=== PATIENT | female | born 1930 | race Caucasian/White ===

== ENCOUNTER 2018-10-28 11:59 | Inpatient (IN) ==
--- NOTE | 2018-10-28 16:43 | Internal Med History&Physical ---
Date of Encounter: 10/28/18 Time of Encounter: 16:38 Internal Medicine - H&P: HPI Chief complaint: cough and shortness of breath. Admitted From: Home History of present illness: Ms. Amezquita is a 87 year old female past medical history of diabetes and hypertension with pacemaker unknow cause was transferred from [facility] with complain of shortness of breath and cough as the hospital was full. Patient has been having coughing shortness of breath for past 4-5 days. Patient was seen by PCP and was started on azithromycin. She did not feel any improvement and had to go to ER for shortness of breath. She denies any fevers or chills. Denies any previous episodes of pneumonia. Denies any recent antibiotic usage. Denies any urinary or bowel complaints. She denies any history of heart attacks or kidney problems. She lives alone by herself and take care of herself. Patient had CBC and BMP flu testing EKG urinalyses and chest x-ray. Lab test showed white count of 14, hemoglobin of 9.5, bicarbonate of 20, glucose of 257, BUNs 48, creatinine 2.1, Flu testing unremarkable. Chest x-ray showed possible right lower lobe pneumonia. EKG had paced rhythm, urine analysis unremarkable for blood, leukocyte esterase, nitrates, WBC RBC and bacteria. She received Levaquin and nebulizer treatments and 500 mL of IV fluids. Her blood pressure was stable. Per nurse when she was initially transferred she was confused and altered.. On interview patient alert oriented and able to give good history. Complains of cough and shortness of breath for 4-5 days. Confirms above-mentioned history. Denies urinary complaints. Feeling much better in terms of breathing. Discussed CODE STATUS which she has not thought about before. Agrees to the keep full code for now however if needed would only to short-term life support. Son would be next of kin. Patient currently at home on medication including verapamil, glyburide, irbesartan, mirtazapine and azithromycin. Past Med Surg Social Fam HX - Past Medical History Attestation: Yes The following information was validated with the patient. Medical history: diabetes, hypertension - Past Surgical History Surgical History: pacemaker - Social History Smoking Status: Never smoker Smokeless Tobacco Status: No Alcohol use: none Drug use: none Current living situation: Home - Independent Activity Level: Independent ambulation - Family History Father Living Status: Hx Family Cardiac Disorders: No Hx Family Respiratory Disorders: No Son Living Status: Still Living Hx Family Cardiac Disorders: No Hx Family Respiratory Disorders: No Brother Hx Family Cancer: Yes (unknown) Mother Hx Family Endocrine Disorder: Yes (diabetes) Internal Medicine - H&P: Meds Allergy/AdvReac Type Severity Reaction Status Date / Time No Known Allergies Allergy Verified 10/28/18 17:18 All Systems PM: A 10-system review of systems was performed and is negative for pertinent findings except as documented above in the HPI. - Constitutional Exam: Constitutional: Vitals as noted. Conversant. mild respiratory Distress. Eyes : Sclera white, conjunctiva clear, no lid lag, PEARLA. ENT : Grossly normal hearing. Oropharyngeal exam unremarkable. Moist mucus membranes. No JVD, no cervical lymphadenopathy. no thyromegaly or mass. Respiratory : mild accessory muscle use, no rales,. rhonchi heard on RLL. Cardiovascular : RRR, +S1, +S2. no murmur, gallop, rubs. No chest wall tenderness GI/Abdominal : Soft, Non-tender, Non-distended, normal bowel sounds, soft, no peritoneal signs. no orgenomegaly or mass appreciated. no hernia. Musculoskeletal: no deformity noted. no edema or cyanosis. warm extremities, pulses palpable and symmetrical in UE/LE. no calf tenderness. Neurological: AO X3, CN II-XII grossly intact, grossly normal motor and sensory exam. Skin: No skin rash, lesions or ulcers noted. Pych: Good insight and judgement. Intact memory. AOx3. Internal Med - H&P Results - Labs Labs: labs from [facility] including EKG, cbc, bmp, ua, cxr and flu test results reviewed. - Assessment and plan (1) Pneumonia Current Visit: Yes Status: Acute Assessment and plan: - Continue patient on Levaquin - We will follow up blood cultures and sputum cultures - flu testing negative. Will obtain respiratory infectious panel - Continue with IV fluids - keep on duonebs Qualifiers: Pneumonia type: due to unspecified organism Laterality: right Lung location: lower lobe of lung Qualified Code(s): J18.1 - Lobar pneumonia, unspecified organism (2) HTN (hypertension) Current Visit: Yes Status: Acute Assessment and plan: - Continue with home medications. - We will hold ARB Qualifiers: Hypertension type: essential hypertension Qualified Code(s): I10 - Essential (primary) hypertension (3) Diabetes type 2, uncontrolled Current Visit: Yes Status: Acute Assessment and plan: - Continue Accu-Cheks and sliding scale with ADA diet after passing swallow evaluation Qualifiers: Glycemic state: with hyperglycemia Qualified Code(s): E11.65 - Type 2 diabetes mellitus with hyperglycemia (4) Anemia Current Visit: Yes Status: Acute Assessment and plan: - Denies any dark color stool. No obvious acute bleeding - Possibly related to chronic kidney disease - Has not had any colonoscopy in past - We will obtain iron panel, ferritin, vitamin B12 and folate Qualifiers: Chronic kidney disease stage: unspecified stage Qualified Code(s): N18.9 - Chronic kidney disease, unspecified; D63.1 - Anemia in chronic kidney disease (5) Abnormal urinalysis Current Visit: Yes Status: Acute Assessment and plan: - Denies any urinary complaints - Repeat UA (6) MELL (acute kidney injury) Current Visit: Yes Status: Acute Assessment and plan: - Patient does not know whether she has kidney problems - Unknown baseline - Likely related to diabetes and blood pressure and has CKD - Obtain renal ultrasound - bun/creatinine more than 23. Likely some component of prerenal on CKD (7) DVT prophylaxis Current Visit: Yes Status: Acute Assessment and plan: - heparin - Time Spent With Patient Total time spent is greater than 50% in coordination of care (as documented) at patient's floor/unit and/or counseling patient:
[2018-10-28] MEDS ORDERED: Naloxone 0.4 MG/ML INJ IVP PRN (17:18)
[2018-10-28] MEDS ORDERED: Ipratropium/Albuterol Neb 3 ML IH PRN (17:28)
[2018-10-28] MEDS ORDERED: Ipratropium/Albuterol Neb 3 ML ONE (17:46)
[2018-10-28] MEDS: Ipratropium/Albuterol Neb 3 ML IH SCH (21:43)
[2018-10-28] MEDS: *HR* Heparin 5,000 UNIT/ML VIAL SQ SCH (21:46)
[2018-10-28] MEDS ORDERED: Acetaminophen 325 MG TABLET PO ONE (22:44)
[2018-10-29 00:08] LABS: Adenovirus Not Detected (Not Detect); Bordetella Pertussis Not Detected (Not Detect); Chlamydophila pneumoniae Not Detected (Not Detect); Coronavirus 229E Not Detected (Not Detect); Coronavirus HKU1 Not Detected (Not Detect); Coronavirus NL63 Not Detected (Not Detect); Coronavirus OC43 Not Detected (Not Detect); Human Metapneumovirus Not Detected (Not Detect); Human Rhinovirus/Enterovirus Not Detected (Not Detect); Influenza A Subtype 2009 H1 Not Detected (Not Detect); Influenza A Untypeable Not Detected (Not Detect); Influenza B Not Detected (Not Detect); Mycoplasma pneumoniae Not Detected (Not Detect); Parainfluenza Virus 1 Not Detected (Not Detect); Parainfluenza Virus 2 Not Detected (Not Detect); Parainfluenza Virus 3 Not Detected (Not Detect); Parainfluenza Virus 4 Not Detected (Not Detect); Respiratory Syncytial Virus DETECTED (Not Detect)
[2018-10-29] MEDS: Ringers Solution, Lactated 1,000 ML IVC SCH ×2 (00:15→05:50)
[2018-10-29] MEDS: Ipratropium/Albuterol Neb 3 ML IH SCH ×4 (04:46→23:00)
[2018-10-29] MEDS: *HR* Heparin 5,000 UNIT/ML VIAL SQ SCH ×3 (05:50→21:00)
[2018-10-29 07:25] LABS: Basophils # 0.1 K/mcL (0.0-0.2); Basophils % 0.4 %; Eosinophils % 0.2 %; Hematocrit 30.2 % (35.3-44.9); Immature Granulocytes % 0.6 % (0-4); Lymphocytes # 0.9 K/mcL (0.6-4.6); Lymphocytes % 5.9 %; Mean Corpuscular HGB Conc 29.8 g/dL (31.6-35.5); Mean Corpuscular Hemoglobin 28.1 pg (28.0-33.3); Mean Corpuscular Volume 94.4 fL (83.0-100.0); Mean Platelet Volume 11.3 fL (9.4-12.4); Monocytes # 0.8 K/mcL (0.0-1.3); Monocytes % 5.3 %; Neutrophils # 13.6 K/mcL (1.6-8.9); Platelet Count 212 K/mcL (140-400); Red Cell Distribution Width 15.3 % (11.5-14.5); Segmented Neutrophils % 87.6 %
[2018-10-29 08:06] LABS: Folate 22.2 ng/mL (3.0-16.0)
[2018-10-29] MEDS: Insulin LISPRO 300 UNITS/3 ML VIAL SQ SCH ×3 (08:09→17:36)
[2018-10-29 08:11] LABS: BUN/Creatinine Ratio 26 (6-26); Blood Urea Nitrogen 45 mg/dL (8-23); Calcium 9.1 mg/dL (8.6-10.3); Carbon Dioxide 18 mEq/L (23-29); Chloride 114 mEq/L (98-107); Ferritin 37 ng/mL (10-120); Glucose 164 mg/dL (70-105); Iron < 10 mcg/dL (50-170); Osmolality,Calculated 307 (280-300); Potassium 4.8 mEq/L (3.5-5.1); Sodium 141 mEq/L (136-145); Thyroid Stimulating Hormone 3.954 mcIU/mL (0.340-5.600); Transferrin 238 mg/dL (203-362); eGFR For Non-African Americans 28 (> 60)
[2018-10-29] MEDS ORDERED: Levofloxacin 750 MG/150 ML 750 MG/150 ML BAG IVPB SCH (09:00)
[2018-10-29 09:26] LABS: Estimated Average Glucose 186 mg/dl; Hemoglobin A1C 8.1 %
--- NOTE | 2018-10-29 09:52 | Internal Med Progress Note ---
Hospitalist Progress Note - Encounter Date of Encounter: 10/29/18 Time of Encounter: 09:51 - Subjective Interval History: Patient seen and examined this morning in the chest. No acute overnight events. Breathing slightly better. No fever chills nausea vomiting or diarrhea. - Exam Vitals: Temp Pulse Resp BP Pulse Ox 97.7 F 103 16 159/75 95 10/29/18 07:02 10/29/18 07:02 10/29/18 07:02 10/29/18 07:02 10/29/18 07:02 Exam: Constitutional: Vitals as noted. Conversant. mild respiratory Distress. Respiratory : mild accessory muscle use, no rales,. rhonchi heard on RLL. Crackes heard on both base. Cardiovascular : RRR, +S1, +S2. no murmur, gallop, rubs. No chest wall tenderness GI/Abdominal : Soft, Non-tender, Non-distended, normal bowel sounds, soft, no peritoneal signs. no orgenomegaly or mass appreciated. no hernia. Musculoskeletal: no deformity noted. 1+ edema or no cyanosis. warm extremities, pulses palpable and symmetrical in UE/LE. no calf tenderness. Neurological: AO X3, CN II-XII grossly intact, grossly normal motor and sensory exam. Pych: Good insight and judgement. Intact memory. AOx3. - Assessment and Plan (1) Pneumonia Current Visit: Yes Status: Acute (2) HTN (hypertension) Current Visit: Yes Status: Acute (3) Diabetes type 2, uncontrolled Current Visit: Yes Status: Acute (4) Anemia Current Visit: Yes Status: Acute (5) Abnormal urinalysis Current Visit: Yes Status: Acute (6) MELL (acute kidney injury) Current Visit: Yes Status: Acute (7) DVT prophylaxis Current Visit: Yes Status: Acute - Summary of Assessment and Plan Summary of Assessment and Plan: Pneumonia - Failed outpatient therapy - follow up blood cultures and sputum cultures, strep and legionella antigen. - White count improving from 14 to 15. - flu testing negative. RIP positive for RSV. c/w levaquin given secondary bacterial infection still possible - Will start steroids given RSV positive - Stop IVF given mild hyperchloremic acidosis and pedal edema and crackles. Obtain ECHO. - c/w duonebs HTN - hold ARB - start home verapamil Diabetes type 2, uncontrolled - Continue Accu-Cheks and sliding scale with ADA diet - Start levemir 5 HS. - HbA1c of 8.1 Anemia - Denies any dark color stool. No obvious acute bleeding - Possibly related to chronic kidney disease - Has not had any colonoscopy in past - iron panel, ferritin suggest iron deficiency. vitamin B12 and folate normal. Start iron supplementation Abnormal urinalysis - Denies any urinary complaints - Repeat UA MELL - Patient does not know whether she has kidney problems - Unknown baseline - Likely related to diabetes and HTN and has CKD, ARB use - f/u renal ultrasound - improved with IVF. But will hold now as above. DVT prophylaxis - heparin PT/OT - Time Spent with Patient Total time spent is greater than 50% in coordination of care (as documented) at patient's floor/unit and/or counseling patient: Internal Medicine: Result - Labs CBC & Chem 7: 10/29/18 07:07 10/29/18 07:07 Labs: Short CBC 10/29/18 Range/Units 07:07 WBC 15.5 H (4.3-11.1) K/mcL Hgb 9.0 L (11.5-15.4) g/dL Hct 30.2 L (35.3-44.9) % Plt Count 212 (140-400) K/mcL Neutrophils # 13.6 H (1.6-8.9) K/mcL BMP 10/29/18 07:07 Sodium 141 Potassium 4.8 Chloride 114 H Carbon Dioxide 18 L BUN 45 H Creatinine 1.73 H Glucose 164 H Calcium 9.1 Consult Discharge Plan - Plan Referrals: Jammie Schumacher MD [Primary Care Provider] - (1) Pneumonia Qualifiers: Pneumonia type: due to unspecified organism Laterality: right Lung location: lower lobe of lung Qualified Code(s): J18.1 - Lobar pneumonia, unspecified organism (2) HTN (hypertension) Qualifiers: Hypertension type: essential hypertension Qualified Code(s): I10 - Essential (primary) hypertension (3) Diabetes type 2, uncontrolled Qualifiers: Glycemic state: with hyperglycemia Qualified Code(s): E11.65 - Type 2 diabetes mellitus with hyperglycemia (4) Anemia Qualifiers: Chronic kidney disease stage: unspecified stage Qualified Code(s): N18.9 - Chronic kidney disease, unspecified; D63.1 - Anemia in chronic kidney disease
[2018-10-29] MEDS ORDERED: D5% in 0.45% NACL w KCl 10 MEQ/1,000 ML MLS IVC SCH (10:00)
[2018-10-29 12:56] LABS: Bilirubin,Urine Negative (Negative); Blood,Urine Large (Negative); Clarity,Urine Cloudy (Clear); Color,Urine Yellow (Yellow); Glucose,Urine (UA) Normal (Normal); Ketones,Urine Negative (Negative); Leukocyte Esterase,Urine Large (Negative); Nitrite,Urine Positive (Negative); PH,Urine 5.5 pH Units (5.0-8.0); Protein,Urine >=300 mg/dL (Neg-Trace); Specific Gravity,Urine 1.025 (1.010-1.025); Urobilinogen,Urine Normal (Normal)
[2018-10-29 13:03] LABS: RBC,Urine TNTC per hpf (0-3); Squamous Epithelial Cell,Urine Many per lpf (None-Few); WBC,Urine TNTC per hpf (0-3)
[2018-10-29 13:04] LABS: Bacteria,Urine Many per hpf (None-Few)
[2018-10-29 13:05] LABS: Hyaline Casts,Urine Few per lpf (None-Few)
[2018-10-29 13:06] LABS: Sodium, Urine 78.9 mEq/L
[2018-10-29] MEDS ORDERED: MethylPREDNISolone 40 MG/ML VIAL IVP ONE (13:35)
[2018-10-29] MEDS ORDERED: Furosemide 20 MG/2 ML VIAL IVP STA (16:55)
[2018-10-29 17:18] LABS: ABG Base Excess -8 mEq/L (-2 to 3); ABG HCO3 18 mEq/L (21-27); ABG Oxygen Saturation 95 % (95-98); ABG PCO2 35 mmHg (35-45); ABG PO2 82 mmHg (85-104); ABG TCO2 19 mEq/L (20-26)
[2018-10-29] MEDS: Insulin DETEMIR 100 UNIT/ML X5UNITS SQ SCH (21:00)
[2018-10-29] MEDS ORDERED: Furosemide 20 MG/2 ML VIAL IVP ONE (21:00)
[2018-10-30 04:34] LABS: Basophils % 0.2 %; Eosinophils % 0.1 %; Hematocrit 30.2 % (35.3-44.9); Hemoglobin 8.9 g/dL (11.5-15.4); Immature Granulocytes % 0.4 % (0-4); Lymphocytes # 0.4 K/mcL (0.6-4.6); Lymphocytes % 3.4 %; Mean Corpuscular HGB Conc 29.5 g/dL (31.6-35.5); Mean Corpuscular Hemoglobin 28.7 pg (28.0-33.3); Mean Corpuscular Volume 97.4 fL (83.0-100.0); Mean Platelet Volume 12.2 fL (9.4-12.4); Monocytes # 0.3 K/mcL (0.0-1.3); Platelet Count 183 K/mcL (140-400); Red Cell Distribution Width 15.4 % (11.5-14.5); Segmented Neutrophils % 93.9 %
[2018-10-30 04:52] LABS: Calcium 8.6 mg/dL (8.6-10.3); Potassium 4.6 mEq/L (3.5-5.1)
[2018-10-30 05:06] LABS: Neutrophils # 11.6 K/mcL (1.6-8.9)
[2018-10-30 05:07] LABS: Platelet Estimate Normal (Normal)
[2018-10-30] MEDS: *HR* Heparin 5,000 UNIT/ML VIAL SQ SCH ×3 (05:44→21:16)
[2018-10-30] MEDS: Ipratropium/Albuterol Neb 3 ML IH SCH ×5 (05:54→23:36)
[2018-10-30] MEDS ORDERED: Mirtazapine 15 MG TABLET PO SCH (09:00)
[2018-10-30] MEDS ORDERED: MethylPREDNISolone 40 MG/ML VIAL IVP SCH (09:00)
[2018-10-30] MEDS: Verapamil ER (24 HR) 240 MG TABLET.ER PO SCH (09:05)
[2018-10-30] MEDS: Levofloxacin 750 MG/150 ML 750 MG/150 ML BAG IVPB SCH (09:05)
[2018-10-30] MEDS: Insulin LISPRO 300 UNITS/3 ML VIAL SQ SCH ×4 (09:06→21:17)
[2018-10-30] MEDS ORDERED: Dextrose Gel 15 GM/37.5 ML TUBE PO PRN ×2 (09:15)
[2018-10-30] MEDS ORDERED: D5% in Water 1,000 ML IVC PRN (09:15)
[2018-10-30] MEDS ORDERED: *HR* Dextrose 50 % in Water (Syg) 50 ML SYRINGE IVP PRN (09:15)
--- NOTE | 2018-10-30 14:00 | Internal Med Progress Note ---
Hospitalist Progress Note - Encounter Date of Encounter: 10/30/18 Time of Encounter: 13:58 - Subjective Interval History: Pt seen and examined in the room She is sitting in chair, breathing normally. No cough, fever, sob overnight. - Exam Vitals: Temp Pulse Resp BP Pulse Ox 97.7 F 83 16 124/63 97 10/30/18 11:20 10/30/18 11:20 10/30/18 11:20 10/30/18 11:20 10/30/18 11:20 Exam: Constitutional: Vitals as noted. Conversant. mild respiratory Distress. Respiratory : mild accessory muscle use, no rales,. rhonchi heard on RLL. Crackes heard on both base. Cardiovascular : RRR, +S1, +S2. no murmur, gallop, rubs. No chest wall tenderness GI/Abdominal : Soft, Non-tender, Non-distended, normal bowel sounds, soft, no peritoneal signs. no orgenomegaly or mass appreciated. no hernia. Musculoskeletal: no deformity noted. 1+ edema or no cyanosis. warm extremities, pulses palpable and symmetrical in UE/LE. no calf tenderness. Neurological: AO X3, CN II-XII grossly intact, grossly normal motor and sensory exam. Pych: Good insight and judgement. Intact memory. AOx3. - Assessment and Plan (1) Acute respiratory failure Current Visit: Yes Status: Acute Assessment and Plan: 87-year-old female with no history of lung disease presented with acute onset of cough and shortness of breath. She was originally treated at outside hospital for pneumonia and acute renal failure. She then was transferred to this hospital for further management. Chest x-ray at the outside hospital showed possible right-sided pneumonia. Respiratory panel showed positive RSV. Patient was treated with IV antibiotics, bronchodilators, and the IV steroids. Yesterday morning, patient was found tachypniec and sob. ABG at that time showed respiratory acidosis with PCO2 at 80, patient was placed on BiPAP and she also received 1 dose of IV Lasix. - She seems breathing better this morning, O2 sats 99% on 6 L nasal cannula. No wheezing or rhonchi on physical exam, however diffuse crackles on the right side and noted. - DuoNeb changed to every 4 hours scheduled, stop IV steroids as no indication - encouraged ambulation. (2) Pneumonia Current Visit: Yes Status: Acute Assessment and Plan: - Continue patient on Levaquin - We will follow up blood cultures and sputum cultures (3) UTI (urinary tract infection) Current Visit: Yes Status: Acute Assessment and Plan: Continue IV Levaquin, pending urine cx. (4) MELL (acute kidney injury) Current Visit: Yes Status: Acute Assessment and Plan: - Patient does not know whether she has kidney problems - Unknown baseline - Likely related to diabetes and blood pressure and has CKD - Obtain renal ultrasound (5) HTN (hypertension) Current Visit: No Status: Chronic Assessment and Plan: - Continue with home medications. - We will hold ARB (6) Diabetes type 2, uncontrolled Current Visit: No Status: Chronic Assessment and Plan: - Continue Accu-Cheks and sliding scale with ADA diet after passing swallow evaluation (7) Anemia Current Visit: No Status: Chronic Assessment and Plan: - Denies any dark color stool. No obvious acute bleeding - Possibly related to chronic kidney disease - Has not had any colonoscopy in past - low iron panel, but normal ferritin, vitamin B12 and folate. (8) DVT prophylaxis Current Visit: Yes Status: Acute Assessment and Plan: - heparin - Time Spent with Patient Total time spent is greater than 50% in coordination of care (as documented) at patient's floor/unit and/or counseling patient: Greater than 35 minutes Plan of Care Discussed with: patient Internal Medicine: Result - Labs CBC & Chem 7: 10/30/18 03:20 10/30/18 03:20 Labs: Short CBC 10/30/18 Range/Units 03:20 WBC 12.3 H (4.3-11.1) K/mcL Hgb 8.9 L (11.5-15.4) g/dL Hct 30.2 L (35.3-44.9) % Plt Count 183 (140-400) K/mcL Neutrophils # 11.6 H (1.6-8.9) K/mcL BMP 10/30/18 03:20 Sodium 140 Potassium 4.6 Chloride 113 H Carbon Dioxide 16 L BUN 49 H Creatinine 1.84 H Glucose 101 Calcium 8.6 - ABG Interpretation ABG results: ABG ABG pH 7.30 pH Units (7.32-7.45) L 10/29/18 17:15 ABG pCO2 35 mmHg (35-45) 10/29/18 17:15 ABG pO2 82 mmHg (85-104) L 10/29/18 17:15 ABG O2 Saturation 95 % (95-98) 10/29/18 17:15 - Impressions Impressions Echocardiogram 10/29/18 13:31 Impressions: Incomplete study due to clinical status. LVEF unable to assess. Unable to assess. Complete study when clinical status allows. Findings: Study Quality * Incomplete study due to clinical status. ECG Findings * Atrial fibrillation.RVR. Left Ventricle * LVEF unable to assess%. * Normal LV chamber size, wall thickness. Right Ventricle * Unable to assess. Consult Discharge Plan - Plan Referrals: Jammie Schumacher MD [Primary Care Provider] - (1) Acute respiratory failure Qualifiers: Respiratory failure complication: hypercapnia Qualified Code(s): J96.02 - Acute respiratory failure with hypercapnia (2) Pneumonia Qualifiers: Pneumonia type: due to unspecified organism Laterality: right Lung location: lower lobe of lung Qualified Code(s): J18.1 - Lobar pneumonia, unspecified organism (3) UTI (urinary tract infection) Qualifiers: Urinary tract infection type: acute cystitis Hematuria presence: with hematuria Qualified Code(s): N30.01 - Acute cystitis with hematuria (5) HTN (hypertension) Qualifiers: Hypertension type: essential hypertension Qualified Code(s): I10 - Essential (primary) hypertension (6) Diabetes type 2, uncontrolled Qualifiers: Glycemic state: with hyperglycemia Qualified Code(s): E11.65 - Type 2 diabete s mellitus with hyperglycemia (7) Anemia Qualifiers: Chronic kidney disease stage: unspecified stage Qualified Code(s): N18.9 - Chronic kidney disease, unspecified; D63.1 - Anemia in chronic kidney disease
[2018-10-30] MEDS: Insulin DETEMIR 100 UNIT/ML X5UNITS SQ SCH (21:16)
[2018-10-30] MEDS ORDERED: diazePAM 10 MG/2 ML SYRINGE IVP STA (22:47)
[2018-10-31] MEDS: Ipratropium/Albuterol Neb 3 ML IH SCH ×5 (04:15→20:07)
[2018-10-31] MEDS: *HR* Heparin 5,000 UNIT/ML VIAL SQ SCH ×4 (06:31→21:01)
[2018-10-31 07:27] LABS: Basophils % 0.1 %; Hematocrit 31.7 % (35.3-44.9); Hemoglobin 9.5 g/dL (11.5-15.4); Immature Granulocytes % 0.7 % (0-4); Lymphocytes # 0.8 K/mcL (0.6-4.6); Lymphocytes % 4.3 %; Mean Corpuscular Hemoglobin 28.6 pg (28.0-33.3); Mean Corpuscular Volume 95.5 fL (83.0-100.0); Mean Platelet Volume 11.2 fL (9.4-12.4); Monocytes # 1.2 K/mcL (0.0-1.3); Monocytes % 6.2 %; Platelet Count 226 K/mcL (140-400); Red Blood Count 3.32 M/mcL (3.82-4.97); Red Cell Distribution Width 15.2 % (11.5-14.5); Segmented Neutrophils % 88.7 %
[2018-10-31 07:47] LABS: Calcium 9.3 mg/dL (8.6-10.3); Potassium 4.1 mEq/L (3.5-5.1)
[2018-10-31] MEDS: Insulin LISPRO 300 UNITS/3 ML VIAL SQ SCH ×4 (08:00→21:02)
[2018-10-31] MEDS ORDERED: Iron Sucrose Complex 400 MG in 0.9 % Sodium Chloride 250 ML IVPB ONE (08:00)
[2018-10-31] MEDS ORDERED: Albuterol 2.5 MG/3 ML NEBULIZER IH PRN (08:35)
[2018-10-31] MEDS: Verapamil ER (24 HR) 240 MG TABLET.ER PO SCH (09:44)
--- NOTE | 2018-10-31 09:52 | Internal Med Progress Note ---
Hospitalist Progress Note - Encounter Date of Encounter: 10/31/18 Time of Encounter: 09:00 - Subjective Interval History: 87-year-old female with no history of lung disease presented with acute onset of cough and shortness of breath. She was originally treated at outside hospital for pneumonia and acute renal failure. She then was transferred to this ospital for further management. Chest x-ray at the outside hospital showed possible right-sided pneumonia. Respiratory panel showed positive RSV. Patient was treated with IV antibiotics, bronchodilators, and the IV steroids. Yesterday morning, patient was found tachypniec and sob. ABG at that time showed respiratory acidosis with PCO2 at 80, patient was placed on BiPAP and she also received 1 dose of IV Lasix. - Exam Vitals: Temp Pulse Resp BP Pulse Ox 98.5 F 71 18 165/70 96 10/31/18 07:25 10/31/18 07:25 10/31/18 07:31 10/31/18 07:25 10/31/18 07:31 Exam: Constitutional: Vitals as noted. Conversant. mild respiratory Distress. Respiratory : mild accessory muscle use, no rales,. rhonchi heard on RLL. Crackes heard on both base. Cardiovascular : RRR, +S1, +S2. no murmur, gallop, rubs. No chest wall tenderness GI/Abdominal : Soft, Non-tender, Non-distended, normal bowel sounds, soft, no peritoneal signs. no orgenomegaly or mass appreciated. no hernia. Musculoskeletal: no deformity noted. 1+ edema or no cyanosis. warm extremities, pulses palpable and symmetrical in UE/LE. no calf tenderness. Neurological: AO X3, CN II-XII grossly intact, grossly normal motor and sensory exam. Pych: Good insight and judgement. Intact memory. AOx3. - Assessment and Plan (1) Acute respiratory failure Current Visit: Yes Status: Acute Assessment and Plan: Acute hypoxic hypercapnic respiratory failure likely secondary to COPD exacerbation, viral and bacterial pneumonia Pt has diffuse wheezing this am. Will start on IV steroids, continue levaquin, nebs and BIPAP as needed (2) Pneumonia Current Visit: Yes Status: Acute Assessment and Plan: Continue patient on Levaquin and supportive care for viral pneumonia We will follow up blood cultures and sputum cultures (3) HTN (hypertension) Current Visit: Yes Status: Acute Assessment and Plan: Continue with home medications. We will hold ARB (4) Diabetes type 2, uncontrolled Current Visit: Yes Status: Acute Assessment and Plan: Continue Accu-Cheks and sliding scale with ADA diet after passing swallow evaluation (5) Anemia Current Visit: Yes Status: Acute Assessment and Plan: Denies any dark color stool. No obvious acute bleeding. Possibly related to c hronic kidney disease Continue ferrous sulfate. Gave one dose of venofer this am due to severe iron deficiency (6) MELL (acute kidney injury) Current Visit: Yes Status: Acute Assessment and Plan: MELL on CKD stage 3. Possibly secondary to poor perfusion from CHF Will diurese gently and monitor creatinine (7) UTI (urinary tract infection) Current Visit: Yes Status: Acute Assessment and Plan: Continue IV Levaquin, pending urine cx. (8) DVT prophylaxis Current Visit: Yes Status: Acute Assessment and Plan: heparin (9) Pressure ulcer Current Visit: Yes Status: Acute Assessment and Plan: Pt has stage 2 pressure ulcer. Continue dressing per wound care DVT Prophylaxis: heparin sc - Time Spent with Patient Total time spent is greater than 50% in coordination of care (as documented) at patient's floor/unit and/or counseling patient: Internal Medicine: Result - Labs CBC & Chem 7: 10/31/18 07:16 10/31/18 07:16 Labs: Short CBC 10/31/18 Range/Units 07:16 WBC 19.2 H D (4.3-11.1) K/mcL Hgb 9.5 L (11.5-15.4) g/dL Hct 31.7 L (35.3-44.9) % Plt Count 226 (140-400) K/mcL Neutrophils # 17.0 H (1.6-8.9) K/mcL BMP 10/31/18 07:16 Sodium 142 Potassium 4.1 Chloride 111 H Carbon Dioxide 18 L BUN 70 H Creatinine 2.24 H Glucose 86 Calcium 9.3 - ABG Interpretation ABG results: ABG ABG pH 7.30 pH Units (7.32-7.45) L 10/29/18 17:15 ABG pCO2 35 mmHg (35-45) 10/29/18 17:15 ABG pO2 82 mmHg (85-104) L 10/29/18 17:15 ABG O2 Saturation 95 % (95-98) 10/29/18 17:15 - Impressions Impressions Chest X-Ray 10/30/18 13:25 IMPRESSION: Mild pulmonary vascular congestion and small bilateral pleural effusions does raise the possibility of mild or low grade congestive heart failure. Asymmetric airspace opacity right lower lobe would favor pneumonia or asymmetric pulmonary edema. D/ / Jose Mckenzie MD / Jose Mckenzie MD Interpreting Provider: Jose Mckenzie MD Consult Discharge Plan - Plan Referrals: Jammie Schumacher MD [Primary Care Provider] - (1) Acute respiratory failure Qualifiers: Respiratory failure complication: hypercapnia Qualified Code(s): J96.02 - Acute respiratory failure with hypercapnia (2) Pneumonia Qualifiers: Pneumonia type: due to unspecified organism Laterality: right Lung location: lower lobe of lung Qualified Code(s): J18.1 - Lobar pneumonia, unspecified organism (3) HTN (hypertension) Qualifiers: Hypertension type: essential hypertension Qualified Code(s): I10 - Essential (primary) hypertension (4) Diabetes type 2, uncontrolled Qualifiers: Glycemic state: with hyperglycemia Qualified Code(s): E11.65 - Type 2 diab etes mellitus with hyperglycemia (5) Anemia Qualifiers: Chronic kidney disease stage: unspecified stage Qualified Code(s): N18.9 - Chronic kidney disease, unspecified; D63.1 - Anemia in chronic kidney disease (7) UTI (urinary tract infection) Qualifiers: Urinary tract infection type: acute cystitis Hematuria presence: with hematuria Qualified Code(s): N30.01 - Acute cystitis with hematuria (9) Pressure ulcer Qualifiers: Pressure injury location: sacral region Pressure injury stage: stage 2 Qualified Code(s): L89.152 - Pressure ulcer of sacral region, stage 2
[2018-10-31] MEDS: Budesonide/Formoterol 160/4.5 1 PUFF INH IH SCH ×2 (11:20→20:06)
[2018-10-31] MEDS: methylPREDNISolone 125 MG/2 ML VIAL IVP SCH ×3 (12:00→23:54)
[2018-10-31] MEDS: Furosemide 20 MG/2 ML VIAL IVP SCH ×2 (12:01→21:01)
[2018-10-31] MEDS: Mirtazapine 15 MG TABLET PO SCH (21:00)
[2018-10-31] MEDS: Insulin DETEMIR 100 UNIT/ML X5UNITS SQ SCH (21:05)
[2018-11-01] MEDS: Ipratropium/Albuterol Neb 3 ML IH SCH ×7 (00:02→23:39)
[2018-11-01 04:58] LABS: Basophils % 0.1 %; Hematocrit 27.3 % (35.3-44.9); Hemoglobin 8.3 g/dL (11.5-15.4); Immature Granulocytes % 0.9 % (0-4); Lymphocytes # 0.7 K/mcL (0.6-4.6); Lymphocytes % 4.5 %; Mean Corpuscular HGB Conc 30.4 g/dL (31.6-35.5); Mean Corpuscular Hemoglobin 28.4 pg (28.0-33.3); Mean Corpuscular Volume 93.5 fL (83.0-100.0); Mean Platelet Volume 11.4 fL (9.4-12.4); Monocytes # 0.3 K/mcL (0.0-1.3); Monocytes % 2.3 %; Neutrophils # 13.4 K/mcL (1.6-8.9); Platelet Count 198 K/mcL (140-400); Red Blood Count 2.92 M/mcL (3.82-4.97); Segmented Neutrophils % 92.2 %
[2018-11-01 05:16] LABS: Calcium 8.7 mg/dL (8.6-10.3); Magnesium 2.3 mg/dL (1.6-2.6); Phosphorous 4.5 mg/dL (2.7-4.5); Potassium 3.9 mEq/L (3.5-5.1)
[2018-11-01] MEDS: *HR* Heparin 5,000 UNIT/ML VIAL SQ SCH ×3 (06:47→22:21)
[2018-11-01] MEDS: Budesonide/Formoterol 160/4.5 1 PUFF INH IH SCH ×2 (07:42→20:10)
[2018-11-01] MEDS: Insulin LISPRO 300 UNITS/3 ML VIAL SQ SCH ×4 (07:55→22:30)
[2018-11-01] MEDS: Verapamil ER (24 HR) 240 MG TABLET.ER PO SCH (07:56)
[2018-11-01] MEDS: methylPREDNISolone 125 MG/2 ML VIAL IVP SCH (07:56)
[2018-11-01] MEDS: Furosemide 20 MG/2 ML VIAL IVP SCH (07:56)
[2018-11-01] MEDS: Levofloxacin 750 MG/150 ML 750 MG/150 ML BAG IVPB SCH (07:56)
--- NOTE | 2018-11-01 08:14 | Internal Med Progress Note ---
Hospitalist Progress Note - Encounter Date of Encounter: 11/01/18 Time of Encounter: 08:10 - Subjective Interval History: 87-year-old female with no history of lung disease presented with acute onset of cough and shortness of breath. She was originally treated at outside hospital for pneumonia and acute renal failure. She then was transferred to this ospital for further management. Chest x-ray at the outside hospital showed possible right-sided pneumonia. Respiratory panel showed positive RSV. Patient was treated with IV antibiotics, bronchodilators, and the IV steroids. Yesterday morning, patient was found tachypniec and sob. ABG at that time showed respiratory acidosis with PCO2 at 80, patient was placed on BiPAP and she also received 1 dose of IV Lasix. - Exam Vitals: Temp Pulse Resp BP Pulse Ox 98.1 F 77 20 130/63 95 11/01/18 07:17 11/01/18 07:17 11/01/18 07:17 11/01/18 07:17 11/01/18 07:17 Exam: Constitutional: Vitals as noted. Conversant. mild respiratory Distress. Respiratory : mild accessory muscle use, no rales,. rhonchi heard on RLL. Crackes heard on both base. Cardiovascular : RRR, +S1, +S2. no murmur, gallop, rubs. No chest wall tenderness GI/Abdominal : Soft, Non-tender, Non-distended, normal bowel sounds, soft, no peritoneal signs. no orgenomegaly or mass appreciated. no hernia. Musculoskeletal: no deformity noted. 1+ edema or no cyanosis. warm extremities, pulses palpable and symmetrical in UE/LE. no calf tenderness. Neurological: AO X3, CN II-XII grossly intact, grossly normal motor and sensory exam. Pych: Good insight and judgement. Intact memory. AOx3. - Assessment and Plan (1) Acute respiratory failure Current Visit: Yes Status: Acute Assessment and Plan: Acute hypoxic hypercapnic respiratory failure likely secondary to COPD exacerbation, viral and bacterial pneumonia Pt has diffuse wheezing this am. Will start on IV steroids, continue levaquin, nebs and BIPAP as needed Improving. Oxygen needs decreased this am (2) Pneumonia Current Visit: Yes Status: Acute Assessment and Plan: Continue patient on Levaquin and supportive care for viral pneumonia We will follow up blood cultures and sputum cultures (3) Hydronephrosis Current Visit: Yes Status: Acute Assessment and Plan: HYdronephrosis with MELL on CKD. Will obtain CT abdomen to assess hydronephrosis (4) HTN (hypertension) Current Visit: Yes Status: Acute Assessment and Plan: Continue with home medications. We will hold ARB (5) Diabetes type 2, uncontrolled Current Visit: Yes Status: Acute Assessment and Plan: Continue Accu-Cheks and sliding scale with ADA diet after passing swallow evaluation (6) Anemia Current Visit: Yes Status: Acute Assessment and Plan: Denies any dark color stool. No obvious acute bleeding. Possibly related to chronic kidney disease Continue ferrous sulfate. Gave one dose of venofer this am due to severe iron deficiency (7) MELL (acute kidney injury) Current Visit: Yes Status: Acute Assessment and Plan: MELL on CKD stage 3. Possibly secondary to poor perfusion from CHF Will diurese gently and monitor creatinine. Patient contiues to have worsening creatinine Will discontinue diuresis and consult renal for further management (8) UTI (urinary tract infection) Current Visit: Yes Status: Acute Assessment and Plan: Continue IV Levaquin, pending urine cx. (9) Pressure ulcer Current Visit: Yes Status: Acute Assessment and Plan: Pt has stage 2 pressure ulcer. Continue dressing per wound care (10) DVT prophylaxis Current Visit: Yes Status: Acute Assessment and Plan: heparin DVT Prophylaxis: heparin sc - Time Spent with Patient Total time spent is greater than 50% in coordination of care (as documented) at patient's floor/unit and/or counseling patient: Internal Medicine: Result - Labs CBC & Chem 7: 11/01/18 04:23 11/01/18 04:23 Labs: Short CBC 11/01/18 Range/Units 04:23 WBC 14.6 H (4.3-11.1) K/mcL Hgb 8.3 L (11.5-15.4) g/dL Hct 27.3 L (35.3-44.9) % Plt Count 198 (140-400) K/mcL Neutrophils # 13.4 H (1.6-8.9) K/mcL BMP 11/01/18 04:23 Sodium 142 Potassium 3.9 Chloride 111 H Carbon Dioxide 19 L BUN 84 H Creatinine 2.46 H Glucose 187 H Calcium 8.7 - ABG Interpretation ABG results: ABG ABG pH 7.30 pH Units (7.32-7.45) L 10/29/18 17:15 ABG pCO2 35 mmHg (35-45) 10/29/18 17:15 ABG pO2 82 mmHg (85-104) L 10/29/18 17:15 ABG O2 Saturation 95 % (95-98) 10/29/18 17:15 - Impressions Impressions Echocardiogram 10/31/18 13:31 Impressions: LVEF 40-45%. Moderately dilated left ventricle. Moderate global left ventricular systolic dysfunction. Normal right ventricular structure and function. Moderately dilated left atrium. Moderate mitral annular calcification Moderate-severe eccentric mitral regurgitation. Posterior leaflet appears tethered. Moderate pulmonary hypertension. A device lead was visualized in the right atrium and right ventricle. Left Ventricular Wall Motion: Rest Echo Findings The apex, apical inferior, mid inferior, basal inferior, apical anterior, mid anterior, basal anterior, apical septal, mid inferior septal, basal inferior septal, apical lateral, mid anterior lateral, basal anterior lateral, mid anterior septal, mid inferior lateral, basal anterior septal and basal inferior lateral putnam were hypokinetic. Findings: Study Quality * Technically sub-optimal due to clinical status. ECG Findings * Atrial fibrillation. Left Ventricle * LVEF 40-45%. * Moderately dilated left ventricle. * Moderate global left ventricular systolic dysfunction. * Indeterminate diastolic function. * Atypical septal motion consistent with bundle branch block. Right Ventricle * Normal right ventricular structure and function. Left Atrium * Moderately dilated left atrium. Right Atrium * Normal right atrial size. Interatrial Septum * Interatrial septum not well evaluated. Aortic Valve * Trileaflet aortic valve. * No aortic regurgitation. * No aortic stenosis. * Normal aortic valve structure. Mitral Valve * Moderate mitral annular calcification * Moderate-severe eccentric mitral regurgitation. Posterior leaflet appears tethered. * Mild mitral stenosis. * Mean transmitral gradient is 6 mmHg. Tricuspid Valve * Mild tricuspid regurgitation. * Tricuspid valve not well visualized. * Moderate pulmonary hypertension. * Estimated RVSP is 49 mmHg. * Estimated RA pressure is 6 mmHg. Pulmonic Valve * Trace pulmonic regurgitation. * Pulmonic valve not well visualized. Aorta * Normally sized aortic root. Pericardium * The pericardium appears normal. IVC * Normal IVC dimensions and inspiratory collapse. Device lead * A device lead was visualized in the right atrium and right ventricle. Retroperitoneum Ultrasound 10/31/18 16:00 IMPRESSION: Small kidneys with mild right hydronephrosis. Bilateral renal cysts. Corticomedullary ratios are low normal. Renal size and cortical thickness is likely within normal limits for age. D/ / Jennifer Leong MD / Jennifer Leong MD Interpreting Provider: Jennifer Leong MD Consult Discharge Plan - Plan Referrals: Jammie Schumacher MD [Primary Care Provider] - (Patient is going to [facility]) (1) Acute respiratory failure Qualifiers: Respiratory failure complication: hypercapnia Qualified Code(s): J96.02 - Acute respiratory failure with hypercapnia (2) Pneumonia Qualifiers: Pneumonia type: due to unspecified organism Laterality: right Lung location: lower lobe of lung Qualified Code(s): J18.1 - Lobar pneumonia, unspecified organism (4) HTN (hypertension) Qualifiers: Hypertension type: essential hypertension Qualified Code(s): I10 - Essential (primary) hypertension (5) Diabetes type 2, uncontrolled Qualifiers: Glycemic state: with hyperglycemia Qualified Code(s): E11.65 - Type 2 diabetes mellitus with hyperglycemia (6) Anemia Qualifiers: Chronic kidney disease stage: unspecified stage Qualified Code(s): N18.9 - Chronic kidney disease, unspecified; D63.1 - Anemia in chronic kidney disease (8) UTI (urinary tract infection) Qualifiers: Urinary tract infection type: acute cystitis Hematuria presence: with hematuria Qualified Code(s): N30.01 - Acute cystitis with hematuria (9) Pressure ulcer Qualifiers: Pressure injury location: sacral region Pressure injury stage: stage 2 Qualified Code(s): L89.152 - Pressure ulcer of sacral region, stage 2
[2018-11-01] MEDS ORDERED: Acetylcysteine 10% 2 ML INHSOL IH ONE (09:42)
--- NOTE | 2018-11-01 11:44 | Nephrology Consult Note ---
<Lisa Bryan - Last Filed: 11/01/18 14:24> Date of Encounter: 11/01/18 Time of Encounter: 11:37 Assessment and Plan (1) Acute kidney injury superimposed on CKD Current Visit: Yes Status: Acute Unsure of baseline, would suggest obtaining records from PCP. Avoid nephrotoxins and renal dose. Strict I/O Retroperitoneal US did show right hydronephrosis, would suggest a CT to rule out or confirm. (2) Pressure ulcer Current Visit: Yes Status: Acute Per wound care. Qualifiers: Pressure injury location: sacral region Pressure injury stage: stage 2 Qualified Code(s): L89.152 - Pressure ulcer of sacral region, stage 2 (3) UTI (urinary tract infection) Current Visit: Yes Status: Acute New urine and culture ordered, last one appeared contaminated. Urine culture from 10/30/18 did show GraM + Cocci. Qualifiers: Urinary tract infection type: acute cystitis Hematuria presence: with hematuria Qualified Code(s): N30.01 - Acute cystitis with hematuria (4) Pneumonia Current Visit: Yes Status: Acute Blood cultures pending. Per primary. Qualifiers: Pneumonia type: due to unspecified organism Laterality: right Lung location: lower lobe of lung Qualified Code(s): J18.1 - Lobar pneumonia, unspecified organism History of Present Illness - Reason for Consult Consult date: 11/01/18 Chronic Kidney Disease Requesting physician: Miller Rubio - Chief Complaint pneumonia - History of Present Illness Ms. Amezquita is an 87 year old female who presented from [place] ER with shortness of breath and cough. Patient did not give much additional info in interview so much of the information was collected from the chart. Pt admitted to cough and shortness of breath of the past 4-5 days, was seen by PCP and started on azithromycin. She did not feel any better, so she went to ER for evaluation. Although patient appears alert and oriented for interview, she asked me twice if she was ever going to get her morning pills. I did look at the MAR and it does look like she did receive am medications. Unsure if this is her baseline or not. Patient states she does not see a [facility]ker outpatient. Per [facility] she is not established with our office. She states she does see her PCP "every once in a while". Limited labs available in [facility]. Initial GFR was 28, again unsure if this is her baseline. Denies fever, chills, nausea, vomiting, or diarrhea. Denies chest pain. She does live at home alone. She denies etoh, tobacco, or illicit drug use. Past Med Surg Social Fam HX - Past Medical History Medical history: diabetes, hypertension Additional medical history: pacemaker Psychiatric history: no psych history - Past Surgical History Surgical History: pacemaker - Social History Smoking Status: Never smoker Smokeless Tobacco Status: No Alcohol use: none Drug use: none - Family History Mother Hx Family Endocrine Disorder: Yes (diabetes) Father Living Status: Hx Family Cardiac Disorders: No Hx Family Respiratory Disorders: No Son Living Status: Still Living Hx Family Cardiac Disorders: No Hx Family Respiratory Disorders: No Brother Hx Family Cancer: Yes (unknown) Medications and Allergies Azithromycin [Zithromax] 250 mg PO DAILY 10/28/18 [History] Irbesartan [Avapro] 300 mg PO DAILY 10/28/18 [History] Mirtazapine 7.5 mg PO HS 10/28/18 [History] Verapamil HCl [Verapamil ER] 240 mg PO DAILY 10/28/18 [History] glyBURIDE [GlyBURIDE] 2.5 mg PO BIDWM 10/28/18 [History] Acetaminophen [Tylenol] 325 mg PO BID 10/29/18 [History] Fluticasone Propionate Nasal [Flonase] 1 spray NS DAILY 10/29/18 [History] Allergy/AdvReac Type Severity Reaction Status Date / Time No Known Allergies Allergy Verified 10/28/18 17:18 Review of Systems All Systems review (narrative): The remainder of the systems are negative. Constitutional: no chills, no fatigue, no fever(s) Cardiovascular: dyspnea, no chest pain, no edema Respiratory: cough, no hemoptysis, no wheezing Gastrointestinal: no change in bowel habits, no diarrhea, no nausea, no vomiting Exam - Vital Signs Vital signs: Initial Vital Signs Temp Pulse Resp BP Pulse Ox 97.8 F 97 16 163/66 97 10/28/18 16:39 10/28/18 16:39 10/28/18 16:39 10/28/18 16:39 10/28/18 16:39 Vital Signs - Last 8 Hours Temp Pulse Resp BP Pulse Ox 11/01/18 10:58 97.8 F 72 20 124/67 100 11/01/18 07:47 18 95 11/01/18 07:17 98.1 F 77 20 130/63 95 Intake and Output 10/31/18 11/01/18 11/01/18 23:59 07:59 15:59 Intake Total 270 / 270 0 / 0 Output Total 450 / 450 300 / 300 Balance 270 / 270 -450 / -450 -300 / -300 Intake: IV Fluids 270 / 270 0 / 0 Venofer 400 MG In 0.9 % Sodium 270 / 270 Chloride 250 ML @ 120 mls/hr IVPB ONCE ONE Rx#:[id number] Levaquin Premix 750mg/150 mL 0 / 0 750 mg In 150 ml @ 100 mls/hr IVPB Q48H [facility] Rx#:[id number] Output: Urine 450 / 450 300 / 300 Other: Blood Glucose* 231 166 256 - General Appearance General appearance: well-developed, well-nourished EENT: ATNC, hearing intact, vision intact Neck: supple Respiratory: clear Cardiology: no edema, normal S1, normal S2 Gastrointestinal: normoactive bowel sounds, no tenderness Integumentary: no rash, warm and dry Neurologic: alert and oriented x3 Psychiatric: mood/affect appropriate, cooperative Results - Lab Results 11/01/18 04:23 11/01/18 04:23 Most recent lab results ABG pH 7.30 pH Units (7.32-7.45) L 10/29/18 17:15 ABG pCO2 35 mmHg (35-45) 10/29/18 17:15 ABG pO2 82 mmHg (85-104) L 10/29/18 17:15 ABG HCO3 18 mEq/L (21-27) L 10/29/18 17:15 ABG O2 Saturation 95 % (95-98) 10/29/18 17:15 Calcium 8.7 mg/dL (8.6-10.3) 11/01/18 04:23 Phosphorus 4.5 mg/dL (2.7-4.5) 11/01/18 04:23 Magnesium 2.3 mg/dL (1.6-2.6) 11/01/18 04:23 Urine Creatinine 60 mg/dL 10/29/18 12:24 Urine Sodium 78.9 mEq/L 10/29/18 12:24 Consult Discharge Plan - Plan Referrals: Jammie Schumacher MD [Primary Care Provider] - ([facility] <Cali Jules - Last Filed: 11/04/18 11:21> Date of Encounter: 11/01/18 Assessment and Plan (1) Acute kidney injury superimposed on CKD Current Visit: Yes Status: Acute (2) Pneumonia Current Visit: Yes Status: Acute Qualifiers: Pneumonia type: due to unspecified organism Laterality: right Lung location: lower lobe of lung Qualified Code(s): J18.1 - Lobar pneumonia, unspecified organism (3) UTI (urinary tract infection) Current Visit: Yes Status: Acute Qualifiers: Urinary tract infection type: acute cystitis Hematuria presence: with hematuria Qualified Code(s): N30.01 - Acute cystitis with hematuria (4) Pressure ulcer Current Visit: Yes Status: Acute Qualifiers: Pressure injury location: sacral region Pressure injury stage: stage 2 Qualified Code(s): L89.152 - Pressure ulcer of sacral region, stage 2 (5) Hydronephrosis, right Current Visit: Yes Status: Acute Exam - Vital Signs Vital signs: Initial Vital Signs Temp Pulse Resp BP Pulse Ox 97.8 F 97 16 163/66 97 10/28/18 16:39 10/28/18 16:39 10/28/18 16:39 10/28/18 16:39 10/28/18 16:39 Vital Signs - Last 8 Hours Temp Pulse Resp BP Pulse Ox 11/04/18 07:41 16 98 11/04/18 07:28 97.8 F 70 16 131/62 98 11/04/18 04:16 97.7 F 75 16 111/56 95 Intake and Output 11/03/18 11/04/18 11/04/18 23:59 07:59 15:59 Intake Total 550 / 550 Output Total 300 / 300 150 / 150 Balance 250 / 250 -150 / -150 Intake: IV Fluids 550 / 550 0.9 % Sodium Chloride 250 ML @ 250 / 250 500 mls/hr IVC .Q30M ONE Rx#: [id number] Levaquin Premix 500mg/100mL 500 100 / 100 mg In 100 ml @ 100 mls/hr IVPB Q48H [facility] Rx#:[id number] Output: Urine 150 / 150 Wound Drainage 300 / 300 Right Lower Back 300 / 300 Other: # Voids 1 Blood Glucose* 236 212 Results - Lab Results 11/04/18 08:20 11/04/18 08:20 Most recent lab results ABG pH 7.30 pH Units (7.32-7.45) L 10/29/18 17:15 ABG pCO2 35 mmHg (35-45) 10/29/18 17:15 ABG pO2 82 mmHg (85-104) L 10/29/18 17:15 ABG HCO3 18 mEq/L (21-27) L 10/29/18 17:15 ABG O2 Saturation 95 % (95-98) 10/29/18 17:15 Calcium 8.4 mg/dL (8.6-10.3) L 11/04/18 08:20 Phosphorus 4.1 mg/dL (2.7-4.5) 11/04/18 08:20 Magnesium 2.1 mg/dL (1.6-2.6) 11/04/18 08:20 Urine Creatinine 60 mg/dL 10/29/18 12:24 Urine Sodium 78.9 mEq/L 10/29/18 12:24 - Attending Attestation I examined this patient and my medical decision-making was reviewed with the Resident Physician/[employer] COMMISSIONER. I agree with the documented findings, disposition and treatment plan as described except to the extent set forth below. Pt seen and examined and in brief; 87 y o female with PMH of DM and HTN transferred from [place] ER with SOB and cough. She was diagnosed with PNA with abx started but developed resp. distress deemed CHF with diuresis started. Renal fxn noted with SCr at 1.73 on presentation but worsening during stay. US of kidney showed atrophic kidneys L>R with R mild hydronephrosis noted with UA contaminated. P is a poor historian and not able to tell us about any CKD history. Exam showed elderly with good areation and LE edema bilat. Etiology of MELL unclear with diuretics, sepsis and hydronephrosis. Will repeat UA and recommend CT ab/pelvis. Will hold diuretics for now and encouraged po fluids. Avoid nephrotoxins if possible.
[2018-11-01 12:22] LABS: Uric Acid 14.9 mg/dL (2.3-7.6)
[2018-11-01 16:28] LABS: Bilirubin,Urine Negative (Negative); Blood,Urine Large (Negative); Clarity,Urine Cloudy (Clear); Color,Urine Yellow (Yellow); Glucose,Urine (UA) Normal (Normal); Ketones,Urine Negative (Negative); Leukocyte Esterase,Urine Large (Negative); Nitrite,Urine Negative (Negative); PH,Urine 5.5 pH Units (5.0-8.0); Protein,Urine 30 mg/dL (Neg-Trace); Urobilinogen,Urine Normal (Normal)
[2018-11-01 16:31] LABS: Bacteria,Urine Few per hpf (None-Few); Hyaline Casts,Urine None Seen per lpf (None-Few); RBC,Urine 50-100 per hpf (0-3); Squamous Epithelial Cell,Urine Many per lpf (None-Few); WBC,Urine TNTC per hpf (0-3)
[2018-11-01] MEDS: MethylPREDNISolone 40 MG/ML VIAL IVP SCH ×2 (17:46→22:28)
[2018-11-01] MEDS: Mirtazapine 15 MG TABLET PO SCH (22:20)
[2018-11-01] MEDS: Insulin DETEMIR 100 UNIT/ML X5UNITS SQ SCH (22:30)
[2018-11-01] MEDS ORDERED: diazePAM 10 MG/2 ML SYRINGE IVP ONE (23:56)
[2018-11-02] MEDS: Ipratropium/Albuterol Neb 3 ML IH SCH ×6 (04:34→23:58)
[2018-11-02] MEDS: *HR* Heparin 5,000 UNIT/ML VIAL SQ SCH (05:21)
[2018-11-02] MEDS: Budesonide/Formoterol 160/4.5 1 PUFF INH IH SCH ×2 (07:28→21:01)
[2018-11-02 08:27] LABS: Basophils % 0.2 %; Hematocrit 30.6 % (35.3-44.9); Hemoglobin 9.5 g/dL (11.5-15.4); Immature Granulocytes % 1.9 % (0-4); Lymphocytes # 0.9 K/mcL (0.6-4.6); Lymphocytes % 4.4 %; Mean Corpuscular Hemoglobin 28.9 pg (28.0-33.3); Mean Platelet Volume 11.9 fL (9.4-12.4); Monocytes # 0.6 K/mcL (0.0-1.3); Neutrophils # 18.1 K/mcL (1.6-8.9); Platelet Count 208 K/mcL (140-400); Red Blood Count 3.29 M/mcL (3.82-4.97); Red Cell Distribution Width 15.3 % (11.5-14.5); Segmented Neutrophils % 90.5 %
--- NOTE | 2018-11-02 08:27 | Internal Med Progress Note ---
Hospitalist Progress Note - Encounter Date of Encounter: 11/02/18 Time of Encounter: 08:00 - Subjective Interval History: 87-year-old female with no history of lung disease presented with acute onset of cough and shortness of breath. She was originally treated at outside hospital for pneumonia and acute renal failure. She then was transferred to this ospital for further management. Chest x-ray at the outside hospital showed possible right-sided pneumonia. Respiratory panel showed positive RSV. Patient was treated with IV antibiotics, bronchodilators, and the IV steroids. Yesterday morning, patient was found tachypniec and sob. ABG at that time showed respiratory acidosis with PCO2 at 80, patient was placed on BiPAP and she also received 1 dose of IV Lasix. - Exam Vitals: Temp Pulse Resp BP Pulse Ox 98.0 F 80 18 137/69 96 11/02/18 07:28 11/02/18 07:28 11/02/18 07:31 11/02/18 07:28 11/02/18 07:31 Exam: Constitutional: Vitals as noted. Conversant. mild respiratory Distress. Respiratory : mild accessory muscle use, no rales,. rhonchi heard on RLL. Crackes heard on both base. Cardiovascular : RRR, +S1, +S2. no murmur, gallop, rubs. No chest wall tenderness GI/Abdominal : Soft, Non-tender, Non-distended, normal bowel sounds, soft, no peritoneal signs. no orgenomegaly or mass appreciated. no hernia. Musculoskeletal: no deformity noted. 1+ edema or no cyanosis. warm extremities, pulses palpable and symmetrical in UE/LE. no calf tenderness. Neurological: AO X3, CN II-XII grossly intact, grossly normal motor and sensory exam. Pych: Good insight and judgement. Intact memory. AOx3. - Assessment and Plan (1) Acute respiratory failure Current Visit: Yes Status: Acute Assessment and Plan: Acute hypoxic hypercapnic respiratory failure likely secondary to COPD exacerbation, viral and bacterial pneumonia Pt has diffuse wheezing this am. Will start on IV steroids, continue levaquin, nebs and BIPAP as needed Improving. Oxygen needs decreased this am (2) Pneumonia Current Visit: Yes Status: Acute Assessment and Plan: Continue patient on Levaquin and supportive care for viral pneumonia We will follow up blood cultures and sputum cultures (3) Hydronephrosis Current Visit: Yes Status: Acute Assessment and Plan: Hydronephrosis with MELL on CKD. CT showed significant right sided hydronephrosis with possible malfunctioning ureteral stent may be etiology of MELL. Urology consulted and plan on nephrostomy tube placement by IR (4) HTN (hypertension) Current Visit: Yes Status: Acute Assessment and Plan: Continue with home medications. We will hold ARB (5) Diabetes type 2, uncontrolled Current Visit: Yes Status: Acute Assessment and Plan: Continue Accu-Cheks and sliding scale with ADA diet after passing swallow evaluation (6) Anemia Current Visit: Yes Status: Acute Assessment and Plan: Denies any dark color stool. No obvious acute bleeding. Possibly related to chronic kidney disease Continue ferrous sulfate. Gave one dose of venofer this am due to severe iron deficiency (7) MELL (acute kidney injury) Current Visit: Yes Status: Acute Assessment and Plan: MELL on CKD stage 3. Possibly secondary to poor perfusion from CHF Will diurese gently and monitor creatinine. Patient contiues to have worsening creatinine Will discontinue diuresis and consult renal for further management (8) UTI (urinary tract infection) Current Visit: Yes Status: Acute Assessment and Plan: Continue IV Levaquin, pending urine cx. (9) Pressure ulcer Current Visit: Yes Status: Acute Assessment and Plan: Pt has stage 2 pressure ulcer. Continue dressing per wound care (10) DVT prophylaxis Current Visit: Yes Status: Acute Assessment and Plan: heparin - Time Spent with Patient Total time spent is greater than 50% in coordination of care (as documented) at patient's floor/unit and/or counseling patient: Internal Medicine: Result - Labs CBC & Chem 7: 11/02/18 07:22 11/02/18 07:22 Labs: BMP 11/01/18 04:23 Sodium 142 Potassium 3.9 Chloride 111 H Carbon Dioxide 19 L BUN 84 H Creatinine 2.46 H Glucose 187 H Calcium 8.7 Urine 11/01/18 Range/Units 15:32 Urine Color Yellow (Yellow) Urine Clarity Cloudy A (Clear) Urine pH 5.5 (5.0-8.0) pH Units Ur Specific Breeding 1.020 (1.010-1.025) Urine Protein 30 H (Neg-Trace) mg/dL Urine Glucose (UA) Normal (Normal) mg/dL - ABG Interpretation ABG results: ABG ABG pH 7.30 pH Units (7.32-7.45) L 10/29/18 17:15 ABG pCO2 35 mmHg (35-45) 10/29/18 17:15 ABG pO2 82 mmHg (85-104) L 10/29/18 17:15 ABG O2 Saturation 95 % (95-98) 10/29/18 17:15 - Impressions Impressions Abdomen/Pelvis CT 11/01/18 16:30 IMPRESSION: 1. Moderate right-sided hydronephrosis with ureteral stent in place. The findings suggest possible stent malfunction. Multiple layering calculi are apparent within the calices. 2. Extensive infiltrates at the lung bases, left greater than right, consistent with a multifocal pneumonia. Small right pleural effusion. 3. Stable large left adrenal lesion consistent with an adenoma. 4. Diverticulosis with no acute features. D/ / 11/01/2018 18:47:[address] MD / darryl Interpreting Provider: Noé Way MD Consult Discharge Plan - Plan Referrals: Jammie Schumacher MD [Primary Care Provider] - (Patient is going to [facility]) (1) Acute respiratory failure Qualifiers: Respiratory failure complication: hypercapnia Qualified Code(s): J96.02 - Acute respiratory failure with hypercapnia (2) Pneumonia Qualifiers: Pneumonia type: due to unspecified organism Laterality: right Lung location: lower lobe of lung Qualified Code(s): J18.1 - Lobar pneumonia, unspecified organism (3) Hydronephrosis Qualifiers: Qualified Code(s): N13.30 - Unspecified hydronephrosis (4) HTN (hypertension) Qualifiers: Hypertension type: essential hypertension Qualified Code(s): I10 - Essential (primary) hypertension (5) Diabetes type 2, uncontrolled Qualifiers: Glycemic state: with hyperglycemia Qualified Code(s): E11.65 - Type 2 diabet es mellitus with hyperglycemia (6) Anemia Qualifiers: Chronic kidney disease stage: unspecified stage Qualified Code(s): N18.9 - Chronic kidney disease, unspecified; D63.1 - Anemia in chronic kidney disease (8) UTI (urinary tract infection) Qualifiers: Urinary tract infection type: acute cystitis Hematuria presence: with hematuria Qualified Code(s): N30.01 - Acute cystitis with hematuria (9) Pressure ulcer Qualifiers: Pressure injury location: sacral region Pressure injury stage: stage 2 Qualified Code(s): L89.152 - Pressure ulcer of sacral region, stage 2
[2018-11-02 08:35] LABS: Calcium 9.3 mg/dL (8.6-10.3); Magnesium 2.3 mg/dL (1.6-2.6); Phosphorous 4.1 mg/dL (2.7-4.5); Potassium 3.8 mEq/L (3.5-5.1)
--- NOTE | 2018-11-02 09:09 | Urology - Consult Note ---
<Charlotte Rea N - Last Filed: 11/02/18 10:17> Date of Encounter: 11/02/18 Time of Encounter: 08:40 - Assessment and Plan (1) Hydronephrosis, right Current Visit: Yes Status: Acute Assessment and plan: Patient is an 87-year-old female who presents with moderate right-sided hydronephrosis. CT suggests malfunctioning right ureteral stent. Reviewed CT images with Dr. Marroquin. Ureteral stent appears calcified. We will plan to consult interventional radiology for right nephrostomy tube placement. Patient will be made nothing by mouth. Coagulation studies ordered. We will hold heparin until IR evaluation. (2) MELL (acute kidney injury) Current Visit: Yes Status: Acute Assessment and plan: Patient is an 87-year-old female who presents with acute kidney injury. Renal function continues to decline. Reviewed CT findings with patient. Plan IR evaluation for nephrostomy tube placement. (3) UTI (urinary tract infection) Current Visit: Yes Status: Acute Assessment and plan: Patient is an 87-year-old female who presents with MRSA urinary tract infection. Vital signs are stable and afebrile. White blood cell count remains elevated at 20.0. Patient is receiving IV Levaquin. Qualifiers: Urinary tract infection type: acute cystitis Hematuria presence: with hematuria Qualified Code(s): N30.01 - Acute cystitis with hematuria Urology CN:HPI Consult date: 11/02/18 Reason for consult Urology: Hydronephrosis History of present illness: Patient is an 87-year-old female who presents with moderate right-sided hydronephrosis, indwelling right ureteral stent, decreasing renal function, and MRSA urinary tract infection. Patient underwent a renal ultrasound after primary team noticed downward trend in renal function. Renal ultrasound rev ealed moderate hydronephrosis, and nephrology was consulted. CT scan of abdomen and pelvis was then performed and showed moderate right-sided hydronephrosis with an indwelling, malfunctioning right ureteral stent. Patient has bilateral nonobstructing renal stones. It is of note the patient is a very poor historian, and she is unaccompanied by any family members. Patient is unable to recall her past medical history. Patient is unable to recall why she has an indwelling ureteral stent, although she does provide a history of renal stones. Patient is unsure of which hospital she obtained the stent, but she states she believes it was with an outside urologist in [place]. Patient is unsure of how long she has had the right ureteral stent, but she believes it has been years. Patient states her sister may be able to provide a more accurate history. Currently, patient denies fever, chills, flank pain, gross hematuria, dysuria, incontinence. Patient's emergency contact is listed as her , but he is . Patient is unable to provide contact information for any other family members. I did attempt to phone her home residence, but there was no answer. Past Med Surg Social Fam HX - Past Medical History Medical history: diabetes, hypertension Additional medical history: pacemaker Psychiatric history: no psych history - Past Surgical History Surgical History: pacemaker - Social History Smoking Status: Never smoker Smokeless Tobacco Status: No Alcohol use: none Drug use: none - Family History Brother Hx Family Cancer: Yes (unknown) Father Living Status: Hx Family Cardiac Disorders: No Hx Family Respiratory Disorders: No Mother Hx Family Endocrine Disorder: Yes (diabetes) Son Living Status: Still Living Hx Family Cardiac Disorders: No Hx Family Respiratory Disorders: No Medications and Allergies Azithromycin [Zithromax] 250 mg PO DAILY 10/28/18 [History] Irbesartan [Avapro] 300 mg PO DAILY 10/28/18 [History] RX: Mirtazapine 7.5 mg PO HS 10/28/18 [History] RX: glyBURIDE [GlyBURIDE] 2.5 mg PO BIDWM 10/28/18 [History] Verapamil HCl [Verapamil ER] 240 mg PO DAILY 10/28/18 [History] Acetaminophen [Tylenol] 325 mg PO BID 10/29/18 [History] RX: Fluticasone Propionate Nasal [Flonase] 1 spray NS DAILY 10/29/18 [History] Allergy/AdvReac Type Severity Reaction Status Date / Time No Known Allergies Allergy Verified 10/28/18 17:18 Review of Systems - Constitutional no chills, no fatigue, no fever(s) - EENT Nose, mouth and throat: no dizziness, no headache(s) - Cardiovascular no chest pain, no dyspnea - Respiratory no cough, no dyspnea - Gastrointestinal no abdominal pain, no nausea, no vomiting - Genitourinary Genitourinary: no difficulty urinating, no dysuria, no flank pain, no hematuria, no urinary frequency, no urinary hesitancy, no urinary incontinence, no urinary urgency Menstruation: post menopausal - Musculoskeletal no back pain, no muscle weakness - Integumentary no erythema, no rash - Neurological confusion, no syncope - Psychiatric confusion, no anxiety Exam Initial Vital Signs Temp Pulse Resp BP Pulse Ox 97.8 F 97 16 163/66 97 10/28/18 16:39 10/28/18 16:39 10/28/18 16:39 10/28/18 16:39 10/28/18 16:39 - General physical appearance Present: no distress, no pain - Eyes Present: PERRL, normal ocular movement - ENT Present: normal nares, no hearing loss, no congestion - Neck Present: no masses, trachea midline - Respiratory Present: normal respiratory effort - Abdomen Abdomen: Present: soft, non tender - Integumentary Present: no rash, no abnormal pigmentation - Neurologic Present: normal coordination - Musculoskeletal Present: other (normal posture ) Urology Results - Labs 11/02/18 07:22 11/02/18 07:22 Abnormal lab results WBC 20.0 K/mcL (4.3-11.1) H 11/02/18 07:22 RBC 3.29 M/mcL (3.82-4.97) L 11/02/18 07:22 Hgb 9.5 g/dL (11.5-15.4) L 11/02/18 07:22 Hct 30.6 % (35.3-44.9) L 11/02/18 07:22 MCHC 31.0 g/dL (31.6-35.5) L 11/02/18 07:22 RDW 15.3 % (11.5-14.5) H 11/02/18 07:22 Neutrophils # 18.1 K/mcL (1.6-8.9) H 11/02/18 07:22 ABG pH 7.30 pH Units (7.32-7.45) L 10/29/18 17:15 ABG pO2 82 mmHg (85-104) L 10/29/18 17:15 ABG HCO3 18 mEq/L (21-27) L 10/29/18 17:15 ABG Total CO2 19 mEq/L (20-26) L 10/29/18 17:15 ABG Base Excess -8 mEq/L (-2 to 3) L 10/29/18 17:15 Chloride 109 mEq/L (98-107) H 11/02/18 07:22 Carbon Dioxide 18 mEq/L (23-29) L 11/02/18 07:22 BUN 101 mg/dL (8-23) H 11/02/18 07:22 Creatinine 2.95 mg/dL (0.60-1.20) H 11/02/18 07:22 Est GFR ( Amer) 18 (> 60) L 11/02/18 07:22 Est GFR (Non-Af Amer) 15 (> 60) L 11/02/18 07:22 BUN/Creatinine Ratio 34 (6-26) H 11/02/18 07:22 Glucose 183 mg/dL (70-105) H 11/02/18 07:22 POC Glucose 189 mg/dL (70-99) H 11/01/18 21:22 Hemoglobin A1c 8.1 % (-5.6) H 10/29/18 07:07 Calculated Osmolality 326 (280-300) H 11/02/18 07:22 Uric Acid 14.9 mg/dL (2.3-7.6) H 11/01/18 04:23 Iron < 10 mcg/dL (50-170) L 10/29/18 07:07 B-Natriuretic Peptide 576 pg/mL (Less than 100) H 10/31/18 07:16 Folate 22.2 ng/mL (3.0-16.0) H 10/29/18 07:07 Urine Clarity Cloudy (Clear) A 11/01/18 15:32 Urine Protein 30 mg/dL (Neg-Trace) H 11/01/18 15:32 Urine Blood Large (Negative) H 11/01/18 15:32 Ur Leukocyte Esterase Large (Negative) H 11/01/18 15:32 Urine Microscopic RBC 50-100 per hpf (0-3) H 11/01/18 15:32 Urine Microscopic WBC TNTC per hpf (0-3) H 11/01/18 15:32 Ur Squamous Epith Cells Many per lpf (None-Few) H 11/01/18 15:32 Ur Culture Indicated? NO. (NO) A 10/29/18 12:24 RSV (PCR) DETECTED (Not Detect) A 10/28/18 23:08 Diabetes panel 11/01/18 11/02/18 Range/Units 04:23 07:22 Sodium 142 140 (136-145) mEq/L Potassium 3.9 3.8 (3.5-5.1) mEq/L Chloride 111 H 109 H (98-107) mEq/L Carbon Dioxide 19 L 18 L (23-29) mEq/L BUN 84 H 101 H (8-23) mg/dL Creatinine 2.46 H 2.95 H (0.60-1.20) mg/dL Glucose 187 H 183 H (70-105) mg/dL Calcium 8.7 9.3 (8.6-10.3) mg/dL Calcium panel 11/01/18 11/02/18 Range/Units 04:23 07:22 Calcium 8.7 9.3 (8.6-10.3) mg/dL Phosphorus 4.5 4.1 (2.7-4.5) mg/dL Pituitary panel 11/01/18 11/02/18 Range/Units 04:23 07:22 Sodium 142 140 (136-145) mEq/L Potassium 3.9 3.8 (3.5-5.1) mEq/L Chloride 111 H 109 H (98-107) mEq/L Carbon Dioxide 19 L 18 L (23-29) mEq/L BUN 84 H 101 H (8-23) mg/dL Creatinine 2.46 H 2.95 H (0.60-1.20) mg/dL Glucose 187 H 183 H (70-105) mg/dL Calcium 8.7 9.3 (8.6-10.3) mg/dL Adrenal panel 11/01/18 11/02/18 Range/Units 04:23 07:22 Sodium 142 140 (136-145) mEq/L Potassium 3.9 3.8 (3.5-5.1) mEq/L Chloride 111 H 109 H (98-107) mEq/L Carbon Dioxide 19 L 18 L (23-29) mEq/L BUN 84 H 101 H (8-23) mg/dL Creatinine 2.46 H 2.95 H (0.60-1.20) mg/dL Glucose 187 H 183 H (70-105) mg/dL Calcium 8.7 9.3 (8.6-10.3) mg/dL All other labs normal. - Imaging CT scan - abdomen: report reviewed, image reviewed CT scan - pelvis: report reviewed, image reviewed US - kidney/bladder: report reviewed Consult Discharge Plan - Plan Referrals: Jammie Schumacher MD [Primary Care Provider] - (Patient is going to [facility]) <Tito Marroquin - Last Filed: 11/02/18 18:06> Date of Encounter: 11/02/18 Urology CN:HPI History of present illness: Patient was seen and examined independently. Agree with the plan as written by Charlotte Rea. I was able to discuss the patient's condition with her son and daughter. Patient has had the ureteral stent for 1-1/2 years. She was following with an outside urologist Dr. Simeon. Unsure why the patient did not have her ureteral stent exchange. 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 We will continue to follow along closely. Exam Initial Vital Signs Temp Pulse Resp BP Pulse Ox 97.8 F 97 16 163/66 97 10/28/18 16:39 10/28/18 16:39 10/28/18 16:39 10/28/18 16:39 10/28/18 16:39 Urology Results - Labs 11/02/18 07:22 11/02/18 07:22 Abnormal lab results WBC 20.0 K/mcL (4.3-11.1) H 11/02/18 07:22 RBC 3.29 M/mcL (3.82-4.97) L 11/02/18 07:22 Hgb 9.5 g/dL (11.5-15.4) L 11/02/18 07:22 Hct 30.6 % (35.3-44.9) L 11/02/18 07:22 MCHC 31.0 g/dL (31.6-35.5) L 11/02/18 07:22 RDW 15.3 % (11.5-14.5) H 11/02/18 07:22 Neutrophils # 18.1 K/mcL (1.6-8.9) H 11/02/18 07:22 PT 13.6 Seconds (9.4-12.1) H 11/02/18 12:29 APTT 39.8 Seconds (26.0-36.0) H 11/02/18 12:29 ABG pH 7.30 pH Units (7.32-7.45) L 10/29/18 17:15 ABG pO2 82 mmHg (85-104) L 10/29/18 17:15 ABG HCO3 18 mEq/L (21-27) L 10/29/18 17:15 ABG Total CO2 19 mEq/L (20-26) L 10/29/18 17:15 ABG Base Excess -8 mEq/L (-2 to 3) L 10/29/18 17:15 Chloride 109 mEq/L (98-107) H 11/02/18 07:22 Carbon Dioxide 18 mEq/L (23-29) L 11/02/18 07:22 BUN 101 mg/dL (8-23) H 11/02/18 07:22 Creatinine 2.95 mg/dL (0.60-1.20) H 11/02/18 07:22 Est GFR ( Amer) 18 (> 60) L 11/02/18 07:22 Est GFR (Non-Af Amer) 15 (> 60) L 11/02/18 07:22 BUN/Creatinine Ratio 34 (6-26) H 11/02/18 07:22 Glucose 183 mg/dL (70-105) H 11/02/18 07:22 POC Glucose 189 mg/dL (70-99) H 11/01/18 21:22 Hemoglobin A1c 8.1 % (-5.6) H 10/29/18 07:07 Calculated Osmolality 326 (280-300) H 11/02/18 07:22 Uric Acid 14.9 mg/dL (2.3-7.6) H 11/01/18 04:23 Iron < 10 mcg/dL (50-170) L 10/29/18 07:07 B-Natriuretic Peptide 576 pg/mL (Less than 100) H 10/31/18 07:16 Folate 22.2 ng/mL (3.0-16.0) H 10/29/18 07:07 Urine Clarity Cloudy (Clear) A 11/01/18 15:32 Urine Protein 30 mg/dL (Neg-Trace) H 11/01/18 15:32 Urine Blood Large (Negative) H 11/01/18 15:32 Ur Leukocyte Esterase Large (Negative) H 11/01/18 15:32 Urine Microscopic RBC 50-100 per hpf (0-3) H 11/01/18 15:32 Urine Microscopic WBC TNTC per hpf (0-3) H 11/01/18 15:32 Ur Squamous Epith Cells Many per lpf (None-Few) H 11/01/18 15:32 Ur Culture Indicated? NO. (NO) A 10/29/18 12:24 RSV (PCR) DETECTED (Not Detect) A 10/28/18 23:08 Diabetes panel 11/02/18 Range/Units 07:22 Sodium 140 (136-145) mEq/L Potassium 3.8 (3.5-5.1) mEq/L Chloride 109 H (98-107) mEq/L Carbon Dioxide 18 L (23-29) mEq/L BUN 101 H (8-23) mg/dL Creatinine 2.95 H (0.60-1.20) mg/dL Glucose 183 H (70-105) mg/dL Calcium 9.3 (8.6-10.3) mg/dL Calcium panel 11/02/18 Range/Units 07:22 Calcium 9.3 (8.6-10.3) mg/dL Phosphorus 4.1 (2.7-4.5) mg/dL Pituitary panel 11/02/18 Range/Units 07:22 Sodium 140 (136-145) mEq/L Potassium 3.8 (3.5-5.1) mEq/L Chloride 109 H (98-107) mEq/L Carbon Dioxide 18 L (23-29) mEq/L BUN 101 H (8-23) mg/dL Creatinine 2.95 H (0.60-1.20) mg/dL Glucose 183 H (70-105) mg/dL Calcium 9.3 (8.6-10.3) mg/dL Adrenal panel 11/02/18 Range/Units 07:22 Sodium 140 (136-145) mEq/L Potassium 3.8 (3.5-5.1) mEq/L Chloride 109 H (98-107) mEq/L Carbon Dioxide 18 L (23-29) mEq/L BUN 101 H (8-23) mg/dL Creatinine 2.95 H (0.60-1.20) mg/dL Glucose 183 H (70-105) mg/dL Calcium 9.3 (8.6-10.3) mg/dL All other labs normal.
[2018-11-02] MEDS: Insulin LISPRO 300 UNITS/3 ML VIAL SQ SCH ×4 (09:23→20:34)
[2018-11-02] MEDS: MethylPREDNISolone 40 MG/ML VIAL IVP SCH (09:23)
[2018-11-02] MEDS: Verapamil ER (24 HR) 240 MG TABLET.ER PO SCH (09:23)
[2018-11-02] MEDS: Doxycycline 100 MG CAPSULE PO SCH ×2 (12:19→20:28)
[2018-11-02 12:44] LABS: INR 1.2; Prothrombin Time 13.6 Seconds (9.4-12.1)
[2018-11-02 12:47] LABS: Activated Partial Thrombo Time 39.8 Seconds (26.0-36.0)
[2018-11-02] MEDS ORDERED: 0.9 % Sodium Chloride 500 ML ONE ×2 (12:59→13:24)
[2018-11-02] MEDS ORDERED: *HR* FentaNYL (PF) 100 MCG/2 ML VIAL IVP ONE (13:17)
[2018-11-02] MEDS ORDERED: CeFAZolin Premix DUPLEX 2,000 MG/50 ML BAG IVPB ONE (13:17)
[2018-11-02] MEDS ORDERED: Isovue-300 50 ML VIAL IVP ONE (13:55)
--- NOTE | 2018-11-02 14:20 | IR Procedure Note ---
Date of procedure: 11/02/18 Consent Obtained: Written consent Timeout: Correct patient and procedure verified, Correct site verified, Time out performed, Skin prep completed Local anesthetic: Lidocaine 1% Indications: right hydronephrosis, occluded ureteral stent Procedure Performed: right nephrostomy Was there an volunteer assistant present: No Site/Technique: right kidney mid pole posterior Results/Findings: hydronephrosis, no transit of contrast into ureter or stent Estimated blood loss (cc): 0 Complications: None; Tolerated procedure well Post Procedure Treatment Plan: drain to bag Specimen: NA
[2018-11-02] MEDS: predniSONE 20 MG TABLET PO SCH (16:16)
--- NOTE | 2018-11-02 18:03 | Nephrology Progress Note ---
Date of Encounter: 11/02/18 Time of Encounter: 15:00 - Assessment and Plan (1) Acute kidney injury superimposed on CKD Current Visit: Yes Status: Acute Elevated Scr in the setting of likely sepsis, obstructive uropathy and diuretics Scr worse today but s/p nephrostomtomy today should hopefully improve Continue to hold diuretics Continue to avoid nephrotoxins if possible Baseline unclear No acute indication for EDGE CUTTER just yet Uric acid elevated suggestive of pre-renal state, if renal fxn worsens again tomorrow, might need gentle fluids CPK mildly elevated, will monitor Urine eosinophils negative (2) Pneumonia Current Visit: Yes Status: Acute Per primary team. CT consistent multifocal PNA and RSV positive Qualifiers: Pneumonia type: due to unspecified organism Laterality: right Lung location: lower lobe of lung Qualified Code(s): J18.1 - Lobar pneumonia, unspecified organism (3) UTI (urinary tract infection) Current Visit: Yes Status: Acute MRSA positive culture noted, abx per primary team Qualifiers: Urinary tract infection type: acute cystitis Hematuria presence: with hematuria Qualified Code(s): N30.01 - Acute cystitis with hematuria (4) Hydronephrosis, right Current Visit: Yes Status: Acute s/p nephrostomy tube, urology following (5) Pressure ulcer Current Visit: Yes Status: Acute Qualifiers: Pressure injury location: sacral region Pressure injury stage: stage 2 Qualified Code(s): L89.152 - Pressure ulcer of sacral region, stage 2 Subjective Interval history: Pt seen and examined with interim events noted; s/p urology consulted after CT showed R hydronephrosis with calcified ureteral stent now s/p nephrostomy by IR Objective - Vital Signs Vital signs: Vital Signs Temp Pulse Resp BP Pulse Ox 11/02/18 16:26 18 100 11/02/18 16:02 97.4 F L 73 17 129/62 100 11/02/18 14:21 97.6 F 73 17 144/57 100 11/02/18 13:41 71 148/58 100 11/02/18 13:36 71 148/55 100 11/02/18 13:29 72 152/69 98 11/02/18 11:16 18 100 11/02/18 11:15 97.6 F 76 17 139/60 100 11/02/18 07:31 18 96 11/02/18 07:28 98.0 F 80 16 137/69 96 11/02/18 04:35 97.5 F L 86 16 150/69 99 11/02/18 00:40 98 F 99 16 140/53 96 11/01/18 23:40 16 100 11/01/18 21:26 98.2 F 76 16 129/51 97 11/01/18 20:12 16 97 Intake and Output 11/02/18 11/02/18 11/02/18 07:59 15:59 23:59 Intake Total 120 / 120 Output Total 115 / 115 Balance 120 / 120 -115 / -115 Intake: Oral 120 / 120 Output: Wound Drainage 115 / 115 Right Lower Back 115 / 115 Other: Meal Breakfast Percent of Meal Consumed 70% # Voids 1 # Urine Diapers 1 Blood Glucose* 195 239 209 - General Appearance General appearance: Present: well-developed, well-nourished EENT: Present: ATNC, mucous membranes moist Neck: Present: no JVD, supple Additional Comments: decreased BS bases bilat Cardiology: Present: edema (LE bilat), normal S1, normal S2 Gastrointestinal: Present: no tenderness, no guarding Integumentary: Present: warm and dry Neurologic: Present: no focal deficit Musculoskeletal: Present: no deformities Psychiatric: Present: mood/affect appropriate - Lab 11/04/18 08:20 11/04/18 08:20 Most recent lab results ABG pH 7.30 pH Units (7.32-7.45) L 10/29/18 17:15 ABG pCO2 35 mmHg (35-45) 10/29/18 17:15 ABG pO2 82 mmHg (85-104) L 10/29/18 17:15 ABG HCO3 18 mEq/L (21-27) L 10/29/18 17:15 ABG O2 Saturation 95 % (95-98) 10/29/18 17:15 Calcium 9.3 mg/dL (8.6-10.3) 11/02/18 07:22 Phosphorus 4.1 mg/dL (2.7-4.5) 11/02/18 07:22 Magnesium 2.3 mg/dL (1.6-2.6) 11/02/18 07:22 Urine Creatinine 60 mg/dL 10/29/18 12:24 Urine Sodium 78.9 mEq/L 10/29/18 12:24 Consult Discharge Plan - Plan Referrals: Jammie Schumacher MD [Primary Care Provider] - ([facility] is going [facility])
[2018-11-02] MEDS: Mirtazapine 15 MG TABLET PO SCH (20:28)
[2018-11-02] MEDS: Insulin DETEMIR 100 UNIT/ML X5UNITS SQ SCH (20:35)
[2018-11-03] MEDS: Ipratropium/Albuterol Neb 3 ML IH SCH ×6 (04:35→20:23)
[2018-11-03] MEDS ORDERED: Levofloxacin 500 MG/100 ML 500 MG/100 ML BAG IVPB SCH (07:00)
[2018-11-03] MEDS: Budesonide/Formoterol 160/4.5 1 PUFF INH IH SCH ×2 (07:44→20:23)
[2018-11-03 07:54] LABS: Basophils % 0.2 %; Immature Granulocytes % 3.1 % (0-4); Lymphocytes % 4.8 %; Mean Corpuscular HGB Conc 32.1 g/dL (31.6-35.5); Mean Corpuscular Hemoglobin 28.6 pg (28.0-33.3); Mean Corpuscular Volume 88.9 fL (83.0-100.0); Mean Platelet Volume 11.9 fL (9.4-12.4); Monocytes # 0.7 K/mcL (0.0-1.3); Monocytes % 3.5 %; Platelet Count 210 K/mcL (140-400); Red Blood Count 3.15 M/mcL (3.82-4.97); Red Cell Distribution Width 15.4 % (11.5-14.5); Segmented Neutrophils % 88.4 %
[2018-11-03] MEDS: predniSONE 20 MG TABLET PO SCH (07:58)
[2018-11-03] MEDS: Doxycycline 100 MG CAPSULE PO SCH ×2 (07:58→19:55)
[2018-11-03] MEDS: Verapamil ER (24 HR) 240 MG TABLET.ER PO SCH (07:58)
[2018-11-03 08:00] LABS: Calcium 9.1 mg/dL (8.6-10.3); Magnesium 2.2 mg/dL (1.6-2.6); Phosphorous 4.1 mg/dL (2.7-4.5); Potassium 3.8 mEq/L (3.5-5.1)
[2018-11-03] MEDS: Insulin LISPRO 300 UNITS/3 ML VIAL SQ SCH ×4 (08:00→22:51)
--- NOTE | 2018-11-03 08:31 | Urology Progress Note ---
Date of Encounter: 11/03/18 Time of Encounter: 08:29 - Assessment and Plan (1) Acute kidney injury superimposed on CKD Current Visit: Yes Status: Acute Assessment and plan: Rising creatinine. Patient has had good output from nephrostomy tube. Nephrology on board. We will await their recommendations. (2) Hydronephrosis, right Current Visit: Yes Status: Acute Assessment and plan: Status post right nephrostomy tube yesterday. Good output. (3) UTI (urinary tract infection) Current Visit: Yes Status: Acute Assessment and plan: Recommend to continue with broad-spectrum antibiotics until cultures return. Qualifiers: Urinary tract infection type: acute cystitis Hematuria presence: with hematuria Qualified Code(s): N30.01 - Acute cystitis with hematuria Progress Note Narrative: Patient seen this morning. Status post right nephrostomy tube placement yesterday secondary to severe right-sided hydronephrosis with malfunctioning right ureteral stent. Patient feels better this morning. Her serum creatinine though has worsened. Patient's white count is stable at 20,000. Cultures all pending at this time Objective Initial Vital Signs Temp Pulse Resp BP Pulse Ox 97.8 F 97 16 163/66 97 10/28/18 16:39 10/28/18 16:39 10/28/18 16:39 10/28/18 16:39 10/28/18 16:39 - General physical appearance Present: well developed, well nourished - Abdomen Present: soft. Absent: tender - Additional Exam Back: Right nephrostomy tube in good position with clear urine draining - Labs 11/03/18 07:10 11/03/18 07:10 Diabetes panel 11/02/18 11/03/18 Range/Units 07:22 07:10 Sodium 140 140 (136-145) mEq/L Potassium 3.8 3.8 (3.5-5.1) mEq/L Chloride 109 H 109 H (98-107) mEq/L Carbon Dioxide 18 L 17 L (23-29) mEq/L BUN 101 H 114 H (8-23) mg/dL Creatinine 2.95 H 3.37 H (0.60-1.20) mg/dL Glucose 183 H 228 H (70-105) mg/dL Calcium 9.3 9.1 (8.6-10.3) mg/dL Calcium panel 11/02/18 11/03/18 Range/Units 07:22 07:10 Calcium 9.3 9.1 (8.6-10.3) mg/dL Phosphorus 4.1 4.1 (2.7-4.5) mg/dL Pituitary panel 11/02/18 11/03/18 Range/Units 07:22 07:10 Sodium 140 140 (136-145) mEq/L Potassium 3.8 3.8 (3.5-5.1) mEq/L Chloride 109 H 109 H (98-107) mEq/L Carbon Dioxide 18 L 17 L (23-29) mEq/L BUN 101 H 114 H (8-23) mg/dL Creatinine 2.95 H 3.37 H (0.60-1.20) mg/dL Glucose 183 H 228 H (70-105) mg/dL Calcium 9.3 9.1 (8.6-10.3) mg/dL Adrenal panel 11/02/18 11/03/18 Range/Units 07:22 07:10 Sodium 140 140 (136-145) mEq/L Potassium 3.8 3.8 (3.5-5.1) mEq/L Chloride 109 H 109 H (98-107) mEq/L Carbon Dioxide 18 L 17 L (23-29) mEq/L BUN 101 H 114 H (8-23) mg/dL Creatinine 2.95 H 3.37 H (0.60-1.20) mg/dL Glucose 183 H 228 H (70-105) mg/dL Calcium 9.3 9.1 (8.6-10.3) mg/dL Consult Discharge Plan - Plan Referrals: Jammie Schumacher MD [Primary Care Provider] - (Patient is going to [facility])
[2018-11-03] MEDS ORDERED: 0.9 % Sodium Chloride 250 ML IVC ONE (08:35)
--- NOTE | 2018-11-03 08:42 | Internal Med Progress Note ---
Hospitalist Progress Note - Encounter Date of Encounter: 11/03/18 Time of Encounter: 08:40 - Subjective Interval History: 87-year-old female with no history of lung disease presented with acute onset of cough and shortness of breath. She was originally treated at outside hospital for pneumonia and acute renal failure. She then was transferred to this [facility] for further management. Chest x-ray at the outside hospital showed possible right-sided pneumonia. Respiratory panel showed positive RSV. Patient was treated with IV antibiotics, bronchodilators, and the IV steroids. Yesterday morning, patient was found tachypniec and sob. ABG at that time showed respiratory acidosis with PCO2 at 80, patient was placed on BiPAP and she also received 1 dose of IV Lasix. - Exam Vitals: Temp Pulse Resp BP Pulse Ox 97.8 F 83 16 148/61 97 11/03/18 07:23 11/03/18 07:23 11/03/18 07:23 11/03/18 07:23 11/03/18 07:23 Exam: Constitutional: Vitals as noted. Conversant. mild respiratory Distress. Respiratory : mild accessory muscle use, no rales,. rhonchi heard on RLL. Crackes heard on both base. Cardiovascular : RRR, +S1, +S2. no murmur, gallop, rubs. No chest wall tenderness GI/Abdominal : Soft, Non-tender, Non-distended, normal bowel sounds, soft, no peritoneal signs. no orgenomegaly or mass appreciated. no hernia. Musculoskeletal: no deformity noted. 1+ edema or no cyanosis. warm extremities, pulses palpable and symmetrical in UE/LE. no calf tenderness. Neurological: AO X3, CN II-XII grossly intact, grossly normal motor and sensory exam. Pych: Good insight and judgement. Intact memory. AOx3. - Assessment and Plan (1) MELL (acute kidney injury) Current Visit: Yes Status: Acute Assessment and Plan: MELL on CKD stage 3. Likely secondary to hydronephrosis with occluded stent seen on stent Had nephrostomy tube placed on 11/02 and has good output. Creatinine continues to trend up Will hydrate gently with a 250 cc bolus in light of CHF and monitor creatinine Renal following and appreciate recs (2) Hydronephrosis Current Visit: Yes Status: Acute Assessment and Plan: Hydronephrosis with MELL on CKD. CT showed significant right sided hydronephrosis with possible malfunctioning ureteral stent s/p nephrostomy tube placement. gentle hydration (3) UTI (urinary tract infection) Current Visit: Yes Status: Acute Assessment and Plan: Urine cultures growing MRSA. Continue doxycycline (4) Acute respiratory failure Current Visit: Yes Status: Acute Assessment and Plan: Acute hypoxic hypercapnic respiratory failure likely secondary to COPD exacerbation, viral and bacterial pneumonia Pt has diffuse wheezing this am. Will start on IV steroids, continue levaquin, nebs and BIPAP as needed Improved. Wean off steroids (5) Pneumonia Current Visit: Yes Status: Acute Assessment and Plan: Continue patient on Levaquin and supportive care for viral pneumonia We will follow up blood cultures and sputum cultures (6) HTN (hypertension) Current Visit: Yes Status: Acute Assessment and Plan: Continue with home medications. We will hold ARB (7) Diabetes type 2, uncontrolled Current Visit: Yes Status: Acute Assessment and Plan: Continue Accu-Cheks and sliding scale with ADA diet after passing swallow evaluation (8) Anemia Current Visit: Yes Status: Acute Assessment and Plan: Denies any dark color stool. No obvious acute bleeding. Possibly related to chronic kidney disease Continue ferrous sulfate. Gave one dose of venofer this am due to severe iron deficiency (9) Pressure ulcer Current Visit: Yes Status: Acute Assessment and Plan: Pt has stage 2 pressure ulcer. Continue dressing per wound care (10) DVT prophylaxis Current Visit: Yes Status: Acute Assessment and Plan: heparin - Time Spent with Patient Total time spent is greater than 50% in coordination of care (as documented) at patient's floor/unit and/or counseling patient: Internal Medicine: Result - Labs CBC & Chem 7: 11/03/18 07:10 11/03/18 07:10 Labs: Short CBC 11/03/18 Range/Units 07:10 WBC 20.4 H (4.3-11.1) K/mcL Hgb 9.0 L (11.5-15.4) g/dL Hct 28.0 L (35.3-44.9) % Plt Count 210 (140-400) K/mcL Neutrophils # 18.0 H (1.6-8.9) K/mcL BMP 11/03/18 07:10 Sodium 140 Potassium 3.8 Chloride 109 H Carbon Dioxide 17 L BUN 114 H Creatinine 3.37 H Glucose 228 H Calcium 9.1 - ABG Interpretation ABG results: ABG ABG pH 7.30 pH Units (7.32-7.45) L 10/29/18 17:15 ABG pCO2 35 mmHg (35-45) 10/29/18 17:15 ABG pO2 82 mmHg (85-104) L 10/29/18 17:15 ABG O2 Saturation 95 % (95-98) 10/29/18 17:15 PT/INR, D-dimer PT 13.6 Seconds (9.4-12.1) H 11/02/18 12:29 - Impressions Impressions Abdomen/Pelvis CT 11/01/18 16:30 IMPRESSION: 1. Moderate right-sided hydronephrosis with ureteral stent in place. The findings suggest possible stent malfunction. Multiple layering calculi are apparent within the calices. 2. Extensive infiltrates at the lung bases, left greater than right, consistent with a multifocal pneumonia. Small right pleural effusion. 3. Stable large left adrenal lesion consistent with an adenoma. 4. Diverticulosis with no acute features. D/ / 11/01/2018 18:47:[address] MD / darryl Interpreting Provider: Noé Way MD Guidance Ultrasound 11/02/18 00:00 IMPRESSION: Successful 10 Cypriot right percutaneous nephrostomy tube placement as described above. D/ / Teddy Davis / Teddy Davis Interpreting Provider: Teddy Davis Nephrostomy 11/02/18 00:00 IMPRESSION: Successful 10 Cypriot right percutaneous nephrostomy tube placement as described above. D/ / Teddy Davis / Teddy Davis Interpreting Provider: Teddy Davis Consult Discharge Plan - Plan Referrals: Jammie Schumacher MD [Primary Care Provider] - (Patient is going to [facility]) (2) Hydronephrosis Qualifiers: Qualified Code(s): N13.30 - Unspecified hydronephrosis (3) UTI (urinary tract infection) Qualifiers: Urinary tract infection type: acute cystitis Hematuria presence: with hematuria Qualified Code(s): N30.01 - Acute cystitis with hematuria (4) Acute respiratory failure Qualifiers: Respiratory failure complication: hypercapnia Qualified Code(s): J96.02 - Acute respiratory failure with hypercapnia (5) Pneumonia Qualifiers: Pneumonia type: due to unspecified organism Laterality: right Lung location: lower lobe of lung Qualified Code(s): J18.1 - Lobar pneumonia, unspecified organism (6) HTN (hypertension) Qualifiers: Hypertension type: essential hypertension Qualified Code(s): I10 - Essential (primary) hypertension (7) Diabetes type 2, uncontrolled Qualifiers: Glycemic state: with hyperglycemia Qualified Code(s): E11.65 - Type 2 diabetes mellitus with hyperglycemia (8) Anemia Qualifiers: Chronic kidney disease stage: unspecified stage Qualified Code(s): N18.9 - Chronic kidney disease, unspecified; D63.1 - Anemia in chronic kidney disease (9) Pressure ulcer Qualifiers: Pressure injury location: sacral region Pressure injury stage: stage 2 Qualified Code(s): L89.152 - Pressure ulcer of sacral region, stage 2
--- NOTE | 2018-11-03 10:53 | Nephrology Progress Note ---
Date of Encounter: 11/03/18 Time of Encounter: 12:00 - Assessment and Plan (1) Acute kidney injury superimposed on CKD Current Visit: Yes Status: Acute SCr worsening at 3.37, GFR 13 with BUN 114 likely multifactorial with pre-renal state after diuretics and sepsis, obstruction relieved with nephrotstomy tube. Steroids likely also contributing to elevated BUN. There is an underlying CKD given atrophic kidneys but pt denies any nephrology visits only urology with Dr Jeter but does not recall when ureteral stent was placed Needs gentle fluids today at least a liter Continue to avoid nephrotoxins if possible UOP not impressive Discussed goals of care with pt and family. No acute indication for [employer] just yet but might need this stay Uric acid very elevated consistent with pre-renal state, will recheck along with the mildly elevated CPK (2) Pneumonia Current Visit: Yes Status: Acute Per primary team. CT consistent multifocal PNA and RSV positive Qualifiers: Pneumonia type: due to unspecified organism Laterality: right Lung location: lower lobe of lung Qualified Code(s): J18.1 - Lobar pneumonia, unspecified organism (3) UTI (urinary tract infection) Current Visit: Yes Status: Acute MRSA positive culture noted, abx per primary team Qualifiers: Urinary tract infection type: acute cystitis Hematuria presence: with hematuria Qualified Code(s): N30.01 - Acute cystitis with hematuria (4) Hydronephrosis, right Current Visit: Yes Status: Acute s/p nephrostomy tube, urology following (5) Pressure ulcer Current Visit: Yes Status: Acute Per wound care. Qualifiers: Pressure injury location: sacral region Pressure injury stage: stage 2 Qualified Code(s): L89.152 - Pressure ulcer of sacral region, stage 2 Subjective Interval history: Pt seen and examined s/p R nephrostomy with some UOP from nephrostomy tube. Pt reports feeling better, found sitting in chair. Family (son and daughter)came in during from exam with pt, discussed at length current worsening renal fxn and goals of care including dialysis Objective - Vital Signs Vital signs: Vital Signs Temp Pulse Resp BP Pulse Ox 11/03/18 07:23 97.8 F 83 16 148/61 97 11/03/18 04:35 98.9 F 86 16 140/71 96 11/02/18 23:58 16 97 11/02/18 23:56 97.5 F L 76 17 138/56 96 01/04/19 21:02 16 100 11/02/18 20:30 97.6 F 73 16 141/56 92 11/02/18 16:26 18 100 11/02/18 16:02 97.4 F L 73 17 129/62 100 11/02/18 14:21 97.6 F 73 17 144/57 100 11/02/18 13:41 71 148/58 100 11/02/18 13:36 71 148/55 100 11/02/18 13:29 72 152/69 98 11/02/18 11:16 18 100 11/02/18 11:15 97.6 F 76 17 139/60 100 Intake and Output 11/02/18 11/03/18 11/03/18 23:59 07:59 15:59 Intake Total 240 / 240 Output Total 240 / 240 250 / 250 Balance -240 / -240 -250 / -250 240 / 240 Intake: Oral 240 / 240 Output: Right Nephrostomy 125 / 125 Wound Drainage 115 / 115 250 / 250 Right Lower Back 115 / 115 250 / 250 Other: Meal Breakfast Percent of Meal Consumed 100% # Voids 2 Weight 61.6 kg Blood Glucose* 314 214 - General Appearance General appearance: Present: well-developed, well-nourished EENT: Present: ATNC, mucous membranes dry Neck: Present: no JVD, supple Additional Comments: good areation but decreased BS bases bilat Cardiology: Present: edema (LE bilat), normal S1, normal S2 Gastrointestinal: Present: no tenderness, no guarding Integumentary: Present: warm and dry Neurologic: Present: no focal deficit Musculoskeletal: Present: no deformities Psychiatric: Present: mood/affect appropriate - Lab 11/04/18 08:20 11/04/18 08:20 Most recent lab results ABG pH 7.30 pH Units (7.32-7.45) L 10/29/18 17:15 ABG pCO2 35 mmHg (35-45) 10/29/18 17:15 ABG pO2 82 mmHg (85-104) L 10/29/18 17:15 ABG HCO3 18 mEq/L (21-27) L 10/29/18 17:15 ABG O2 Saturation 95 % (95-98) 10/29/18 17:15 Calcium 9.1 mg/dL (8.6-10.3) 11/03/18 07:10 Phosphorus 4.1 mg/dL (2.7-4.5) 11/03/18 07:10 Magnesium 2.2 mg/dL (1.6-2.6) 11/03/18 07:10 Urine Creatinine 60 mg/dL 10/29/18 12:24 Urine Sodium 78.9 mEq/L 10/29/18 12:24 Consult Discharge Plan - Plan Referrals: Jammie Schumacher MD [Primary Care Provider] - ([facility] is going to [facility])
[2018-11-03 13:13] LABS: Uric Acid 17.1 mg/dL (2.3-7.6)
[2018-11-03] MEDS ORDERED: 0.9 % Sodium Chloride 1,000 ML IVC SCH (13:15)
[2018-11-03] MEDS ORDERED: Haloperidol Lactate 5 MG/ML VIAL IVP PRN (18:54)
[2018-11-03] MEDS: Mirtazapine 15 MG TABLET PO SCH (19:55)
[2018-11-03] MEDS: Insulin DETEMIR 100 UNIT/ML X5UNITS SQ SCH (22:52)
[2018-11-04] MEDS: Ipratropium/Albuterol Neb 3 ML IH SCH ×4 (00:31→07:41)
[2018-11-04] MEDS ORDERED: diazePAM 10 MG/2 ML SYRINGE IVP ONE (00:53)
[2018-11-04] MEDS: Budesonide/Formoterol 160/4.5 1 PUFF INH IH SCH ×2 (07:41→22:39)
[2018-11-04 08:34] LABS: Basophils # 0.1 K/mcL (0.0-0.2); Basophils % 0.3 %; Hematocrit 29.2 % (35.3-44.9); Hemoglobin 8.8 g/dL (11.5-15.4); Immature Granulocytes % 4.6 % (0-4); Lymphocytes # 1.2 K/mcL (0.6-4.6); Mean Corpuscular HGB Conc 30.1 g/dL (31.6-35.5); Mean Corpuscular Hemoglobin 28.3 pg (28.0-33.3); Mean Corpuscular Volume 93.9 fL (83.0-100.0); Mean Platelet Volume 11.8 fL (9.4-12.4); Monocytes # 1.5 K/mcL (0.0-1.3); Monocytes % 6.2 %; Neutrophils # 20.8 K/mcL (1.6-8.9); Nucleated Red Blood Cells 0.1 /100 WBC (0); Platelet Count 165 K/mcL (140-400); Red Blood Count 3.11 M/mcL (3.82-4.97); Red Cell Distribution Width 15.6 % (11.5-14.5); Segmented Neutrophils % 83.9 %
[2018-11-04 08:56] LABS: Calcium 8.4 mg/dL (8.6-10.3); Magnesium 2.1 mg/dL (1.6-2.6); Phosphorous 4.1 mg/dL (2.7-4.5); Potassium 3.8 mEq/L (3.5-5.1)
--- NOTE | 2018-11-04 09:25 | Urology Progress Note ---
Date of Encounter: 11/04/18 Time of Encounter: 09:24 - Assessment and Plan (1) Acute kidney injury superimposed on CKD Current Visit: Yes Status: Acute Assessment and plan: Serum creatinine slightly improved. Continue with daily monitoring (2) Hydronephrosis, right Current Visit: Yes Status: Acute Assessment and plan: Right nephrostomy tube putting out good urine. This will need to remain in place. (3) UTI (urinary tract infection) Current Visit: Yes Status: Acute Assessment and plan: Continue with current coverage. Patient will need at least 2-3 weeks of total course. We will continue to follow along closely. Qualifiers: Urinary tract infection type: acute cystitis Hematuria presence: with hematuria Qualified Code(s): N30.01 - Acute cystitis with hematuria Progress Note Narrative: Patient seen this morning. Patient appears in more distress this morning than yesterday. According to nursing staff the patient did receive some medication last evening secondary to some agitation. Patient's serum creatinine has improved slightly overnight. She has had increased urine output from her right nephrostomy tube. WBC count is going up the patient is on 40 mg of prednisone. Objective Initial Vital Signs Temp Pulse Resp BP Pulse Ox 97.8 F 97 16 163/66 97 10/28/18 16:39 10/28/18 16:39 10/28/18 16:39 10/28/18 16:39 10/28/18 16:39 - General physical appearance Present: moderate distress - Respiratory Present: normal expansion, normal respiratory effort - Abdomen Present: soft. Absent: tender - Genitourinary Urine Appearance: Present: Clear - Labs 11/04/18 08:20 11/04/18 08:20 Diabetes panel 11/04/18 Range/Units 08:20 Sodium 143 (136-145) mEq/L Potassium 3.8 (3.5-5.1) mEq/L Chloride 114 H (98-107) mEq/L Carbon Dioxide 16 L (23-29) mEq/L BUN 108 H (8-23) mg/dL Creatinine 2.92 H (0.60-1.20) mg/dL Glucose 207 H (70-105) mg/dL Calcium 8.4 L (8.6-10.3) mg/dL Calcium panel 11/04/18 Range/Units 08:20 Calcium 8.4 L (8.6-10.3) mg/dL Phosphorus 4.1 (2.7-4.5) mg/dL Pituitary panel 11/04/18 Range/Units 08:20 Sodium 143 (136-145) mEq/L Potassium 3.8 (3.5-5.1) mEq/L Chloride 114 H (98-107) mEq/L Carbon Dioxide 16 L (23-29) mEq/L BUN 108 H (8-23) mg/dL Creatinine 2.92 H (0.60-1.20) mg/dL Glucose 207 H (70-105) mg/dL Calcium 8.4 L (8.6-10.3) mg/dL Adrenal panel 11/04/18 Range/Units 08:20 Sodium 143 (136-145) mEq/L Potassium 3.8 (3.5-5.1) mEq/L Chloride 114 H (98-107) mEq/L Carbon Dioxide 16 L (23-29) mEq/L BUN 108 H (8-23) mg/dL Creatinine 2.92 H (0.60-1.20) mg/dL Glucose 207 H (70-105) mg/dL Calcium 8.4 L (8.6-10.3) mg/dL Consult Discharge Plan - Plan Referrals: Jammie Schumacher MD [Primary Care Provider] - (Patient is going to [facility])
[2018-11-04] MEDS ORDERED: Furosemide 20 MG/2 ML VIAL IVP ONE (10:24)
[2018-11-04] MEDS: predniSONE 20 MG TABLET PO SCH (10:40)
[2018-11-04] MEDS: Doxycycline 100 MG CAPSULE PO SCH (10:40)
[2018-11-04] MEDS: Insulin LISPRO 300 UNITS/3 ML VIAL SQ SCH ×4 (10:42→20:40)
[2018-11-04] MEDS: Verapamil ER (24 HR) 240 MG TABLET.ER PO SCH (11:18)
[2018-11-04] MEDS ORDERED: Piperacillin/Tazobactam 3.375 GM in 0.9 % Sodium Chloride Mini Bag 100 ML IVPB SCH ×2 (12:37→16:00)
--- NOTE | 2018-11-04 14:13 | Internal Med Progress Note ---
Hospitalist Progress Note - Encounter Date of Encounter: 11/04/18 Time of Encounter: 14:00 - Subjective Interval History: 87-year-old female with no history of lung disease presented with acute onset of cough and shortness of breath. She was originally treated at outside hospital for pneumonia and acute renal failure. She then was transferred to this ospital for further management. Chest x-ray at the outside hospital showed possible right-sided pneumonia. Respiratory panel showed positive RSV. Patient was treated with IV antibiotics, bronchodilators, and the IV steroids. Yesterday morning, patient was found tachypniec and sob. ABG at that time showed respiratory acidosis with PCO2 at 80, patient was placed on BiPAP and she also received 1 dose of IV Lasix. - Exam Vitals: Temp Pulse Resp BP Pulse Ox 97.6 F 75 16 142/63 97 11/04/18 11:35 11/04/18 11:35 11/04/18 11:35 11/04/18 11:35 11/04/18 11:35 Exam: Constitutional: Vitals as noted. Conversant. mild respiratory Distress. Respiratory : mild accessory muscle use, no rales,. rhonchi heard on RLL. Crackes heard on both base. Cardiovascular : RRR, +S1, +S2. no murmur, gallop, rubs. No chest wall tenderness GI/Abdominal : Soft, Non-tender, Non-distended, normal bowel sounds, soft, no peritoneal signs. no orgenomegaly or mass appreciated. no hernia. Musculoskeletal: no deformity noted. 1+ edema or no cyanosis. warm extremities, pulses palpable and symmetrical in UE/LE. no calf tenderness. Neurological: AO X3, CN II-XII grossly intact, grossly normal motor and sensory exam. Pych: Good insight and judgement. Intact memory. AOx3. - Assessment and Plan (1) Acute metabolic encephalopathy Current Visit: Yes Status: Acute Assessment and Plan: Pt significantly lethargic today , and WBC up to 24. May be seconday to steroids but infection cannot be ruled out Pt as MRSA UTI. Will broaden antibiotic coverage to vanc and zosyn. Repeat blood cultures. CXR shows improved pleural effusions Pt also received ativan overnight and could be possible cause for her lethargy (2) MELL (acute kidney injury) Current Visit: Yes Status: Acute Assessment and Plan: MELL on CKD stage 3. Likely secondary to hydronephrosis with occluded stent seen on stent Had nephrostomy tube placed on 11/02 and has good output. Creatinine has trended down slightly with gentle hydration Renal following and appreciate recs (3) Hydronephrosis Current Visit: Yes Status: Acute Assessment and Plan: Hydronephrosis with MELL on CKD. CT showed significant right sided hydronephrosis with possible malfunctioning ureteral stent s/p nephrostomy tube placement. gentle hydration (4) UTI (urinary tract infection) Current Visit: Yes Status: Acute Assessment and Plan: Urine cultures growing MRSA. Continue doxycycline (5) Acute respiratory failure Current Visit: Yes Status: Acute Assessment and Plan: Acute hypoxic hypercapnic respiratory failure likely secondary to COPD exacerbation, viral and bacterial pneumonia Pt has diffuse wheezing this am. Will start on IV steroids, continue levaquin, nebs and BIPAP as needed Improved. Wean off steroids (6) Pneumonia Current Visit: Yes Status: Acute Assessment and Plan: Continue patient on Levaquin and supportive care for viral pneumonia We will follow up blood cultures and sputum cultures (7) HTN (hypertension) Current Visit: Yes Status: Acute Assessment and Plan: Continue with home medications. We will hold ARB (8) Diabetes type 2, uncontrolled Current Visit: Yes Status: Acute Assessment and Plan: Continue Accu-Cheks and sliding scale with ADA diet after passing swallow evaluation (9) Anemia Current Visit: Yes Status: Acute Assessment and Plan: Denies any dark color stool. No obvious acute bleeding. Possibly related to chronic kidney disease Continue ferrous sulfate. Gave one dose of venofer this am due to severe iron deficiency (10) Pressure ulcer Current Visit: Yes Status: Acute Assessment and Plan: Pt has stage 2 pressure ulcer. Continue dressing per wound care (11) DVT prophylaxis Current Visit: Yes Status: Acute Assessment and Plan: heparin - Time Spent with Patient Total time spent is greater than 50% in coordination of care (as documented) at patient's floor/unit and/or counseling patient: Internal Medicine: Result - Labs CBC & Chem 7: 11/04/18 08:20 11/04/18 08:20 Labs: Short CBC 11/04/18 Range/Units 08:20 WBC 24.8 H (4.3-11.1) K/mcL Hgb 8.8 L (11.5-15.4) g/dL Hct 29.2 L (35.3-44.9) % Plt Count 165 (140-400) K/mcL Neutrophils # 20.8 H (1.6-8.9) K/mcL BMP 11/04/18 08:20 Sodium 143 Potassium 3.8 Chloride 114 H Carbon Dioxide 16 L BUN 108 H Creatinine 2.92 H Glucose 207 H Calcium 8.4 L - ABG Interpretation ABG results: ABG ABG pH 7.30 pH Units (7.32-7.45) L 10/29/18 17:15 ABG pCO2 35 mmHg (35-45) 10/29/18 17:15 ABG pO2 82 mmHg (85-104) L 10/29/18 17:15 ABG O2 Saturation 95 % (95-98) 10/29/18 17:15 PT/INR, D-dimer PT 13.6 Seconds (9.4-12.1) H 11/02/18 12:29 - Impressions Impressions Chest X-Ray 11/04/18 10:23 IMPRESSION: Improved appearance demonstrating a decrease in pulmonary vascular congestion and edema and decrease in bilateral pleural effusions D/ / David Tinajero MD / David Tinajero MD Interpreting Provider: David Tinajero MD Consult Discharge Plan - Plan Referrals: Jammie Schumacher MD [Primary Care Provider] - (Patient is going to [facility]) (3) Hydronephrosis Qualifiers: Qualified Code(s): N13.30 - Unspecified hydronephrosis (4) UTI (urinary tract infection) Qualifiers: Urinary tract infection type: acute cystitis Hematuria presence: with hematuria Qualified Code(s): N30.01 - Acute cystitis with hematuria (5) Acute respiratory failure Qualifiers: Respiratory failure complication: hypercapnia Qualified Code(s): J96.02 - Acute respiratory failure with hypercapnia (6) Pneumonia Qualifiers: Pneumonia type: due to unspecified organism Laterality: right Lung location: lower lobe of lung Qualified Code(s): J18.1 - Lobar pneumonia, unspecified organism (7) HTN (hypertension) Qualifiers: Hypertension type: essential hypertension Qualified Code(s): I10 - Essential (primary) hypertension (8) Diabetes type 2, uncontrolled Qualifiers: Glycemic state: with hyperglycemia Qualified Code(s): E11.65 - Type 2 diabetes mellitus with hyperglycemia (9) Anemia Qualifiers: Chronic kidney disease stage: unspecified stage Qualified Code(s): N18.9 - Chronic kidney disease, unspecified; D63.1 - Anemia in chronic kidney disease (10) Pressure ulcer Qualifiers: Pressure injury location: sacral region Pressure injury stage: stage 2 Qual ified Code(s): L89.152 - Pressure ulcer of sacral region, stage 2
[2018-11-04] MEDS: Piperacillin/Tazobactam 3.375 GM in 0.9 % Sodium Chloride Mini Bag 100 ML IVPB SCH (14:16)
[2018-11-04 18:24] LABS: ABG Base Excess -5 mEq/L (-2 to 3); ABG HCO3 19 mEq/L (21-27); ABG Oxygen Saturation 94 % (95-98); ABG PCO2 32 mmHg (35-45); ABG PH 7.38 pH Units (7.32-7.45); ABG PO2 70 mmHg (85-104); ABG TCO2 20 mEq/L (20-26)
[2018-11-04] MEDS ORDERED: 0.9 % Sodium Chloride 250 ML IVC ONE (19:04)
[2018-11-04] MEDS: Mirtazapine 15 MG TABLET PO SCH (20:39)
[2018-11-04] MEDS: Insulin DETEMIR 100 UNIT/ML X5UNITS SQ SCH (20:39)
[2018-11-05] MEDS: Piperacillin/Tazobactam 3.375 GM in 0.9 % Sodium Chloride Mini Bag 100 ML IVPB SCH ×2 (01:48→12:00)
[2018-11-05] MEDS: Ipratropium/Albuterol Neb 3 ML IH PRN ×2 (05:31→07:51)
[2018-11-05 07:11] LABS: Hematocrit 28.4 % (35.3-44.9); Hemoglobin 8.9 g/dL (11.5-15.4); Mean Corpuscular HGB Conc 31.3 g/dL (31.6-35.5); Mean Corpuscular Hemoglobin 28.4 pg (28.0-33.3); Mean Corpuscular Volume 90.7 fL (83.0-100.0); Mean Platelet Volume 11.4 fL (9.4-12.4); Platelet Count 170 K/mcL (140-400); Red Blood Count 3.13 M/mcL (3.82-4.97); Red Cell Distribution Width 15.7 % (11.5-14.5)
[2018-11-05 07:28] LABS: Calcium 8.5 mg/dL (8.6-10.3); Magnesium 2.3 mg/dL (1.6-2.6); Phosphorous 3.9 mg/dL (2.7-4.5); Potassium 3.8 mEq/L (3.5-5.1)
--- NOTE | 2018-11-05 07:35 | Urology Progress Note ---
Date of Encounter: 11/05/18 Time of Encounter: 07:30 - Assessment and Plan (1) Acute kidney injury superimposed on CKD Current Visit: Yes Status: Acute Assessment and plan: Improving at this time. (2) Hydronephrosis, right Current Visit: Yes Status: Acute Assessment and plan: Continue with right nephrostomy tube. (3) UTI (urinary tract infection) Current Visit: Yes Status: Acute Assessment and plan: Patient on culture specific antibiotics. Awaiting new culture results. Did have some concern the patient's WBC count is continuing to rise even though she is on steroids. We will continue to follow along closely. Qualifiers: Urinary tract infection type: acute cystitis Hematuria presence: with hematuria Qualified Code(s): N30.01 - Acute cystitis with hematuria Progress Note Narrative: Patient seen this morning. Patient sleeping this morning. Patient did have a difficult night with some confusion. Urine culture positive for MRSA. Patient on culture specific antibiotics. The white blood cell count continuing to increase. Good output from right nephrostomy tube. Objective Initial Vital Signs Temp Pulse Resp BP Pulse Ox 97.8 F 97 16 163/66 97 10/28/18 16:39 10/28/18 16:39 10/28/18 16:39 10/28/18 16:39 10/28/18 16:39 - General physical appearance Present: well developed, well nourished - Abdomen Present: soft. Absent: tender - Labs 11/05/18 06:56 11/05/18 06:56 Diabetes panel 11/04/18 11/05/18 Range/Units 08:20 06:56 Sodium 143 148 H (136-145) mEq/L Potassium 3.8 3.8 (3.5-5.1) mEq/L Chloride 114 H 120 H (98-107) mEq/L Carbon Dioxide 16 L 19 L (23-29) mEq/L BUN 108 H 100 H (8-23) mg/dL Creatinine 2.92 H 2.50 H (0.60-1.20) mg/dL Glucose 207 H 98 (70-105) mg/dL Calcium 8.4 L 8.5 L (8.6-10.3) mg/dL Calcium panel 11/04/18 11/05/18 Range/Units 08:20 06:56 Calcium 8.4 L 8.5 L (8.6-10.3) mg/dL Phosphorus 4.1 3.9 (2.7-4.5) mg/dL Pituitary panel 11/04/18 11/05/18 Range/Units 08:20 06:56 Sodium 143 148 H (136-145) mEq/L Potassium 3.8 3.8 (3.5-5.1) mEq/L Chloride 114 H 120 H (98-107) mEq/L Carbon Dioxide 16 L 19 L (23-29) mEq/L BUN 108 H 100 H (8-23) mg/dL Creatinine 2.92 H 2.50 H (0.60-1.20) mg/dL Glucose 207 H 98 (70-105) mg/dL Calcium 8.4 L 8.5 L (8.6-10.3) mg/dL Adrenal panel 11/04/18 11/05/18 Range/Units 08:20 06:56 Sodium 143 148 H (136-145) mEq/L Potassium 3.8 3.8 (3.5-5.1) mEq/L Chloride 114 H 120 H (98-107) mEq/L Carbon Dioxide 16 L 19 L (23-29) mEq/L BUN 108 H 100 H (8-23) mg/dL Creatinine 2.92 H 2.50 H (0.60-1.20) mg/dL Glucose 207 H 98 (70-105) mg/dL Calcium 8.4 L 8.5 L (8.6-10.3) mg/dL Consult Discharge Plan - Plan Referrals: Jammie Schumacher MD [Primary Care Provider] - (Patient is going to [facility])
[2018-11-05 07:44] LABS: Lymphocytes # 2.6 K/mcL (0.6-4.6); Monocytes # 1.6 K/mcL (0.0-1.3); Neutrophils # 21.9 K/mcL (1.6-8.9)
[2018-11-05 07:45] LABS: Platelet Estimate Normal (Normal)
[2018-11-05] MEDS: Budesonide/Formoterol 160/4.5 1 PUFF INH IH SCH ×2 (07:51→22:51)
[2018-11-05] MEDS: Insulin LISPRO 300 UNITS/3 ML VIAL SQ SCH ×4 (08:10→21:53)
--- NOTE | 2018-11-05 08:35 | Internal Med Progress Note ---
Hospitalist Progress Note - Encounter Date of Encounter: 11/05/18 Time of Encounter: 08:30 - Subjective Interval History: 87-year-old female with no history of lung disease presented with acute onset of cough and shortness of breath. She was originally treated at outside hospital for pneumonia and acute renal failure. She then was transferred to this ospital for further management. Chest x-ray at the outside hospital showed possible right-sided pneumonia. Respiratory panel showed positive RSV. Patient was treated with IV antibiotics, bronchodilators, and the IV steroids. Yesterday morning, patient was found tachypniec and sob. ABG at that time showed respiratory acidosis with PCO2 at 80, patient was placed on BiPAP and she also received 1 dose of IV Lasix. - Exam Vitals: Temp Pulse Resp BP Pulse Ox 97.4 F L 70 18 144/69 94 11/05/18 07:52 11/05/18 07:52 11/05/18 07:54 11/05/18 07:52 11/05/18 07:54 Exam: Constitutional: Vitals as noted. Conversant. mild respiratory Distress. Respiratory : mild accessory muscle use, no rales,. rhonchi heard on RLL. Crackes heard on both base. Cardiovascular : RRR, +S1, +S2. no murmur, gallop, rubs. No chest wall tenderness GI/Abdominal : Soft, Non-tender, Non-distended, normal bowel sounds, soft, no peritoneal signs. no orgenomegaly or mass appreciated. no hernia. Musculoskeletal: no deformity noted. 1+ edema or no cyanosis. warm extremities, pulses palpable and symmetrical in UE/LE. no calf tenderness. Neurological: AO X3, CN II-XII grossly intact, grossly normal motor and sensory exam. Pych: Good insight and judgement. Intact memory. AOx3. - Assessment and Plan (1) Acute metabolic encephalopathy Current Visit: Yes Status: Acute Assessment and Plan: Pt significantly lethargic today , and has had worsening leukocytosis. May be seconday to steroids but infection cannot be ruled out. Steroids have been discontinued Pt has MRSA adn Enterococcus UTI. Will broaden antibiotic coverage to vanc and zosyn. Repeat blood cultures. CXR shows improved pleural effusions Will consult ID for further management and appreciate recs (2) MELL (acute kidney injury) Current Visit: Yes Status: Acute Assessment and Plan: MELL on CKD stage 3. Likely secondary to hydronephrosis with occluded stent seen on stent Had nephrostomy tube placed on 11/02 and has good output. Creatinine has trended down slightly with gentle hydration Renal following and appreciate recs. Will continue to hydrate gently due to CHF. Lasix as tolerated by kidney function (3) Hydronephrosis Current Visit: Yes Status: Acute Assessment and Plan: Hydronephrosis with MELL on CKD. CT showed significant right sided hydronephrosis with possible malfunctioning ureteral stent s/p nephrostomy tube placement. gentle hydration (4) UTI (urinary tract infection) Current Visit: Yes Status: Acute Assessment and Plan: Urine cultures growing MRSA and Enterococcus. Continue vanc and zosyn (5) Acute respiratory failure Current Visit: Yes Status: Acute Assessment and Plan: Acute hypoxic hypercapnic respiratory failure likely secondary to COPD exace rbation, viral and bacterial pneumonia Pt has diffuse wheezing this am. Will start on IV steroids, continue levaquin, nebs and BIPAP as needed Improved. Wean off steroids (6) Pneumonia Current Visit: Yes Status: Acute Assessment and Plan: Continue patient on Levaquin and supportive care for viral pneumonia We will follow up blood cultures and sputum cultures (7) HTN (hypertension) Current Visit: Yes Status: Acute Assessment and Plan: Continue with home medications. We will hold ARB (8) Diabetes type 2, uncontrolled Current Visit: Yes Status: Acute Assessment and Plan: Continue Accu-Cheks and sliding scale with ADA diet after passing swallow evaluation (9) Anemia Current Visit: Yes Status: Acute Assessment and Plan: Denies any dark color stool. No obvious acute bleeding. Possibly related to chronic kidney disease Continue ferrous sulfate. Gave one dose of venofer this am due to severe iron deficiency (10) Pressure ulcer Current Visit: Yes Status: Acute Assessment and Plan: Pt has stage 2 pressure ulcer. Continue dressing per wound care (11) DVT prophylaxis Current Visit: Yes Status: Acute Assessment and Plan: heparin DVT Prophylaxis: heparin sc - Time Spent with Patient Total time spent is greater than 50% in coordination of care (as documented) at patient's floor/unit and/or counseling patient: Internal Medicine: Result - Labs CBC & Chem 7: 11/05/18 06:56 11/05/18 06:56 Labs: Short CBC 11/04/18 11/05/18 Range/Units 08:20 06:56 WBC 24.8 H 26.1 H (4.3-11.1) K/mcL Hgb 8.8 L 8.9 L (11.5-15.4) g/dL Hct 29.2 L 28.4 L (35.3-44.9) % Plt Count 165 170 (140-400) K/mcL Neutrophils # 20.8 H 21.9 H (1.6-8.9) K/mcL BMP 11/04/18 11/05/18 08:20 06:56 Sodium 143 148 H Potassium 3.8 3.8 Chloride 114 H 120 H Carbon Dioxide 16 L 19 L BUN 108 H 100 H Creatinine 2.92 H 2.50 H Glucose 207 H 98 Calcium 8.4 L 8.5 L - ABG Interpretation ABG results: ABG ABG pH 7.38 pH Units (7.32-7.45) 11/04/18 18:19 ABG pCO2 32 mmHg (35-45) L 11/04/18 18:19 ABG pO2 70 mmHg (85-104) L 11/04/18 18:19 ABG O2 Saturation 94 % (95-98) L 11/04/18 18:19 PT/INR, D-dimer PT 13.6 Seconds (9.4-12.1) H 11/02/18 12:29 - Impressions Impressions Chest X-Ray 11/04/18 10:23 IMPRESSION: Improved appearance demonstrating a decrease in pulmonary vascular congestion and edema and decrease in bilateral pleural effusions D/ / David Tinajero MD / David Tinajero MD Interpreting Provider: David Tinajero MD Head CT 11/04/18 15:56 IMPRESSION: No acute intracranial abnormality. Diffuse atrophic changes with findings suggesting chronic microvascular ischemia D/ / David Tinajero MD / David Tinajero MD Interpreting Provider: David Tinajero MD Consult Discharge Plan - Plan Referrals: Jammie Schumacher MD [Primary Care Provider] - (Patient is going to [facility]) (3) Hydronephrosis Qualifiers: Qualified Code(s): N13.30 - Unspecified hydronephrosis (4) UTI (urinary tract infection) Qualifiers: Urinary tract infection type: acute cystitis Hematuria presence: with hematuria Qualified Code(s): N30.01 - Acute cystitis with hematuria (5) Acute respiratory failure Qualifiers: Respiratory failure complication: hypercapnia Qualified Code(s): J96.02 - Acute respiratory failure with hypercapnia (6) Pneumonia Qualifiers: Pneumonia type: due to unspecified organism Laterality: right Lung location: lower lobe of lung Qualified Code(s): J18.1 - Lobar pneumonia, unspecified organism (7) HTN (hypertension) Qualifiers: Hypertension type: essential hypertension Qualified Code(s): I10 - Essential (primary) hypertension (8) Diabetes type 2, uncontrolled Qualifiers: Glycemic state: with hyperglycemia Qualified Code(s): E11.65 - Type 2 diabetes mellitus with hyperglycemia (9) Anemia Qualifiers: Chronic kidney disease stage: unspecified stage Qualified Code(s): N18.9 - Chronic kidney disease, unspecified; D63.1 - Anemia in chronic kidney disease (10) Pressure ulcer Qualifiers: Pressure injury location: sacral region Pressure injury stage: stage 2 Qualified Code(s): L89.152 - Pressure ulcer of sacral region, stage 2
[2018-11-05] MEDS ORDERED: Vancomycin 1 EACH in 0.9 % Sodium Chloride 250 ML IVPB PRN (09:00)
[2018-11-05] MEDS: D5% in Water 1,000 ML IVC SCH (09:31)
[2018-11-05] MEDS: Verapamil ER (24 HR) 240 MG TABLET.ER PO SCH (09:48)
--- NOTE | 2018-11-05 10:31 | Nephrology Progress Note ---
Addendum entered and electronically signed by Aramis Garnica MD 11/05/18 20:54: I examined this patient and discussed the medical decision-making with FAVIOLA Gonzalez. I agree with the documented findings, disposition and treatment plan as described except to the extent set forth below. Original Note: Date of Encounter: 11/05/18 Time of Encounter: 10:23 - Assessment and Plan (1) Pneumonia Current Visit: Yes Status: Acute Per primary team. CT consistent multifocal PNA and RSV positive Qualifiers: Pneumonia type: due to unspecified organism Laterality: right Lung location: lower lobe of lung Qualified Code(s): J18.1 - Lobar pneumonia, unspecified organism (2) UTI (urinary tract infection) Current Visit: Yes Status: Acute MRSA positive culture noted, abx per primary team. If WBC continues to increase, repeat BC and urine with culture and consult ID. Qualifiers: Urinary tract infection type: acute cystitis Hematuria presence: with hem aturia Qualified Code(s): N30.01 - Acute cystitis with hematuria (3) Pressure ulcer Current Visit: Yes Status: Acute Per wound care. Qualifiers: Pressure injury location: sacral region Pressure injury stage: stage 2 Qualified Code(s): L89.152 - Pressure ulcer of sacral region, stage 2 (4) Acute kidney injury superimposed on CKD Current Visit: Yes Status: Acute SCr worsening at 3.37, GFR 13 with BUN 114 likely multifactorial with pre-renal state after diuretics and sepsis, obstruction relieved with nephrotstomy tube. Steroids likely also contributing to elevated BUN. There is an underlying CKD given atrophic kidneys but pt denies any nephrology visits only urology with Dr Jeter but does not recall when ureteral stent was placed. Continue to avoid nephrotoxins if possible UOP 1050 for 24 hour total, 200 for today. Discussed goals of care with pt and family. No acute indication for [employer] just yet but might need this stay (5) Hydronephrosis, right Current Visit: Yes Status: Acute s/p nephrostomy tube, urology following (6) Elevated uric acid in blood Current Visit: Yes Status: Acute Allipurinol ordered today. May increase to 200 mg PO daily when d/teresa. Subjective Principal diagnosis: pneumonia Interval history: Pt seen and examined, resting with eyes closed during exam. Objective - Vital Signs Vital signs: Vital Signs Temp Pulse Resp BP Pulse Ox 11/05/18 07:54 18 94 11/05/18 07:52 97.4 F L 70 16 144/69 95 11/05/18 05:32 16 98 11/05/18 04:42 97.9 F 71 18 135/77 95 11/04/18 23:44 98.5 F 78 18 138/64 94 11/04/18 20:08 98.0 F 70 18 135/66 97 11/04/18 16:15 97.6 F 68 16 123/66 95 11/04/18 11:35 97.6 F 75 16 142/63 97 Intake and Output 11/04/18 11/05/18 11/05/18 23:59 07:59 15:59 Intake Total 100 / 100 600 / 600 240 / 240 Output Total 600 / 600 200 / 200 Balance -500 / -500 400 / 400 240 / 240 Intake: IV Fluids 100 / 100 600 / 600 0 / 0 0.9 % Sodium Chloride 250 ML @ 250 / 250 937.5 mls/hr IVC .Q16M [facility] Rx#: [id number] Zosyn 3.375 GM In 0.9 % Sodium 100 / 100 100 / 100 Chloride (Mini-Bag +) 100 ML @ 25 mls/hr IVPB Q12H [facility] Rx#: [id number] Oral 240 / 240 Output: Right Nephrostomy 300 / 300 Wound Drainage 300 / 300 200 / 200 Right Lower Back 300 / 300 200 / 200 Other: Meal Breakfast Percent of Meal Consumed 50% Blood Glucose* 229 86 - General Appearance General appearance: Present: fatigue, frail EENT: Present: ATNC, hearing intact, vision intact Neck: Present: supple Respiratory: Present: clear Cardiology: Present: edema (+1 pitting edema noted to bilat lower extremities.), normal S1, normal S2 Gastrointestinal: Present: normoactive bowel sounds, no tenderness, no guarding Integumentary: Present: no rash, warm and dry Neurologic: Present: confused Psychiatric: Present: mood/affect appropriate, cooperative - Lab 11/05/18 06:56 11/05/18 06:56 Most recent lab results ABG pH 7.38 pH Units (7.32-7.45) 11/04/18 18:19 ABG pCO2 32 mmHg (35-45) L 11/04/18 18:19 ABG pO2 70 mmHg (85-104) L 11/04/18 18:19 ABG HCO3 19 mEq/L (21-27) L 11/04/18 18:19 ABG O2 Saturation 94 % (95-98) L 11/04/18 18:19 Calcium 8.5 mg/dL (8.6-10.3) L 11/05/18 06:56 Phosphorus 3.9 mg/dL (2.7-4.5) 11/05/18 06:56 Magnesium 2.3 mg/dL (1.6-2.6) 11/05/18 06:56 Urine Creatinine 60 mg/dL 10/29/18 12:24 Urine Sodium 78.9 mEq/L 10/29/18 12:24 Consult Discharge Plan - Plan Referrals: Jammie Schumacher MD [Primary Care Provider] - ([facility] is going to [facility])
[2018-11-05] MEDS ORDERED: Ethanol\\Acetic Acid\\Na Ace\\Ben 1,000 ML IRRIG.SOLN IR ONE (16:14)
[2018-11-05] MEDS: Mirtazapine 15 MG TABLET PO SCH (22:03)
[2018-11-05] MEDS: Insulin DETEMIR 100 UNIT/ML X5UNITS SQ SCH (22:04)
[2018-11-06] MEDS: Piperacillin/Tazobactam 3.375 GM in 0.9 % Sodium Chloride Mini Bag 100 ML IVPB SCH ×2 (01:50→12:47)
[2018-11-06 06:52] LABS: Hematocrit 30.4 % (35.3-44.9); Hemoglobin 9.4 g/dL (11.5-15.4); Mean Corpuscular HGB Conc 30.9 g/dL (31.6-35.5); Mean Corpuscular Hemoglobin 28.6 pg (28.0-33.3); Mean Corpuscular Volume 92.4 fL (83.0-100.0); Mean Platelet Volume 11.8 fL (9.4-12.4); Platelet Count 162 K/mcL (140-400); Red Blood Count 3.29 M/mcL (3.82-4.97)
[2018-11-06 07:12] LABS: Calcium 8.3 mg/dL (8.6-10.3); Magnesium 2.2 mg/dL (1.6-2.6); Phosphorous 3.3 mg/dL (2.7-4.5); Potassium 3.9 mEq/L (3.5-5.1)
[2018-11-06] MEDS: Budesonide/Formoterol 160/4.5 1 PUFF INH IH SCH ×2 (07:31→23:05)
[2018-11-06] MEDS: D5% in Water 1,000 ML IVC SCH ×2 (07:47→23:37)
[2018-11-06 07:53] LABS: Monocytes # 0.7 K/mcL (0.0-1.3)
[2018-11-06 07:54] LABS: Lymphocytes # 2.9 K/mcL (0.6-4.6); Neutrophils # 27.8 K/mcL (1.6-8.9); Platelet Estimate Normal (Normal)
[2018-11-06 07:55] LABS: Hypochromasia Present (Not Present)
--- NOTE | 2018-11-06 07:58 | Internal Med Progress Note ---
Hospitalist Progress Note - Encounter Date of Encounter: 11/06/18 Time of Encounter: 08:00 - Subjective Interval History: 87-year-old female with no history of lung disease presented with acute onset of cough and shortness of breath. She was originally treated at outside hospital for pneumonia and acute renal failure. She then was transferred to this ospital for further management. Chest x-ray at the outside hospital showed possible right-sided pneumonia. Respiratory panel showed positive RSV. Patient was treated with IV antibiotics, bronchodilators, and the IV steroids. Yesterday morning, patient was found tachypniec and sob. ABG at that time showed respiratory acidosis with PCO2 at 80, patient was placed on BiPAP and she also received 1 dose of IV Lasix. - Exam Vitals: Temp Pulse Resp BP Pulse Ox 97.5 F L 100 18 123/69 98 11/06/18 04:54 11/06/18 04:54 11/06/18 04:54 11/06/18 04:54 11/06/18 04:54 Exam: Constitutional: Vitals as noted. Conversant. mild respiratory Distress. Respiratory : mild accessory muscle use, no rales,. rhonchi heard on RLL. Crackes heard on both base. Cardiovascular : RRR, +S1, +S2. no murmur, gallop, rubs. No chest wall tenderness GI/Abdominal : Soft, Non-tender, Non-distended, normal bowel sounds, soft, no peritoneal signs. no orgenomegaly or mass appreciated. no hernia. Musculoskeletal: no deformity noted. 1+ edema or no cyanosis. warm extremities, pulses palpable and symmetrical in UE/LE. no calf tenderness. Neurological: AO X3, CN II-XII grossly intact, grossly normal motor and sensory exam. Pych: Good insight and judgement. Intact memory. AOx3. - Assessment and Plan (1) Acute metabolic encephalopathy Current Visit: Yes Status: Acute Assessment and Plan: Pt significantly lethargic today , and has had worsening leukocytosis. May be seconday to steroids but infection cannot be ruled out. Steroids have been discontinued Pt has MRSA and Enterococcus UTI. Will broaden antibiotic coverage to vanc and zosyn. Repeat blood cultures. CXR shows improved pleural effusions Leukocytosis continues to worsen although patient has been afebrile. Will consult ID for further management and appreciate recs (2) MELL (acute kidney injury) Current Visit: Yes Status: Acute Assessment and Plan: MELL on CKD stage 3. Likely secondary to hydronephrosis with occluded stent seen on stent Had nephrostomy tube placed on 11/02 and has good output. Creatinine has trended down slightly with gentle hydration Renal following and appreciate recs. 11/06. Kidney function is recovering with gentle hydration. D/C IV fluids. Resume lasix as tolerated if kidney function continues to recover (3) Hydronephrosis Current Visit: Yes Status: Acute Assessment and Plan: Hydronephrosis with MELL on CKD. CT showed significant right sided hydronephrosis with possible malfunctioning ureteral stent s/p nephrostomy tube placement. gentle hydration (4) UTI (urinary tract infection) Current Visit: Yes Status: Acute Assessment and Plan: Urine cultures growing MRSA and Enterococcus. Continue vanc and zosyn (5) Acute respiratory failure Current Visit: Yes Status: Acute Assessment and Plan: Acute hypoxic hypercapnic respiratory failure likely secondary to COPD exacerbation, viral and bacterial pneumonia Pt has diffuse wheezing this am. Will start on IV steroids, continue levaquin, nebs and BIPAP as needed Improved. Wean off steroids (6) Pneumonia Current Visit: Yes Status: Acute Assessment and Plan: Continue patient on Levaquin and supportive care for viral pneumonia We will follow up blood cultures and sputum cultures (7) HTN (hypertension) Current Visit: Yes Status: Acute Assessment and Plan: Continue with home medications. We will hold ARB (8) Diabetes type 2, uncontrolled Current Visit: Yes Status: Acute Assessment and Plan: Continue Accu-Cheks and sliding scale with ADA diet after passing swallow evaluation (9) Anemia Current Visit: Yes Status: Acute Assessment and Plan: Denies any dark color stool. No obvious acute bleeding. Possibly related to chronic kidney disease Continue ferrous sulfate. Gave one dose of venofer this am due to severe iron deficiency (10) Pressure ulcer Current Visit: Yes Status: Acute Assessment and Plan: Pt has stage 2 pressure ulcer. Continue dressing per wound care (11) DVT prophylaxis Current Visit: Yes Status: Acute Assessment and Plan: heparin - Time Spent with Patient Total time spent is greater than 50% in coordination of care (as documented) at patient's floor/unit and/or counseling patient: Internal Medicine: Result - Labs CBC & Chem 7: 11/06/18 06:21 11/06/18 06:21 Labs: Short CBC 11/06/18 Range/Units 06:21 WBC 32.3 H* (4.3-11.1) K/mcL Hgb 9.4 L (11.5-15.4) g/dL Hct 30.4 L (35.3-44.9) % Plt Count 162 (140-400) K/mcL Neutrophils # 27.8 H (1.6-8.9) K/mcL BMP 11/06/18 06:21 Sodium 148 H Potassium 3.9 Chloride 121 H Carbon Dioxide 21 L BUN 84 H Creatinine 2.20 H Glucose 77 Calcium 8.3 L - ABG Interpretation ABG results: ABG ABG pH 7.38 pH Units (7.32-7.45) 11/04/18 18:19 ABG pCO2 32 mmHg (35-45) L 11/04/18 18:19 ABG pO2 70 mmHg (85-104) L 11/04/18 18:19 ABG O2 Saturation 94 % (95-98) L 11/04/18 18:19 PT/INR, D-dimer PT 13.6 Seconds (9.4-12.1) H 11/02/18 12:29 Consult Discharge Plan - Plan Referrals: Jammie Schumacher MD [Primary Care Provider] - (Patient is going to [facility]) (3) Hydronephrosis Qualifiers: Qualified Code(s): N13.30 - Unspecified hydronephrosis (4) UTI (urinary tract infection) Qualifiers: Urinary tract infection type: acute cystitis Hematuria presence: with hematuria Qualified Code(s): N30.01 - Acute cystitis with hematuria (5) Acute respiratory failure Qualifiers: Respiratory failure complication: hypercapnia Qualified Code(s): J96.02 - Acute respiratory failure with hypercapnia (6) Pneumonia Qualifiers: Pneumonia type: due to unspecified organism Laterality: right Lung location: lower lobe of lung Qualified Code(s): J18.1 - Lobar pneumonia, unspecified organism (7) HTN (hypertension) Qualifiers: Hypertension type: essential hypertension Qualified Code(s): I10 - Essential (primary) hypertension (8) Diabetes type 2, uncontrolled Qualifiers: Glycemic state: with hyperglycemia Qualified Code(s): E11.65 - Type 2 diabetes mellitus with hyperglycemia (9) Anemia Qualifiers: Chronic kidney disease stage: unspecified stage Qualified Code(s): N18.9 - Chronic kidney disease, unspecified; D63.1 - Anemia in chronic kidney disease (10) Pressure ulcer Qualifiers: Pressure injury location: sacral region Pressure injury stage: stage 2 Qualified Code(s): L89.152 - Pressure ulcer of sacral region, stage 2
[2018-11-06] MEDS: Insulin LISPRO 300 UNITS/3 ML VIAL SQ SCH ×4 (08:35→21:15)
[2018-11-06] MEDS: Verapamil ER (24 HR) 240 MG TABLET.ER PO SCH (09:18)
--- NOTE | 2018-11-06 09:50 | Nephrology Progress Note ---
Addendum entered and electronically signed by Aramis Garnica MD 11/06/18 21:41: I examined this patient and discussed the medical decision-making with FAVIOLA Gonzalez. I agree with the documented findings, disposition and treatment plan as described except to the extent set forth below. Original Note: Date of Encounter: 11/06/18 Time of Encounter: 09:48 - Assessment and Plan (1) Pneumonia Current Visit: Yes Status: Acute Per primary team. CT consistent multifocal PNA and RSV positive. Qualifiers: Pneumonia type: due to unspecified organism Laterality: right Lung location: lower lobe of lung Qualified Code(s): J18.1 - Lobar pneumonia, unspecified organism (2) UTI (urinary tract infection) Current Visit: Yes Status: Acute MRSA positive culture noted, abx per primary team. ID consult, appreciate recommendations. Qualifiers: Urinary tract infection type: acute cystitis Hematuria presence: with hematuria Qualified Code(s): N30.01 - Acute cystitis with hematuria (3) Pressure ulcer Current Visit: Yes Status: Acute Per wound care. Qualifiers: Pressure injury location: sacral region Pressure injury stage: stage 2 Qualified Code(s): L89.152 - Pressure ulcer of sacral region, stage 2 (4) Acute kidney injury superimposed on CKD Current Visit: Yes Status: Acute Scr 2.2, GFR 21. There is an underlying CKD given atrophic kidneys but pt denies any nephrology visits only urology with Dr Jeter. Continue to avoid nephrotoxins if possible. UOP 1375 for 24 hour total. (5) Hydronephrosis, right Current Visit: Yes Status: Acute s/p nephrostomy tube, urology following (6) Elevated uric acid in blood Current Visit: Yes Status: Acute Allipurinol ordered today. May increase to 200 mg PO daily when d/teresa. Subjective Principal diagnosis: pneumonia Interval history: Pt seen and examined, resting with eyes closed during exam. Granddaughter at bedside with reliable information. Pt continues to be very drowsy, will open eyes but will not answer questions. Objective - Vital Signs Vital signs: Vital Signs Temp Pulse Resp BP Pulse Ox 11/06/18 08:27 97.8 F 69 18 149/71 97 11/06/18 04:54 97.5 F L 100 18 123/69 98 11/06/18 04:37 97.8 F 73 20 139/69 96 11/05/18 22:51 17 96 11/05/18 21:19 97.6 F 74 18 135/64 95 11/05/18 16:13 97.8 F 68 16 131/56 96 11/05/18 11:46 18 96 11/05/18 11:37 97.6 F 72 16 135/67 96 Intake and Output 11/05/18 11/06/18 11/06/18 23:59 07:59 15:59 Intake Total 340 / 340 40 / 40 Output Total 450 / 450 Balance -110 / -110 40 / 40 Intake: IV Fluids 100 / 100 Zosyn 3.375 GM In 0.9 % Sodium 100 / 100 Chloride (Mini-Bag +) 100 ML @ 25 mls/hr IVPB Q12H [facility] Rx#: [id number] Oral 240 / 240 40 / 40 Output: Wound Drainage 450 / 450 Right Lower Back 450 / 450 Other: Meal Dinner Breakfast Percent of Meal Consumed 75% 10% Blood Glucose* 96 68 - General Appearance General appearance: Present: fatigue, frail EENT: Present: ATNC, hearing intact, vision intact Neck: Present: supple Respiratory: Present: clear Cardiology: Present: edema (Trace bilat lower extremity edema ), normal S1, normal S2 Gastrointestinal: Present: normoactive bowel sounds, no tenderness, no guarding Integumentary: Present: no rash, warm and dry Neurologic: Present: confused Psychiatric: Present: mood/affect appropriate, cooperative - Lab 11/06/18 06:21 11/06/18 06:21 Most recent lab results ABG pH 7.38 pH Units (7.32-7.45) 11/04/18 18:19 ABG pCO2 32 mmHg (35-45) L 11/04/18 18:19 ABG pO2 70 mmHg (85-104) L 11/04/18 18:19 ABG HCO3 19 mEq/L (21-27) L 11/04/18 18:19 ABG O2 Saturation 94 % (95-98) L 11/04/18 18:19 Calcium 8.3 mg/dL (8.6-10.3) L 11/06/18 06:21 Phosphorus 3.3 mg/dL (2.7-4.5) 11/06/18 06:21 Magnesium 2.2 mg/dL (1.6-2.6) 11/06/18 06:21 Urine Creatinine 60 mg/dL 10/29/18 12:24 Urine Sodium 78.9 mEq/L 10/29/18 12:24 Consult Discharge Plan - Plan Referrals: Jammie Schumacher MD [Primary Care Provider] - (Patient is going to [facility])
--- NOTE | 2018-11-06 09:59 | Infectious Disease Consult ---
Date of Encounter: 11/06/18 Time of Encounter: 09:47 Assessment and Plan (1) Sepsis Status: Acute Assessment and plan: Likely multifactorial due to RSV pneumonia Also concerning is UTI with MRSA and Enterococcus faecalis that was amp sensitive Possible aspiration pneumonia as well Qualifiers: Sepsis type: sepsis due to unspecified organism Qualified Code(s): A41.9 - Sepsis, unspecified organism (2) Pneumonia due to respiratory syncytial virus (RSV) Status: Acute (3) UTI (urinary tract infection), bacterial Status: Acute Assessment and plan: Causative organism MRSA and ampicillin sensitive Enterococcus faecalis With associated hydronephrosis status post nephrostomy tube placement by Dr. Marroquin Has been on vancomycin and Zosyn WBC jumped to 32,000 with no obvious reason Concern for perinephric abscess versus severe ileus versus other Check CT abdomen and pelvis We will discuss with Dr. Marroquin see if that is okay with Clinically patient is having back pain but she also has severe constipation and ileus RSV pneumonia I do not think we will be causing that after 9 days (4) MELL (acute kidney injury) Status: Acute (5) Acute respiratory failure Status: Acute Qualifiers: Respiratory failure complication: hypercapnia Qualified Code(s): J96.02 - Acute respiratory failure with hypercapnia (6) Pressure ulcer Status: Acute Qualifiers: Pressure injury location: sacral region Pressure injury stage: stage 2 Qualified Code(s): L89.152 - Pressure ulcer of sacral region, stage 2 (7) Acute metabolic encephalopathy Status: Acute Infectious Disease HPI - Data of Consult Patient: new to practice Consult date: 11/06/18 Requesting Physician: Miller Rubio MD Primary Care Provider: Jammie Schumacher MD - Consult Narrative Reason for consult: Worsening leukocytosis, Urine Cx + MRSA and E faecalis History of present illness: Ms. Amezquita is a 87 year old female Patient is an 87-year-old woman who presented to [facility] on 10/28/2018 with cough and shortness of breath and was admitted for pneumonia. We are consulted on 11/06/2018 for worsening leukocytosis with a urine culture positive for MRSA and Enterococcus faecalis. Patient is an 87-year-old woman with past medical history significant for diabetes mellitus type 2, hypertension, has a pacemaker who was transferred to [facility] from [place] emergency department with complaints of shortness of breath and cough. The coughing and shortness of breath started about 4-5 days prior to admission. Patient was evaluated by her PCP as an outpatient and was given azithromycin with no improvement. At that time patient had no fevers or chills. On admission, patient was afebrile, tachycardic and presenting labs revealed a WBC of 15.5 with 88% neutrophils no bands. BUN 45, CR 1.73, lactic acid 1.4. A urinalysis was obtained which showed large leukocyte esterase, WBCs too numerous to count but many epithelial cells and no culture was done. A respiratory infectious panel was also done and was positive for RSV initial blood cultures 2 out of 2 sets were negative. Urine legionella and pneumococcal antigen were also negative. Initial chest x-ray revealed mild pulmonary vascular congestion and small bilateral pleural effusion does raise the possibility of mild or low- grade congestive heart failure. Asymmetric airspace opacity right lower lobe with fever pneumonia or asymmetric pulmonary edema. Because of the acute kidney injury patient also had an ultrasound of the kidneys which revealed small kid neys with mild right hydronephrosis. Bilateral renal cysts. Cortical medullary ratios are low normal. No signs of pyelonephritis. Patient was started on levofloxacin and prednisone. Since admission patient continued to be afebrile, intermittent tachycardia. Labs revealed worsening leukocytosis with neutrophilic predominance. Today WBC peaked at 32.3 with 85% neutrophils patient also went into acute kidney injury with a creatinine of 3.37 that has since then improved and today's creatinine is 2.2 BUN 84. A repeat urine culture was obtained on October 30 and November 01 which revealed MRSA and MRSA and Enterococcus faecalis that is ampicillin sensitive respectively. Patient had a repeat CT abdomen pelvis which revealed moderate right-sided hydronephrosis with ureteral stent in place suggesting stent mold function an extensive infiltrate at the lung bases left greater than right consistent with multifocal pneumonia. A repeat chest x-ray done on 11/04/2018 revealed improved appearance demonstrating decreased pulmonary vascular congestion and edema and decreased bilateral pleural effusion. They made no mention of U airspace disease or the old airspace disease as a matter of fact. Patient currently is on vancomycin and Zosyn. We were asked to evaluate the patient's make further recommendations. On further questioning including the family who are at bedside patient has not had a bowel movement for 7 days. Patient was also given Haldol and Valium about 48 hours ago and apparently has been very lethargic since. Patient also complaining of back pain CC: Miller Rubio MD Past Med Surg Social Fam HX - Past Medical History Medical history: diabetes, hypertension Additional medical history: pacemaker Psychiatric history: no psych history - Past Surgical History Surgical History: pacemaker - Social History Smoking Status: Never smoker Smokeless Tobacco Status: No Alcohol use: none Drug use: none - Family History Brother Hx Family Cancer: Yes (unknown) Father Living Status: Hx Family Cardiac Disorders: No Hx Family Respiratory Disorders: No Mother Hx Family Endocrine Disorder: Yes (diabetes) Son Living Status: Still Living Hx Family Cardiac Disorders: No Hx Family Respiratory Disorders: No Infectious Disease-CN:Meds Azithromycin [Zithromax] 250 mg PO DAILY 10/28/18 [History] Irbesartan [Avapro] 300 mg PO DAILY 10/28/18 [History] RX: Mirtazapine 7.5 mg PO HS 10/28/18 [History] RX: glyBURIDE [GlyBURIDE] 2.5 mg PO BIDWM 10/28/18 [History] Verapamil HCl [Verapamil ER] 240 mg PO DAILY 10/28/18 [History] Acetaminophen [Tylenol] 325 mg PO BID 10/29/18 [History] RX: Fluticasone Propionate Nasal [Flonase] 1 spray NS DAILY 10/29/18 [History] Allergy/AdvReac Type Severity Reaction Status Date / Time No Known Allergies Allergy Verified 10/28/18 17:18 Review of systems: 10 point review of systems done, negative other for what mentioned in the history of present illness Exam - Constitutional Vitals: Temp Pulse Resp BP Pulse Ox 97.8 F 69 18 149/71 97 11/06/18 08:27 11/06/18 08:27 11/06/18 08:27 11/06/18 08:27 11/06/18 08:27 General appearance: cooperative, no acute distress, no febrile - Head Head exam: Present: atraumatic, normocephalic - Eye Eye exam: Present: EOMI, PERRL, sclera anicteric - ENT Additional comments: Mucous membranes dry, positive oral thrush - Neck Neck exam: Present: full ROM. Absent: meningismus - Respiratory Respiratory exam: Present: CTAB. Absent: wheezes Additional comments: Poor inspiratory effort - Cardiovascular Cardiovascular exam: Present: RRR, +S1, +S2 - GI/Abdominal GI/Abdominal exam: Present: normal bowel sounds, soft. Absent: tenderness - Extremities Exam Extremities exam: Present: full ROM, pedal edema. Absent: calf tenderness - Back Exam Additional comments: Nephrostomy tube right back intact with no surrounding erythema - Psychiatric Psychiatric exam: Present: depressed, flat affect - Skin Skin exam: Present: normal color. Absent: rash Infectious Disease CN: Results - Labs CBC & Chem 7: 11/06/18 06:21 11/06/18 06:21 Cultures: Cultures 11/01/18 15:32 Urine Culture - Final Urine,Clean Catch Methicillin Resistant S.aureus Enterococcus faecalis 11/04/18 16:57 Blood Culture - Preliminary Peripheral Venipuncture Culture is incubating and being continuously monitored for growth. Final report to follow. 11/04/18 16:56 Blood Culture - Preliminary Peripheral Venipuncture Culture is incubating and being continuously monitored for growth. Final report to follow. 10/29/18 11:40 Blood Culture - Final Peripheral Venipuncture No growth. Final report. 10/29/18 11:46 Blood Culture - Final Peripheral Venipuncture No growth. Final report. 10/30/18 23:40 Urine Culture - Final Urine,Catheterized Methicillin Resistant S.aureus 10/29/18 12:24 Legionella Antigen - Final Urine,Clean Catch Streptococcus pneumoniae Antigen (M - Final Serology: Serology 11/01/18 11/01/18 10/29/18 Range/Units 15:32 15:32 12:24 Urine Color Yellow (Yellow) Urine Clarity Cloudy A (Clear) Urine pH 5.5 (5.0-8.0) pH Units Ur Specific [place] 1.020 (1.010-1.025) Urine Protein 30 H (Neg-Trace) mg/dL Urine Glucose (UA) Normal (Normal) mg/dL Urine Ketones Negative (Negative) mg/dL Urine Blood Large H (Negative) Urine Nitrite Negative (Negative) Urine Bilirubin Negative (Negative) Urine Urobilinogen Normal (Normal) mg/dL Ur Leukocyte Esterase Large H (Negative) Urine Microscopic RBC 50-100 H (0-3) per hpf Urine Microscopic WBC TNTC H (0-3) per hpf Ur Eosinophil Smear 0 (None Seen) % Ur Squamous Epith Cells Many H (None-Few) per lpf Urine Bacteria Few (None-Few) per hpf Hyaline Casts None Seen (None-Few) per lpf Ur Culture Indicated? (NO) Urine Creatinine 60 mg/dL Urine Sodium 78.9 mEq/L Chlamy pneumoniae PCR (Not Detect) Adenovirus (PCR) (Not Detect) B. pertussis DNA (PCR) (Not Detect) B.parapertussis DNA PCR (Not Detect) Coronavirus OC43 (PCR) (Not Detect) Coronavirus HKU1 (PCR) (Not Detect) Coronavirus 229E (PCR) (Not Detect) Coronavirus NL63 (PCR) (Not Detect) Human Metapneumovir PCR (Not Detect) Influenza A (H1) PCR (Not Detect) Influ A (H1N1/09) PCR (Not Detect) Influenza A (H3) PCR (Not Detect) Influenza A Untype (PCR) (Not Detect) Influenza Type B (PCR) (Not Detect) M.pneumoniae DNA (PCR) (Not Detect) Parainfluenza 1 (PCR) (Not Detect) Parainfluenza 2 (PCR) (Not Detect) Parainfluenza 3 (PCR) (Not Detect) Parainfluenza 4 (PCR) (Not Detect) RSV (PCR) (Not Detect) Entero/Rhino (PCR) (Not Detect) 10/29/18 10/28/18 Range/Units 12:24 23:08 Urine Color Yellow (Yellow) Urine Clarity Cloudy A (Clear) Urine pH 5.5 (5.0-8.0) pH Units Ur Specific [place] 1.025 (1.010-1.025) Urine Protein >=300 H (Neg-Trace) mg/dL Urine Glucose (UA) Normal (Normal) mg/dL Urine Ketones Negative (Negative) mg/dL Urine Blood Large H (Negative) Urine Nitrite Positive A (Negative) Urine Bilirubin Negative (Negative) Urine Urobilinogen Normal (Normal) mg/dL Ur Leukocyte Esterase Large H (Negative) Urine Microscopic RBC TNTC H (0-3) per hpf Urine Microscopic WBC TNTC H (0-3) per hpf Ur Eosinophil Smear (None Seen) % Ur Squamous Epith Cells Many H (None-Few) per lpf Urine Bacteria Many H (None-Few) per hpf Hyaline Casts Few (None-Few) per lpf Ur Culture Indicated? NO. A (NO) Urine Creatinine mg/dL Urine Sodium mEq/L Chlamy pneumoniae PCR Not Detected (Not Detect) Adenovirus (PCR) Not Detected (Not Detect) B. pertussis DNA (PCR) Not Detected (Not Detect) B.parapertussis DNA PCR Not Detected (Not Detect) Coronavirus OC43 (PCR) Not Detected (Not Detect) Coronavirus HKU1 (PCR) Not Detected (Not Detect) Coronavirus 229E (PCR) Not Detected (Not Detect) Coronavirus NL63 (PCR) Not Detected (Not Detect) Human Metapneumovir PCR Not Detected (Not Detect) Influenza A (H1) PCR Not Detected (Not Detect) Influ A (H1N1/09) PCR Not Detected (Not Detect) Influenza A (H3) PCR Not Detected (Not Detect) Influenza A Untype (PCR) Not Detected (Not Detect) Influenza Type B (PCR) Not Detected (Not Detect) M.pneumoniae DNA (PCR) Not Detected (Not Detect) Parainfluenza 1 (PCR) Not Detected (Not Detect) Parainfluenza 2 (PCR) Not Detected (Not Detect) Parainfluenza 3 (PCR) Not Detected (Not Detect) Parainfluenza 4 (PCR) Not Detected (Not Detect) RSV (PCR) DETECTED A (Not Detect) Entero/Rhino (PCR) Not Detected (Not Detect) Consult Discharge Plan - Plan Referrals: Jammie Schumacher MD [Primary Care Provider] - (Patient is going to [facility])
--- NOTE | 2018-11-06 12:39 | Urology Progress Note ---
Date of Encounter: 11/06/18 Time of Encounter: 12:38 - Assessment and Plan (1) Acute kidney injury superimposed on CKD Current Visit: Yes Status: Acute Assessment and plan: Slowly improving serum creatinine (2) Hydronephrosis, right Current Visit: Yes Status: Acute Assessment and plan: Status post right nephrostomy tube. Keep in place (3) UTI (urinary tract infection) Current Visit: Yes Status: Acute Assessment and plan: Patient on culture specific antibiotics. Patient still with rising leukocytosis. Infectious disease consulted today. Qualifiers: Urinary tract infection type: acute cystitis Hematuria presence: with hematuria Qualified Code(s): N30.01 - Acute cystitis with hematuria Progress Note Narrative: Patient seen today. Patient very sleepy in chair. Most discussion was had with patient's family. Objective Initial Vital Signs Temp Pulse Resp BP Pulse Ox 97.8 F 97 16 163/66 97 10/28/18 16:39 10/28/18 16:39 10/28/18 16:39 10/28/18 16:39 10/28/18 16:39 - General physical appearance Present: well developed, well nourished - Abdomen Present: soft. Absent: tender - Genitourinary Present: other (Clear urine from nephrostomy tube) - Labs 11/06/18 06:21 11/06/18 06:21 Diabetes panel 11/06/18 Range/Units 06:21 Sodium 148 H (136-145) mEq/L Potassium 3.9 (3.5-5.1) mEq/L Chloride 121 H (98-107) mEq/L Carbon Dioxide 21 L (23-29) mEq/L BUN 84 H (8-23) mg/dL Creatinine 2.20 H (0.60-1.20) mg/dL Glucose 77 (70-105) mg/dL Calcium 8.3 L (8.6-10.3) mg/dL Calcium panel 11/06/18 Range/Units 06:21 Calcium 8.3 L (8.6-10.3) mg/dL Phosphorus 3.3 (2.7-4.5) mg/dL Pituitary panel 11/06/18 Range/Units 06:21 Sodium 148 H (136-145) mEq/L Potassium 3.9 (3.5-5.1) mEq/L Chloride 121 H (98-107) mEq/L Carbon Dioxide 21 L (23-29) mEq/L BUN 84 H (8-23) mg/dL Creatinine 2.20 H (0.60-1.20) mg/dL Glucose 77 (70-105) mg/dL Calcium 8.3 L (8.6-10.3) mg/dL Adrenal panel 11/06/18 Range/Units 06:21 Sodium 148 H (136-145) mEq/L Potassium 3.9 (3.5-5.1) mEq/L Chloride 121 H (98-107) mEq/L Carbon Dioxide 21 L (23-29) mEq/L BUN 84 H (8-23) mg/dL Creatinine 2.20 H (0.60-1.20) mg/dL Glucose 77 (70-105) mg/dL Calcium 8.3 L (8.6-10.3) mg/dL Consult Discharge Plan - Plan Referrals: Jammie Schumacher MD [Primary Care Provider] - ([facility] is going to [facility])
[2018-11-06] MEDS ORDERED: Acetaminophen 325 MG TABLET PO PRN (14:53)
[2018-11-06] MEDS: Mirtazapine 15 MG TABLET PO SCH (21:16)
[2018-11-06] MEDS: Insulin DETEMIR 100 UNIT/ML X5UNITS SQ SCH (21:16)
[2018-11-07] MEDS: Piperacillin/Tazobactam 3.375 GM in 0.9 % Sodium Chloride Mini Bag 100 ML IVPB SCH ×2 (00:03→13:12)
[2018-11-07] MEDS: Insulin LISPRO 300 UNITS/3 ML VIAL SQ SCH ×4 (09:09→21:42)
[2018-11-07] MEDS: Verapamil ER (24 HR) 240 MG TABLET.ER PO SCH (09:13)
[2018-11-07] MEDS: Budesonide/Formoterol 160/4.5 1 PUFF INH IH SCH ×2 (10:10→20:04)
--- NOTE | 2018-11-07 11:01 | Infectious Disease Progress No ---
Date of Encounter: 11/07/18 Time of Encounter: 09:45 - Assessment and Plan (1) Sepsis Current Visit: Yes Status: Acute The patient had 2 sepsis criteria. Likely secondary to UTI and pneumonia. Clinically, patient is improved, but her white blood cell count has been going up. Tachycardia has resolved. Cultures drawn 10/29/18 were negative 2 sets. Repeat cultures 11/04/18 are no growth to date 2 sets. Recommendations: Await repeat cultures to finalize. Repeat CBC and BMP. Continue Vancomycin IV. Pharmacy to dose. Goal trough ~15. Continue Zosyn 3.375 grams IV Q8H. Duration of treatment depends on the clinical picture. Monitor renal function and for drug toxicity and dose-adjust antibiotics. Qualifiers: Sepsis type: sepsis due to unspecified organism Qualified Code(s): A41.9 - Sepsis, unspecified organism (2) UTI (urinary tract infection) Current Visit: Yes Status: Acute Causative organism: MRSA and ampicillin sensitive Enterococcus faecalis. Was noted to have associated hydronephrosis on CT scan. Status post nephrostomy tube placement by interventional radiology 11/02/18. Repeat CT of the abdomen and pelvis was negative for perinephric abscess or other abnormality to explain the patient's leukocytosis. Nephrostomy tube management per the urology team. Currently on IV Vancomycin. Qualifiers: Urinary tract infection type: acute cystitis Hematuria presence: with hematuria Qualified Code(s): N30.01 - Acute cystitis with hematuria (3) Pneumonia due to respiratory syncytial virus (RSV) Current Visit: Yes Status: Acute Chest x-ray showed asymmetric airspace opacity in the right lower lobe that favors pneumonia or asymmetric pulmonary edema. Cause of organism: RSV, but there is a possibility that there is also an element of aspiration. HEAD INSULATION [employer]ARD [employer]W OPERATOR evaluation revealed pharyngeal residue suspected with potential aspiration. The patient has been recommended for thin liquids with pureed diet. Currently on IV Zosyn. (4) Acute metabolic encephalopathy Current Visit: Yes Status: Acute Etiology: Unclear. UTI versus other. Unsure what the patient's baseline is, but the patient's family tells me she is not much better today. CT head negative for acute intracranial abnormality. Continue to monitor closely. (5) Acute respiratory failure Current Visit: Yes Status: Acute Qualifiers: Respiratory failure complication: hypercapnia Qualified Code(s): J96.02 - Acute respiratory failure with hypercapnia (6) MELL (acute kidney injury) Current Visit: Yes Status: Acute Likely secondary to UTI and hydronephrosis. Has been improving over the past few days, but today's labs have not been drawn. Recheck BMP now. Dose-adjust antibiotics and avoid nephrotoxins. Nephrology consult and following. (7) Pressure ulcer Current Visit: Yes Status: Acute Dressing changes per wound care recommendations. Offloading and Q2H turning. Qualifiers: Pressure injury location: sacral region Pressure injury stage: stage 2 Qualified Code(s): L89.152 - Pressure ulcer of sacral region, stage 2 - Subjective Interval history: Patient seen and examined with family at the bedside. She is currently sitting up in the bedside chair. Per family, the patient's mental status is unchanged and she still seems a little lethargic this morning. The patient denies any fevers or chills. She denies chest pain, shortness of breath, or cough. She denies nausea, vomiting, diarrhea, or constipation. Per her son, she had a hawa wel movement this morning. She denies any new skin lesions. She does complain of some oral ulcers and a cold sore developing to her right upper lip. Infect Dis PN-Objective Data - Labs CBC & Chem 7: 11/06/18 06:21 11/06/18 06:21 Labs: Laboratory Results - last 24 hr 11/05/18 11/06/18 11/06/18 21:12 08:25 11:45 POC Glucose 96 68 L Lactic Acid 1.3 Random Vancomycin 11/06/18 11/06/18 11/06/18 12:02 17:08 20:30 POC Glucose 93 159 H 131 H Lactic Acid Random Vancomycin 11/07/18 04:00 POC Glucose Lactic Acid Random Vancomycin 20 Cultures: Cultures 11/01/18 15:32 Urine Culture - Final Urine,Clean Catch Methicillin Resistant S.aureus Enterococcus faecalis 11/04/18 16:57 Blood Culture - Preliminary Peripheral Venipuncture Culture is incubating and being continuously monitored for growth. Final report to follow. 11/04/18 16:56 Blood Culture - Preliminary Peripheral Venipuncture Culture is incubating and being continuously monitored for growth. Final report to follow. 10/29/18 11:40 Blood Culture - Final Peripheral Venipuncture No growth. Final report. 10/29/18 11:46 Blood Culture - Final Peripheral Venipuncture No growth. Final report. 10/30/18 23:40 Urine Culture - Final Urine,Catheterized Methicillin Resistant S.aureus 10/29/18 12:24 Legionella Antigen - Final Urine,Clean Catch Streptococcus pneumoniae Antigen (M - Final Serology 11/01/18 11/01/18 10/29/18 Range/Units 15:32 15:32 12:24 Urine Color Yellow (Yellow) Urine Clarity Cloudy A (Clear) Urine pH 5.5 (5.0-8.0) pH Units Ur Specific Johnston 1.020 (1.010-1.025) Urine Protein 30 H (Neg-Trace) mg/dL Urine Glucose (UA) Normal (Normal) mg/dL Urine Ketones Negative (Negative) mg/dL Urine Blood Large H (Negative) Urine Nitrite Negative (Negative) Urine Bilirubin Negative (Negative) Urine Urobilinogen Normal (Normal) mg/dL Ur Leukocyte Esterase Large H (Negative) Urine Microscopic RBC 50-100 H (0-3) per hpf Urine Microscopic WBC TNTC H (0-3) per hpf Ur Eosinophil Smear 0 (None Seen) % Ur Squamous Epith Cells Many H (None-Few) per lpf Urine Bacteria Few (None-Few) per hpf Hyaline Casts None Seen (None-Few) per lpf Ur Culture Indicated? (NO) Urine Creatinine 60 mg/dL Urine Sodium 78.9 mEq/L Chlamy pneumoniae PCR (Not Detect) Adenovirus (PCR) (Not Detect) B. pertussis DNA (PCR) (Not Detect) B.parapertussis DNA PCR (Not Detect) Coronavirus OC43 (PCR) (Not Detect) Coronavirus HKU1 (PCR) (Not Detect) Coronavirus 229E (PCR) (Not Detect) Coronavirus NL63 (PCR) (Not Detect) Human Metapneumovir PCR (Not Detect) Influenza A (H1) PCR (Not Detect) Influ A (H1N1/09) PCR (Not Detect) Influenza A (H3) PCR (Not Detect) Influenza A Untype (PCR) (Not Detect) Influenza Type B (PCR) (Not Detect) M.pneumoniae DNA (PCR) (Not Detect) Parainfluenza 1 (PCR) (Not Detect) Parainfluenza 2 (PCR) (Not Detect) Parainfluenza 3 (PCR) (Not Detect) Parainfluenza 4 (PCR) (Not Detect) RSV (PCR) (Not Detect) Entero/Rhino (PCR) (Not Detect) 10/29/18 10/28/18 Range/Units 12:24 23:08 Urine Color Yellow (Yellow) Urine Clarity Cloudy A (Clear) Urine pH 5.5 (5.0-8.0) pH Units Ur Specific Johnston 1.025 (1.010-1.025) Urine Protein >=300 H (Neg-Trace) mg/dL Urine Glucose (UA) Normal (Normal) mg/dL Urine Ketones Negative (Negative) mg/dL Urine Blood Large H (Negative) Urine Nitrite Positive A (Negative) Urine Bilirubin Negative (Negative) Urine Urobilinogen Normal (Normal) mg/dL Ur Leukocyte Esterase Large H (Negative) Urine Microscopic RBC TNTC H (0-3) per hpf Urine Microscopic WBC TNTC H (0-3) per hpf Ur Eosinophil Smear (None Seen) % Ur Squamous Epith Cells Many H (None-Few) per lpf Urine Bacteria Many H (None-Few) per hpf Hyaline Casts Few (None-Few) per lpf Ur Culture Indicated? NO. A (NO) Urine Creatinine mg/dL Urine Sodium mEq/L Chlamy pneumoniae PCR Not Detected (Not Detect) Adenovirus (PCR) Not Detected (Not Detect) B. pertussis DNA (PCR) Not Detected (Not Detect) B.parapertussis DNA PCR Not Detected (Not Detect) Coronavirus OC43 (PCR) Not Detected (Not Detect) Coronavirus HKU1 (PCR) Not Detected (Not Detect) Coronavirus 229E (PCR) Not Detected (Not Detect) Coronavirus NL63 (PCR) Not Detected (Not Detect) Human Metapneumovir PCR Not Detected (Not Detect) Influenza A (H1) PCR Not Detected (Not Detect) Influ A (H1N1/09) PCR Not Detected (Not Detect) Influenza A (H3) PCR Not Detected (Not Detect) Influenza A Untype (PCR) Not Detected (Not Detect) Influenza Type B (PCR) Not Detected (Not Detect) M.pneumoniae DNA (PCR) Not Detected (Not Detect) Parainfluenza 1 (PCR) Not Detected (Not Detect) Parainfluenza 2 (PCR) Not Detected (Not Detect) Parainfluenza 3 (PCR) Not Detected (Not Detect) Parainfluenza 4 (PCR) Not Detected (Not Detect) RSV (PCR) DETECTED A (Not Detect) Entero/Rhino (PCR) Not Detected (Not Detect) - Impressions Impressions Abdomen/Pelvis CT 11/06/18 18:00 IMPRESSION: Left lower lobe airspace disease with small pleural effusion possible pneumonia. Satisfactory position, percutaneous right nephrostomy catheter and ureteral stent catheter. High density material possible small stone fragments adjacent to the stents in the renal pelvis with renal pelvic decompression. Mild surrounding fat infiltration. Cholelithiasis. The stool load in the colon is not excessive. 3 cm left adrenal gland nodule possible adenoma. This is likely incidental particularly given patient's age. D/ / Jimmy Cooper MD / Jimmy Cooper MD Interpreting Provider: Jimmy Cooper MD Exam - Constitutional Vitals: Temp Pulse Resp BP Pulse Ox 97.5 F L 71 18 139/78 95 11/07/18 08:21 11/07/18 08:21 11/07/18 10:10 11/07/18 08:21 11/07/18 10:10 General appearance: average body habitus, cooperative, no acute distress - Head Head exam: Present: atraumatic, normal inspection, normocephalic - Eye Eye exam: Present: EOMI, normal appearance, PERRL Pupils: Present: normal accommodation - ENT ENT exam: Present: mucous membranes moist Additional comments: Vesicular lesion noted to the right upper lip. - Neck Neck exam: Present: normal inspection. Absent: meningismus - Respiratory Respiratory exam: Present: CTAB. Absent: rales, respiratory distress, rhonchi, wheezes - Cardiovascular Cardiovascular exam: Present: RRR, +S1, +S2 - GI/Abdominal GI/Abdominal exam: Present: normal bowel sounds, soft. Absent: distended, t enderness - Extremities Exam Extremities exam: Present: normal inspection, pedal edema (1+ bilateral lower extremities). Absent: tenderness - Back Exam Additional comments: Nephrostomy tube noted to the right flank with cloudy urine noted. - Neurological Exam Neurological exam: Present: alert, oriented X3, no focal deficits - Psychiatric Psychiatric exam: Present: normal affect, normal mood - Skin Skin exam: Present: dry, intact, normal color, warm Consult Discharge Plan - Plan Referrals: Jammie Schumacher MD [Primary Care Provider] - (Patient is going to [facility]) - Attending Attestation I examined this patient and my medical decision-making was reviewed with the Resident Physician. I agree with the documented findings, disposition and treatment plan as described except to the extent set forth below.
--- NOTE | 2018-11-07 11:28 | Nephrology Progress Note ---
Addendum entered and electronically signed by Aramis Garnica MD 11/07/18 21:55: I examined this patient and discussed the medical decision-making with FAVIOLA Gonzalez. I agree with the documented findings, disposition and treatment plan as described except to the extent set forth below. Original Note: Date of Encounter: 11/07/18 Time of Encounter: 11:26 - Assessment and Plan (1) Pneumonia Current Visit: Yes Status: Acute Per primary team. CT consistent multifocal PNA and RSV positive. Qualifiers: Pneumonia type: due to unspecified organism Laterality: right Lung location: lower lobe of lung Qualified Code(s): J18.1 - Lobar pneumonia, unspecified organism (2) UTI (urinary tract infection) Current Visit: Yes Status: Acute MRSA positive culture noted, abx per primary team. ID consult, appreciate recommendations. Qualifiers: Urinary tract infection type: acute cystitis Hematuria presence: with hematuria Qualified Code(s): N30.01 - Acute cystitis with hematuria (3) Pressure ulcer Current Visit: Yes Status: Acute Per wound care. Qualifiers: Pressure injury location: sacral region Pressure injury stage: stage 2 Qualified Code(s): L89.152 - Pressure ulcer of sacral region, stage 2 (4) Acute kidney injury superimposed on CKD Current Visit: Yes Status: Acute New labs have not been collected today. There is an underlying CKD given atrophic kidneys but pt denies any nephrology visits only urology with Dr Jeter. Continue to avoid nephrotoxins if possible. UOP 600 for 24 hour total. (5) Hydronephrosis, right Current Visit: Yes Status: Acute s/p nephrostomy tube, urology following (6) Elevated uric acid in blood Current Visit: Yes Status: Acute Allipurinol ordered today. May increase to 200 mg PO daily when d/teresa. Subjective Principal diagnosis: pneumonia Interval history: Pt seen and examined sitting up in chair. Son at bedside. Continues to be confused per son. Denies any shortness of breath or chest pain. Objective - Vital Signs Vital signs: Vital Signs Temp Pulse Resp BP Pulse Ox 11/07/18 10:10 18 95 11/07/18 08:21 97.5 F L 71 17 139/78 98 11/07/18 05:17 98.5 F 71 18 160/67 94 11/07/18 00:18 97.4 F L 72 18 133/63 94 01/08/19 23:05 16 94 11/06/18 20:24 98.0 F 72 18 136/66 95 11/06/18 17:12 97.7 F 76 19 156/69 97 11/06/18 12:05 97.5 F L 77 19 123/69 96 Intake and Output 11/06/18 11/07/18 11/07/18 23:59 07:59 15:59 Intake Total 100 / 100 Output Total 200 / 200 350 / 350 250 / 250 Balance -100 / -100 -350 / -350 -250 / -250 Intake: IV Fluids 100 / 100 Zosyn 3.375 GM In 0.9 % Sodium 100 / 100 Chloride (Mini-Bag +) 100 ML @ 25 mls/hr IVPB Q12H [id number] Rx#: [id number] Output: Left Nephrostomy 350 / 350 Right Nephrostomy 200 / 200 Wound Drainage 250 / 250 Right Lower Back 250 / 250 Other: # Urine Diapers 1 Weight 61.3 kg Blood Glucose* 131 83 Patient Weight 11/07/18 23:59 Weight 61.3 kg - General Appearance General appearance: Present: well-developed, well-nourished EENT: Present: ATNC, hearing intact, vision intact Neck: Present: supple Respiratory: Present: clear Cardiology: Present: edema (Trace bilat lower extremity edema noted.), normal S1, normal S2 Gastrointestinal: Present: normoactive bowel sounds, no tenderness, no guarding Integumentary: Present: no rash, warm and dry Neurologic: Present: confused Additional Comments: Alert to self and son. Unsure of date and location. Psychiatric: Present: mood/affect appropriate, cooperative - Lab 11/06/18 06:21 11/06/18 06:21 Most recent lab results ABG pH 7.38 pH Units (7.32-7.45) 11/04/18 18: ABG pCO2 32 mmHg (35-45) L 11/04/18 18:19 ABG pO2 70 mmHg (85-104) L 11/04/18 18:19 ABG HCO3 19 mEq/L (21-27) L 11/04/18 18:19 ABG O2 Saturation 94 % (95-98) L 11/04/18 18:19 Calcium 8.3 mg/dL (8.6-10.3) L 11/06/18 06:21 Phosphorus 3.3 mg/dL (2.7-4.5) 11/06/18 06:21 Magnesium 2.2 mg/dL (1.6-2.6) 11/06/18 06:21 Urine Creatinine 60 mg/dL 10/29/18 12:24 Urine Sodium 78.9 mEq/L 10/29/18 12:24 Consult Discharge Plan - Plan Referrals: Jammie Schumacher MD [Primary Care Provider] - ([facility] going [facility])
[2018-11-07] MEDS: Nystatin SUSP 5 ML UD.LIQ BC SCH ×3 (12:10→21:43)
[2018-11-07 15:51] LABS: Eosinophils % 0.4 %; Monocytes % 4.7 %; Red Cell Distribution Width 16.2 % (11.5-14.5); Segmented Neutrophils % 87.4 %
[2018-11-07 15:52] LABS: Basophils # 0.1 K/mcL (0.0-0.2); Basophils % 0.3 %; Eosinophils # 0.1 K/mcL (0.0-0.6); Hematocrit 34.3 % (35.3-44.9); Hemoglobin 10.5 g/dL (11.5-15.4); Lymphocytes # 1.4 K/mcL (0.6-4.6); Lymphocytes % 4.2 %; Mean Corpuscular HGB Conc 30.6 g/dL (31.6-35.5); Mean Corpuscular Hemoglobin 28.6 pg (28.0-33.3); Mean Corpuscular Volume 93.5 fL (83.0-100.0); Mean Platelet Volume 11.2 fL (9.4-12.4); Monocytes # 1.6 K/mcL (0.0-1.3); Neutrophils # 30.1 K/mcL (1.6-8.9); Nucleated Red Blood Cells 0.1 /100 WBC (0); Platelet Count 145 K/mcL (140-400); Red Blood Count 3.67 M/mcL (3.82-4.97)
[2018-11-07 16:25] LABS: Platelet Estimate Slight Decrease (Normal)
[2018-11-07 16:43] LABS: Calcium 8.4 mg/dL (8.6-10.3); Potassium 3.9 mEq/L (3.5-5.1)
--- NOTE | 2018-11-07 18:18 | Internal Med Progress Note ---
Hospitalist Progress Note - Encounter Date of Encounter: 11/07/18 Time of Encounter: 18:14 - Subjective Interval History: Pt's daughter states pt has oral ulcers that started about 2 days ago. Pt states ulcers are painful when she eats. Her appetite has declined. She denies fever, chills, N/V or diarrhea. She denies abdominal pain or any other pain at this time. - Exam Vitals: Temp Pulse Resp BP Pulse Ox 97.9 F 72 19 137/71 97 11/07/18 16:39 11/07/18 16:39 11/07/18 16:39 11/07/18 16:39 11/07/18 16:39 Exam: Physical exam: Constitutional: Vitals as noted. Conversant. mild respiratory Distress. Respiratory : mild accessory muscle use, no rales,. rhonchi heard on RLL. Crackes heard on both base. Cardiovascular : RRR, +S1, +S2. no murmur, gallop, rubs. No chest wall tenderness GI/Abdominal : Soft, Non-tender, Non-distended, normal bowel sounds, soft, no peritoneal signs. no orgenomegaly or mass appreciated. no hernia. Musculoskeletal: no deformity noted. 1+ edema or no cyanosis. warm extremities, pulses palpable and symmetrical in UE/LE. no calf tenderness. Neurological: AO X3, CN II-XII grossly intact, grossly normal motor and sensory exam. Psych: Good insight and judgement. Intact memory. AOx3. - Assessment and Plan (1) Pneumonia Current Visit: Yes Status: Acute Assessment and Plan: Continue patient on Levaquin and supportive care for viral pneumonia. Urine MRSA and Enterococcus faecalis positive. Blood cultures incubating. Pt is Vancomycin and Zosyn. ID on board and following. (2) HTN (hypertension) Current Visit: Yes Status: Acute Assessment and Plan: Continue with home medications. On Verapamil. We will hold ARB (3) Diabetes type 2, uncontrolled Current Visit: Yes Status: Acute Assessment and Plan: Continue Accu-Cheks and sliding scale with ADA diet after passing swallow evaluation (4) Anemia Current Visit: Yes Status: Acute Assessment and Plan: Denies any dark color stool. No obvious acute bleeding. Possibly related to chr onic kidney disease Continue ferrous sulfate. Gave one dose of venofer this admission due to severe iron deficiency (5) MELL (acute kidney injury) Current Visit: Yes Status: Acute Assessment and Plan: MELL on CKD stage 3. Likely secondary to hydronephrosis with occluded stent seen on stent Had nephrostomy tube placed on 11/02 and has good output. Creatinine has trended down slightly with gentle hydration Renal following and appreciate recs. 11/06. Kidney function is recovering with gentle hydration. IV fluids discontinued. Resume lasix as tolerated if kidney function continues to recover. (6) Acute respiratory failure Current Visit: Yes Status: Acute Assessment and Plan: Acute hypoxic hypercapnic respiratory failure likely secondary to COPD exacerbation, viral and bacterial pneumonia Pt had diffuse wheezing but that has improved. Started on IV steroids, continue antibiotic, nebs, and BIPAP as needed Improved. Wean off steroids (7) UTI (urinary tract infection) Current Visit: Yes Status: Acute Assessment and Plan: Urine cultures growing MRSA and Enterococcus. Continue vanc and zosyn (8) Pressure ulcer Current Visit: Yes Status: Acute Assessment and Plan: Pt has stage 2 pressure ulcer. Continue dressing per wound care (9) Hydronephrosis Current Visit: Yes Status: Acute Assessment and Plan: Hydronephrosis with MELL on CKD. CT showed significant right sided hydronephrosis with possible malfunctioning ureteral stent s/p nephrostomy tube placement. gentle hydration (10) Acute metabolic encephalopathy Current Visit: Yes Status: Acute Assessment and Plan: Pt lethargic and has had worsening leukocytosis. May be mutifactorial seconday to steroids but infection cannot be ruled out. Steroids discontinued. Pt has MRSA and Enterococcus UTI. On vanc and zosyn. Repeat blood cultures incubaating. CXR shows improved pleural effusions. Leukocytosis continues to worsen although patient has been afebrile. ID consulted to see for further management and appreciate recs. Also consulting oncology as family states pt has hx of leukocytosis. DVT Prophylaxis: Heparin - Summary of Assessment and Plan Summary of Assessment and Plan: History of present illness: Dr. Rubio Ms. Amezquita is a 87 year old female past medical history of diabetes and hyp ertension with pacemaker unknow cause was transferred from [place] ER with complain of shortness of breath and cough as the hospital was full. Patient has been having coughing shortness of breath for past 4-5 days. Patient was seen by PCP and was started on azithromycin. She did not feel any improvement and had to go to ER for shortness of breath. She denies any fevers or chills. Denies any previous episodes of pneumonia. Denies any recent antibiotic usage. Denies any urinary or bowel complaints. She denies any history of heart attacks or kidney problems. She lives alone by herself and take care of herself. Patient had CBC and BMP flu testing EKG urinalyses and chest x-ray. Lab test showed white count of 14, hemoglobin of 9.5, bicarbonate of 20, glucose of 257, BUNs 48, creatinine 2.1, Flu testing unremarkable. Chest x-ray showed possible right lower lobe pneumonia. EKG had paced rhythm, urine analysis unremarkable for blood, leukocyte esterase, nitrates, WBC RBC and bacteria. She received Levaquin and nebulizer treatments and 500 mL of IV fluids. Her blood pressure w as stable. Per nurse when she was initially transferred she was confused and altered.. On interview patient alert oriented and able to give good history. Complains of cough and shortness of breath for 4-5 days. Confirms above-mentioned history. Denies urinary complaints. Feeling much better in terms of breathing. Discussed CODE STATUS which she has not thought about before. Agrees to the k eep full code for now however if needed would only to short-term life support. Son would be next of kin. Patient currently at home on medication including verapamil, glyburide, irbesartan, mirtazapine and azithromycin. - Time Spent with Patient Total time spent is greater than 50% in coordination of care (as documented) at patient's floor/unit and/or counseling patient: less than 15 minutes Plan of Care Discussed with: patient Internal Medicine: Result - Labs CBC & Chem 7: 11/07/18 15:41 11/07/18 15:41 Labs: Short CBC 11/07/18 Range/Units 15:41 WBC 34.4 H* (4.3-11.1) K/mcL Hgb 10.5 L (11.5-15.4) g/dL Hct 34.3 L (35.3-44.9) % Plt Count 145 (140-400) K/mcL Neutrophils # 30.1 H (1.6-8.9) K/mcL BMP 11/07/18 15:41 Sodium 150 H Potassium 3.9 Chloride 120 H Carbon Dioxide 21 L BUN 66 H Creatinine 1.92 H Glucose 148 H Calcium 8.4 L - ABG Interpretation ABG results: ABG ABG pH 7.38 pH Units (7.32-7.45) 11/04/18 18:19 ABG pCO2 32 mmHg (35-45) L 11/04/18 18:19 ABG pO2 70 mmHg (85-104) L 11/04/18 18:19 ABG O2 Saturation 94 % (95-98) L 11/04/18 18:19 PT/INR, D-dimer PT 13.6 Seconds (9.4-12.1) H 11/02/18 12:29 - Impressions Impressions Abdomen/Pelvis CT 11/06/18 18:00 IMPRESSION: Left lower lobe airspace disease with small pleural effusion possible pneumonia. Satisfactory position, percutaneous right nephrostomy catheter and ureteral stent catheter. High density material possible small stone fragments adjacent to the stents in the renal pelvis with renal pelvic decompression. Mild surrounding fat infiltration. Cholelithiasis. The stool load in the colon is not excessive. 3 cm left adrenal gland nodule possible adenoma. This is likely incidental particularly given patient's age. D/ / Jimmy Cooper MD / Jimmy Cooper MD Interpreting Provider: Jimmy Cooper MD Consult Discharge Plan - Plan Referrals: Jammie Schumacher MD [Primary Care Provider] - (Patient is going to [facility]) (1) Pneumonia Qualifiers: Pneumonia type: due to unspecified organism Laterality: right Lung location: lower lobe of lung Qualified Code(s): J18.1 - Lobar pneumonia, unspecified organism (2) HTN (hypertension) Qualifiers: Hypertension type: essential hypertension Qualified Code(s): I10 - Essential (primary) hypertension (3) Diabetes type 2, uncontrolled Qualifiers: Glycemic state: with hyperglycemia Qualified Code(s): E11.65 - Type 2 diabetes mellitus with hyperglycemia (4) Anemia Qualifiers: Chronic kidney disease stage: unspecified stage Qualified Code(s): N18.9 - Chronic kidney disease, unspecified; D63.1 - Anemia in chronic kidney disease (6) Acute respiratory failure Qualifiers: Respiratory failure complication: hypercapnia Qualified Code(s): J96.02 - Acute respiratory failure with hypercapnia (7) UTI (urinary tract infection) Qualifiers: Urinary tract infection type: acute cystitis Hematuria presence: with hematuria Qualified Code(s): N30.01 - Acute cystitis with hematuria (8) Pressure ulcer Qualifiers: Pressure injury location: sacral region Pressure injury stage: stage 2 Qualified Code(s): L89.152 - Pressure ulcer of sacral region, stage 2 (9) Hydronephrosis Qualifiers: Qualified Code(s): N13.30 - Unspecified hydronephrosis
[2018-11-07] MEDS: Insulin DETEMIR 100 UNIT/ML X5UNITS SQ SCH (21:43)
[2018-11-07] MEDS: Mirtazapine 15 MG TABLET PO SCH (21:44)
[2018-11-08] MEDS: Piperacillin/Tazobactam 3.375 GM in 0.9 % Sodium Chloride Mini Bag 100 ML IVPB SCH ×2 (00:44→11:38)
[2018-11-08] MEDS: Budesonide/Formoterol 160/4.5 1 PUFF INH IH SCH (07:56)
[2018-11-08] MEDS: Insulin LISPRO 300 UNITS/3 ML VIAL SQ SCH ×3 (07:56→18:12)
--- NOTE | 2018-11-08 09:40 | Infectious Disease Progress No ---
Date of Encounter: 11/08/18 Time of Encounter: 09:37 - Assessment and Plan (1) Sepsis Status: Acute The patient had 2 sepsis criteria. Likely secondary to UTI and pneumonia. Afebrile. Her white blood cell count has been going up. Tachycardia has resolved. Cultures drawn 10/29/18 were negative 2 sets. Repeat cultures 11/04/18 are no growth to date 2 sets. Recommendations: Await repeat cultures to finalize. Repeat CBC and BMP. Given new-onset of lethargy and neck pain with flexion, recommend LP ROSSY. Send CSF for cell count with differential, protein, glucose, culture (Aerobic and anaerobic), VZV and HSV. Continue Vancomycin IV. Pharmacy to dose. Goal trough ~15. Continue Zosyn 3.375 grams IV Q8H. Give acyclovir 10mg/kg IV x 1 dose now(dose-adjusted for CrCl ~15). Will defer additional antiviral therapy to the team at [facility]. Duration of treatment depends on the clinical picture. Monitor renal function and for drug toxicity and dose-adjust antibiotics. Qualifiers: Sepsis type: sepsis due to unspecified organism Qualified Code(s): A41.9 - Sepsis, unspecified organism (2) UTI (urinary tract infection) Status: Acute Causative organism: MRSA and ampicillin sensitive Enterococcus faecalis. Was noted to have associated hydronephrosis on CT scan. Status post nephrostomy tube placement by interventional radiology 11/02/18. Repeat CT of the abdomen and pelvis was negative for perinephric abscess or other abnormality to explain the patient's leukocytosis. Nephrostomy tube management per the urology team. Currently on IV Vancomycin. Qualifiers: Urinary tract infection type: acute cystitis Hematuria presence: with hematuria Qualified Code(s): N30.01 - Acute cystitis with hematuria (3) Pneumonia due to respiratory syncytial virus (RSV) Status: Acute Chest x-ray showed asymmetric airspace opacity in the right lower lobe that favors pneumonia or asymmetric pulmonary edema. Cause of organism: RSV, but there is a possibility that there is also an element of aspiration. [employer] evaluation revealed pharyngeal residue suspected with potential aspiration. The patient has been recommended for thin liquids with pureed diet. Currently on IV Zosyn. (4) Acute metabolic encephalopathy Status: Acute Etiology: Unclear. UTI versus other. Unsure what the patient's baseline is, but the patient's family tells me she is not much better today. CT head negative for acute intracranial abnormality. LEthargy worse this morning with pain with flexion of the neck, but oriented x 3. No evidence of encephalitis. Will start Acyclovir given lethargy and meningeal sign. Recommend LP. Discussed with Dr. Oliva. Continue to monitor closely. (5) Acute respiratory failure Status: Acute Qualifiers: Respiratory failure complication: hypercapnia Qualified Code(s): J96.02 - Acute respiratory failure with hypercapnia (6) MELL (acute kidney injury) Status: Acute Likely secondary to UTI and hydronephrosis. Has been improving over the past few days, but today's labs have not been drawn. Recheck BMP now. Dose-adjust antibiotics and avoid nephrotoxins. Nephrology consult and following. (7) Pressure ulcer Status: Acute Dressing changes per wound care recommendations. Offloading and Q2H turning. Qualifiers: Pressure injury location: sacral region Pressure injury stage: stage 2 Qualified Code(s): L89.152 - Pressure ulcer of sacral region, stage 2 (8) Herpes labialis Status: Acute Lesions noted to the tongue and right upper lip. Acyclovir as above. - Subjective Interval history: Patient seen and examined with family at the bedside. Per family, the patient's mental status was improved yesterday evening and this morning she is very lethargic. The patient nods her head yes and no and opens her eyes on command, but is difficult to keep awake during the exam. The patient denies any fevers or chills. She denies chest pain, shortness of breath, or cough. She denies nausea, vomiting, diarrhea, or constipation. Per her grandson, she had a bowel movement lsat night. She denies any new skin lesions. She does complain of some oral ulcers and a cold sore developing to her right upper lip. Per her grandson, she complained of back pain overnight, but denies other complaints and she slept all night. Infect Dis PN-Objective Data - Labs CBC & Chem 7: 11/08/18 09:51 11/08/18 09:51 Labs: Laboratory Results - last 24 hr 11/07/18 11/07/18 11/07/18 08:19 12:08 15:41 WBC 34.4 H* RBC 3.67 L Hgb 10.5 L Hct 34.3 L MCV 93.5 MCH 28.6 MCHC 30.6 L RDW 16.2 H Plt Count 145 MPV 11.2 Immature Gran % 3.0 Seg Neutrophils % 87.4 Lymphocytes % 4.2 Monocytes % 4.7 Eosinophils % 0.4 Basophils % 0.3 Neutrophils # 30.1 H Lymphocytes # 1.4 Monocytes # 1.6 H Eosinophils # 0.1 Basophils # 0.1 Nucleated RBCs/100 WBC 0.1 H Platelet Estimate Slight Decrease L Sodium Potassium Chloride Carbon Dioxide BUN Creatinine Est GFR ( Amer) Est GFR (Non-Af Amer) BUN/Creatinine Ratio Glucose POC Glucose 83 197 H Calculated Osmolality Calcium 11/07/18 11/07/18 11/07/18 15:41 16:38 19:17 WBC RBC Hgb Hct MCV MCH MCHC RDW Plt Count MPV Immature Gran % Seg Neutrophils % Lymphocytes % Monocytes % Eosinophils % Basophils % Neutrophils # Lymphocytes # Monocytes # Eosinophils # Basophils # Nucleated RBCs/100 WBC Platelet Estimate Sodium 150 H Potassium 3.9 Chloride 120 H Carbon Dioxide 21 L BUN 66 H Creatinine 1.92 H Est GFR ( Amer) 30 L Est GFR (Non-Af Amer) 25 L BUN/Creatinine Ratio 34 H Glucose 148 H POC Glucose 122 H 207 H Calculated Osmolality 332 H Calcium 8.4 L Cultures: Cultures 11/01/18 15:32 Urine Culture - Final Urine,Clean Catch Methicillin Resistant S.aureus Enterococcus faecalis 11/04/18 16:57 Blood Culture - Preliminary Peripheral Venipuncture Culture is incubating and being continuously monitored for growth. Final report to follow. 11/04/18 16:56 Blood Culture - Preliminary Peripheral Venipuncture Culture is incubating and being continuously monitor ed for growth. Final report to follow. 10/29/18 11:40 Blood Culture - Final Peripheral Venipuncture No growth. Final report. 10/29/18 11:46 Blood Culture - Final Peripheral Venipuncture No growth. Final report. 10/30/18 23:40 Urine Culture - Final Urine,Catheterized Methicillin Resistant S.aureus 10/29/18 12:24 Legionella Antigen - Final Urine,Clean Catch Streptococcus pneumoniae Antigen (M - Final Serology 11/01/18 11/01/18 10/29/18 Range/Units 15:32 15:32 12:24 Urine Color Yellow (Yellow) Urine Clarity Cloudy A (Clear) Urine pH 5.5 (5.0-8.0) pH Units Ur Specific [place] 1.020 (1.010-1.025) Urine Protein 30 H (Neg-Trace) mg/dL Urine Glucose (UA) Normal (Normal) mg/dL Urine Ketones Negative (Negative) mg/dL Urine Blood Large H (Negative) Urine Nitrite Negative (Negative) Urine Bilirubin Negative (Negative) Urine Urobilinogen Normal (Normal) mg/dL Ur Leukocyte Esterase Large H (Negative) Urine Microscopic RBC 50-100 H (0-3) per hpf Urine Microscopic WBC TNTC H (0-3) per hpf Ur Eosinophil Smear 0 (None Seen) % Ur Squamous Epith Cells Many H (None-Few) per lpf Urine Bacteria Few (None-Few) per hpf Hyaline Casts None Seen (None-Few) per lpf Ur Culture Indicated? (NO) Urine Creatinine 60 mg/dL Urine Sodium 78.9 mEq/L Chlamy pneumoniae PCR (Not Detect) Adenovirus (PCR) (Not Detect) B. pertussis DNA (PCR) (Not Detect) B.parapertussis DNA PCR (Not Detect) Coronavirus OC43 (PCR) (Not Detect) Coronavirus HKU1 (PCR) (Not Detect) Coronavirus 229E (PCR) (Not Detect) Coronavirus NL63 (PCR) (Not Detect) Human Metapneumovir PCR (Not Detect) Influenza A (H1) PCR (Not Detect) Influ A (H1N1/09) PCR (Not Detect) Influenza A (H3) PCR (Not Detect) Influenza A Untype (PCR) (Not Detect) Influenza Type B (PCR) (Not Detect) M.pneumoniae DNA (PCR) (Not Detect) Parainfluenza 1 (PCR) (Not Detect) Parainfluenza 2 (PCR) (Not Detect) Parainfluenza 3 (PCR) (Not Detect) Parainfluenza 4 (PCR) (Not Detect) RSV (PCR) (Not Detect) Entero/Rhino (PCR) (Not Detect) 10/29/18 10/28/18 Range/Units 12:24 23:08 Urine Color Yellow (Yellow) Urine Clarity Cloudy A (Clear) Urine pH 5.5 (5.0-8.0) pH Units Ur Specific [place] 1.025 (1.010-1.025) Urine Protein >=300 H (Neg-Trace) mg/dL Urine Glucose (UA) Normal (Normal) mg/dL Urine Ketones Negative (Negative) mg/dL Urine Blood Large H (Negative) Urine Nitrite Positive A (Negative) Urine Bilirubin Negative (Negative) Urine Urobilinogen Normal (Normal) mg/dL Ur Leukocyte Esterase Large H (Negative) Urine Microscopic RBC TNTC H (0-3) per hpf Urine Microscopic WBC TNTC H (0-3) per hpf Ur Eosinophil Smear (None Seen) % Ur Squamous Epith Cells Many H (None-Few) per lpf Urine Bacteria Many H (None-Few) per hpf Hyaline Casts Few (None-Few) per lpf Ur Culture Indicated? NO. A (NO) Urine Creatinine mg/dL Urine Sodium mEq/L Chlamy pneumoniae PCR Not Detected (Not Detect) Adenovirus (PCR) Not Detected (Not Detect) B. pertussis DNA (PCR) Not Detected (Not Detect) B.parapertussis DNA PCR Not Detected (Not Detect) Coronavirus OC43 (PCR) Not Detected (Not Detect) Coronavirus HKU1 (PCR) Not Detected (Not Detect) Coronavirus 229E (PCR) Not Detected (Not Detect) Coronavirus NL63 (PCR) Not Detected (Not Detect) Human Metapneumovir PCR Not Detected (Not Detect) Influenza A (H1) PCR Not Detected (Not Detect) Influ A (H1N1/09) PCR Not Detected (Not Detect) Influenza A (H3) PCR Not Detected (Not Detect) Influenza A Untype (PCR) Not Detected (Not Detect) Influenza Type B (PCR) Not Detected (Not Detect) M.pneumoniae DNA (PCR) Not Detected (Not Detect) Parainfluenza 1 (PCR) Not Detected (Not Detect) Parainfluenza 2 (PCR) Not Detected (Not Detect) Parainfluenza 3 (PCR) Not Detected (Not Detect) Parainfluenza 4 (PCR) Not Detected (Not Detect) RSV (PCR) DETECTED A (Not Detect) Entero/Rhino (PCR) Not Detected (Not Detect) Exam - Constitutional Vitals: Temp Pulse Resp BP Pulse Ox 98.3 F 83 14 158/70 97 11/08/18 06:43 11/08/18 06:43 11/08/18 07:56 11/08/18 06:43 11/08/18 07:56 General appearance: average body habitus, cooperative, no acute distress - Head Head exam: Present: atraumatic, normal inspection, normocephalic - Eye Eye exam: Present: EOMI, normal appearance, PERRL Pupils: Present: normal accommodation - ENT ENT exam: Present: mucous membranes dry Additional comments: Vesicular lesions noted to the tongue and to the right upper lip. - Neck Neck exam: Present: meningismus (Pain with flexion of the neck.), normal inspection - Respiratory Respiratory exam: Present: CTAB. Absent: rales, respiratory distress, rhonchi, wheezes - Cardiovascular Cardiovascular exam: Present: RRR, +S1, +S2 - GI/Abdominal GI/Abdominal exam: Present: normal bowel sounds, soft. Absent: distended, tenderness - Extremities Exam Extremities exam: Present: normal inspection. Absent: joint swelling, pedal edema, tenderness - Back Exam Back exam: Present: CVA tenderness (R). Absent: CVA tenderness (L) Additional comments: Nephrostomy tube noted to the right flank with clear yellow urine. - Neurological Exam Neurological exam: Present: altered (Difficult to maintain wakefulness. Responds appropriately to questions and verbal commands.), oriented X3, no focal deficits - Skin Skin exam: Present: dry, intact, normal color, warm Consult Discharge Plan - Plan Referrals: Jammie Schumacher MD [Primary Care Provider] - (Patient is going to [facility]) - Attending Attestation I examined this patient and my medical decision-making was reviewed with the Resident Physician. I agree with the documented findings, disposition and treatment plan as described except to the extent set forth below.
[2018-11-08] MEDS ORDERED: Acyclovir 650 MG in D5% in Water 100 ML IVPB SCH (10:00)
[2018-11-08] MEDS ORDERED: D5 IVPB SCH (10:00)
[2018-11-08] MEDS ORDERED: ACYCLOVIR IVPB SCH (10:00)
[2018-11-08] MEDS ORDERED: WATER IVPB SCH (10:00)
[2018-11-08 10:07] LABS: Basophils # 0.1 K/mcL (0.0-0.2); Basophils % 0.2 %; Eosinophils # 0.3 K/mcL (0.0-0.6); Eosinophils % 0.8 %; Hematocrit 31.9 % (35.3-44.9); Hemoglobin 9.6 g/dL (11.5-15.4); Immature Granulocytes % 2.7 % (0-4); Lymphocytes # 1.3 K/mcL (0.6-4.6); Lymphocytes % 3.9 %; Mean Corpuscular HGB Conc 30.1 g/dL (31.6-35.5); Monocytes # 1.6 K/mcL (0.0-1.3); Monocytes % 4.7 %; Neutrophils # 29.1 K/mcL (1.6-8.9); Platelet Count 125 K/mcL (140-400); Red Blood Count 3.43 M/mcL (3.82-4.97); Red Cell Distribution Width 16.3 % (11.5-14.5); Segmented Neutrophils % 87.7 %
--- NOTE | 2018-11-08 10:11 | Discharge Summary ---
Orders not resulted at time of discharge: Pending orders 11/04/18 16:57 Culture,Blood [BC] Routine 11/08/18 09:51 BMP [Basic Metabolic Panel] Stat Complete Blood Count [HEME] Stat Procalcitonin Stat 11/09/18 04:00 BMP [Basic Metabolic Panel] AM 0400 Complete Blood Count [HEME] AM 0400 11/10/18 04:00 BMP [Basic Metabolic Panel] AM 0400 Complete Blood Count [HEME] AM 0400 11/11/18 04:00 BMP [Basic Metabolic Panel] AM 0400 Complete Blood Count [HEME] AM 0400 10/28/18 17:23 Culture,Sputum with Gram Stain [RM] Stat Date of Encounter: 11/08/18 Time of Encounter: 10:11 - Discharge Diagnosis (1) Pneumonia Status: Acute Qualifiers: Pneumonia type: due to unspecified organism Laterality: right Lung location: lower lobe of lung Qualified Code(s): J18.1 - Lobar pneumonia, unspecified organism (2) HTN (hypertension) Status: Acute Qualifiers: Hypertension type: essential hypertension Qualified Code(s): I10 - Essential (primary) hypertension (3) Diabetes type 2, uncontrolled Status: Acute Qualifiers: Glycemic state: with hyperglycemia Qualified Code(s): E11.65 - Type 2 diabetes mellitus with hyperglycemia (4) Anemia Status: Acute Qualifiers: Chronic kidney disease stage: unspecified stage Qualified Code(s): N18.9 - Chronic kidney disease, unspecified; D63.1 - Anemia in chronic kidney disease (5) MELL (acute kidney injury) Status: Acute (6) Acute respiratory failure Status: Acute Qualifiers: Respiratory failure complication: hypercapnia Qualified Code(s): J96.02 - Acute respiratory failure with hypercapnia (7) UTI (urinary tract infection) Status: Acute Qualifiers: Urinary tract infection type: acute cystitis Hematuria presence: with hematuria Qualified Code(s): N30.01 - Acute cystitis with hematuria (8) Pressure ulcer Status: Acute Qualifiers: Pressure injury location: sacral region Pressure injury stage: stage 2 Qualified Code(s): L89.152 - Pressure ulcer of sacral region, stage 2 (9) Hydronephrosis Status: Acute Qualifiers: Qualified Code(s): N13.30 - Unspecified hydronephrosis (10) Acute metabolic encephalopathy Status: Acute Hospital course: Ms. Amezquita is a 87 year old female - Time Spent with Patient Total time spent providing and/or coordinating discharge services: - Discharge Medications Home Medications: Azithromycin [Zithromax] 250 mg PO DAILY 10/28/18 [History] Irbesartan [Avapro] 300 mg PO DAILY 10/28/18 [History] Mirtazapine 7.5 mg PO HS 10/28/18 [History] Verapamil HCl [Verapamil ER] 240 mg PO DAILY 10/28/18 [History] glyBURIDE [GlyBURIDE] 2.5 mg PO BIDWM 10/28/18 [History] Acetaminophen [Tylenol] 325 mg PO BID 10/29/18 [History] Fluticasone Propionate Nasal [Flonase] 1 spray NS DAILY 10/29/18 [History] Allergies/Adverse Reactions: Allergy/AdvReac Type Severity Reaction Status Date / Time No Known Allergies Allergy Verified 10/28/18 17:18 Date of admission: 10/29/18 10:29 Primary care physician: Jammie Schumacher MD Consults: 10/31/18 09:16 Consult to Family Protection Specialist [CONS] Routine Reason for SW Consult: needs swing bed/rehab 11/01/18 08:03 Consult to Nephrology [CONS] Routine Consulting Provider: Kidney Ann/BETHANY/MILTON/SOPHIA Reason for Consult: worsening mell on CKD in setting of CHF Call Completed: No 11/02/18 08:15 Consult to Urology [CONS] Routine Consulting Provider: Urology Ann Reason for Consult: right sided hydronephrosis with possible stent malfunction with worsening kidney function Call Completed: Yes 11/02/18 10:14 Consult to Interventional Radiology [CONS] Routine Consulting Provider: Radiology Interventional Cols Reason for Consult: moderate right hydronephrosis, MELL, calcified ureteral stent, evaluate for right nephrostomy tube Time Notified: 10:15 Call Completed: Yes 11/05/18 04:40 Consult to Respiratory Therapy [CONS] Routine Reason for Consult: Add flutter valve Time Notified: 04:41 Call Completed: Yes 11/05/18 13:49 Consult to Infectious Diseases [CONS] Routine Consulting Provider: Infectious Disease Ann Reason for Consult: worsening leukocytosis with urine cultures growing MRSA And e. faecalis Call Completed: No 11/07/18 18:12 Consult to Oncology Hematology [CONS] Routine Consulting Provider: Luis A Valentin Reason for Consult: Leukocytosis Call Completed: Yes 11/07/18 18:25 Consult to PICC team [Consult to Invasive Line Access Team] [CONS] Routine Reason for Consult: Difficult stick Line Type: Midline 10/29/18 09:36 Consult to Occupational Therapy [CONS] Routine Comment: Evaluate, develop and implement POC Reason for Consult: improve ambulation, discharge planning Does patient have active BEDREST order?: No Is patient medically & hemodynamically stable?: Yes Consult to Physical Therapy [CONS] Routine Comment: Evaluate, develop and implement POC Reason for Consult: improve ambulation, discharge planning Does patient have active BEDREST order?: No Is patient medically & hemodynamically stable?: Yes - Constitutional Vitals: Temp Pulse Resp BP Pulse Ox 98.3 F 83 14 158/70 97 11/08/18 06:43 11/08/18 06:43 11/08/18 07:56 11/08/18 06:43 11/08/18 07:56 - Discharge Instructions Follow Up With: Jammie Schumacher MD [Primary Care Provider] - ([facility] is going [facility])
--- NOTE | 2018-11-08 10:24 | Nephrology Progress Note ---
Date of Encounter: 11/08/18 Time of Encounter: 10:21 - Assessment and Plan (1) Pneumonia Current Visit: Yes Status: Acute Per primary team. CT consistent multifocal PNA and RSV positive. Qualifiers: Pneumonia type: due to unspecified organism Laterality: right Lung location: lower lobe of lung Qualified Code(s): J18.1 - Lobar pneumonia, unsp ecified organism (2) UTI (urinary tract infection) Current Visit: Yes Status: Acute MRSA positive culture noted, abx per primary team. ID consult, appreciate recommendations. Qualifiers: Urinary tract infection type: acute cystitis Hematuria presence: with hematuria Qualified Code(s): N30.01 - Acute cystitis with hematuria (3) Pressure ulcer Current Visit: Yes Status: Acute Per wound care. Qualifiers: Pressure injury location: sacral region Pressure injury stage: stage 2 Qualified Code(s): L89.152 - Pressure ulcer of sacral region, stage 2 (4) Acute kidney injury superimposed on CKD Current Visit: Yes Status: Acute Labs still pending for today. GFR 25 yesterday. There is an underlying CKD given atrophic kidneys but pt denies any nephrology visits only urology with Dr Jeter. Continue to avoid nephrotoxins if possible. Patient and family have decided to go to [facility] for second opinion. (5) Hydronephrosis, right Current Visit: Yes Status: Acute s/p nephrostomy tube, urology following (6) Elevated uric acid in blood Current Visit: Yes Status: Acute Allipurinol ordered today. May increase to 200 mg PO daily when d/teresa. Subjective Principal diagnosis: pneumonia Interval history: Pt seen and examined doing well. Family at bedside, they have decided to seek second opinion at [facility]. Pt is resting comfortably with eyes closed. Objective - Vital Signs Vital signs: Vital Signs Temp Pulse Resp BP Pulse Ox 11/08/18 07:56 14 97 11/08/18 06:43 98.3 F 83 16 158/70 97 11/08/18 04:12 97.4 F L 74 18 158/64 98 11/08/18 00:19 98.5 F 73 17 145/51 96 11/07/18 20:05 98.9 F 72 18 138/68 98 11/07/18 16:39 97.9 F 72 19 137/71 97 11/07/18 12:13 97.6 F 71 19 136/70 98 Intake and Output 11/07/18 11/08/18 11/08/18 23:59 07:59 15:59 Intake Total 100 / 100 590 / 590 Output Total 1050 / 1050 250 / 250 300 / 300 Balance -1050 / -1050 -150 / -150 290 / 290 Intake: IV Fluids 100 / 100 350 / 350 Zosyn 3.375 GM In 0.9 % Sodium 100 / 100 100 / 100 Chloride (Mini-Bag +) 100 ML @ 25 mls/hr IVPB Q12H [id number] Rx#: [id number] Vancocin 1,000 MG In 0.9 % 250 / 250 Sodium Chloride 250 ML @ 167 mls/hr IVPB Q36H [facility] Rx#: [id number] Oral 240 / 240 Output: Urine 900 / 900 100 / 100 Right Nephrostomy 150 / 150 150 / 150 300 / 300 Other: Meal Breakfast Percent of Meal Consumed 0% Stool Size Smear Moderate Stool Consistency formed Stool Color Green Green # Bowel Movements 1 Weight 61.4 kg Blood Glucose* 207 100 Patient Weight 11/08/18 23:59 Weight 61.4 kg - General Appearance General appearance: Present: well-developed, well-nourished EENT: Present: ATNC, hearing intact, vision intact Neck: Present: supple Respiratory: Present: clear Cardiology: Present: edema (+1 pitting edema noted to bilat lower extremities.), normal S1, normal S2 Gastrointestinal: Present: normoactive bowel sounds, no tenderness, no guarding Integumentary: Present: no rash, warm and dry Neurologic: Present: alert and oriented x3 Psychiatric: Present: mood/affect appropriate, cooperative - Lab 11/08/18 09:51 11/07/18 15:41 Most recent lab results ABG pH 7.38 pH Units (7.32-7.45) 11/04/18 18: ABG pCO2 32 mmHg (35-45) L 11/04/18 18: ABG pO2 70 mmHg (85-104) L 11/04/18 18: ABG HCO3 19 mEq/L (21-27) L 11/04/18 18:19 ABG O2 Saturation 94 % (95-98) L 11/04/18 18: Calcium 8.4 mg/dL (8.6-10.3) L 11/07/18 15:41 Phosphorus 3.3 mg/dL (2.7-4.5) 11/06/18 06:21 Magnesium 2.2 mg/dL (1.6-2.6) 11/06/18 06:21 Urine Creatinine 60 mg/dL 10/29/18 12:24 Urine Sodium 78.9 mEq/L 10/29/18 12:24 Consult Discharge Plan - Plan Referrals: Jammie Schumacher MD [Primary Care Provider] - ([facility] is going to [facility])
[2018-11-08 10:27] LABS: Calcium 8.3 mg/dL (8.6-10.3); Potassium 3.7 mEq/L (3.5-5.1)
[2018-11-08] MEDS: Verapamil ER (24 HR) 240 MG TABLET.ER PO SCH (10:27)
[2018-11-08] MEDS: Nystatin SUSP 5 ML UD.LIQ BC SCH ×3 (10:27→17:13)
[2018-11-08 10:28] LABS: Platelet Estimate Slight Decrease (Normal)
--- NOTE | 2018-11-08 10:47 | Oncology Inp Consult Note ---
<Matt Altman - Last Filed: 11/08/18 17:41> Date of Encounter: 11/08/18 Time of Encounter: 10:37 Assessment and Plan (1) Leukocytosis Status: Acute Assessment and plan: No prior records to compare her WBC prior to this hospitalization. On admission, her WBC was 15.5. During the course of her hospitalization, this progressively increased to 20s and today is 33.2 According to family, patient has had fevers and chills right before her hos pitalization, likely secondary to underlying infection of RSV PNA and UTI patient unable to answer many questions today, but family denies that she has had any B symptoms such as weight loss or night sweats. Differentials include acute infectious process vs. malignancy such as leukemia. She has also been on steroids for several days, so likely this has been contributing as well. At this time, high suspicion that her high WBC is likely secondary to multiple infectious processes (RSV PNA, MRSA/enterococcous UTI) and inflammation going on in her body. No need for bone marrow biopsy at this time. Plan: smear path review pending. continue ABX and supportive measures. suspect WBC will decrease with time after infectious sources treated Qualifiers: Leukocytosis type: unspecified Qualified Code(s): D72.829 - Elevated white blood cell count, unspecified (2) Anemia Status: Acute Assessment and plan: iron deficiency anemia. has received one dose of IV iron as inpatient currently on oral iron-continue Qualifiers: Chronic kidney disease stage: unspecified stage Qualified Code(s): N18.9 - Chronic kidney disease, unspecified; D63.1 - Anemia in chronic kidney disease (3) MELL (acute kidney injury) Status: Acute Assessment and plan: Baseline kidney function unknown, as there are no prior records in her system. Patient arrived with worsening a K I multifactorial in setting of hydronephrosis, obstructed stent. Kidney function appears to be improving significantly after placement of urostomy tube. (4) Hydronephrosis, right Status: Acute Assessment and plan: As above (5) Pneumonia due to respiratory syncytial virus (RSV) Status: Acute (6) UTI (urinary tract infection), bacterial Status: Acute Assessment and plan: urine culture growing MRSA and enterococcous (amp sensitive) patient initially on vancomycin. However, zosyn was added due to worsening leukocytosis. - Data of Consult Patient: known to practice within the last 3 years Consult date: 11/08/18 Requesting Physician: Miller Rubio MD Primary Care Provider: Jammie Schumacher MD - Consult Narrative Reason for consult: leukocytosis History of present illness: Ms. Amezquita is 87-year-old female with past medical history of diabetes, hypertension, placement of pacemaker. [facility] with chief complaint coffin shortness of breath that failed outpatient treatment with azithromycin. Her symptoms have been going on for about 4-5 days. Patient was admitted for suspected pneumonia. Chest x-ray showed pleural effusions with suspected right lower lobe consolidation possibly representing pneumonia. During the course of her hospitalization, patient had MELL that was progressively getting worse. Consult to nephrology was made. Patient had retroperitoneal ultrasound that showed right-sided hydronephrosis. She subsequently had CT of the abdomen/pelvis confirming right hydronephrosis with right-sided ureteral stent calcification. Consult to IR was made for placement of right nephrostomy tube that was done on 11/02. Patient was found to have UTI growing both MRSA and enterococcous (Amp sensitive). She was initially on vancomycin only. However she continued to have significantly worsening leukocytosis and there is concern for possible perinephric abscess. Repeat CT of the abdomen and pelvis confirmed that there was no perinephric abscess. Hem atology/oncology service was consult it for worsening leukocytosis. Today, patient was laying in bed and appears very fatigued and is not able to answer many questions. Most of history was obtained from patient's daughter and other family members who were present at the bedside. According to patient's daughter, her weight has remained stable over the past couple months. Prior to hospitalization, patient was living by herself in her own apartment with family members living close by who visit very frequently. Her appetite was stable and she has no history of smoking or alcohol use. Prior to hospitalization, she denied fevers, chills, night sweats. Past Med Surg Social Fam HX - Past Medical History Medical history: diabetes, hypertension Additional medical history: pacemaker Psychiatric history: no psych history - Past Surgical History Surgical History: pacemaker - Social History Smoking Status: Never smoker Smokeless Tobacco Status: No Alcohol use: none Drug use: none - Family History Brother Hx Family Cancer: Yes (unknown) Father Living Status: Hx Family Cardiac Disorders: No Hx Family Respiratory Disorders: No Mother Hx Family Endocrine Disorder: Yes (diabetes) Son Living Status: Still Living Hx Family Cardiac Disorders: No Hx Family Respiratory Disorders: No Medications and Allergies RX: Azithromycin [Zithromax] 250 mg PO DAILY 10/28/18 [History] RX: Irbesartan [Avapro] 300 mg PO DAILY 10/28/18 [History] RX: Mirtazapine 7.5 mg PO HS 10/28/18 [History] RX: Verapamil HCl [Verapamil ER] 240 mg PO DAILY 10/28/18 [History] RX: glyBURIDE [GlyBURIDE] 2.5 mg PO BIDWM 10/28/18 [History] RX: Acetaminophen [Tylenol] 325 mg PO BID 10/29/18 [History] RX: Fluticasone Propionate Nasal [Flonase] 1 spray NS DAILY 10/29/18 [History] Allergy/AdvReac Type Severity Reaction Status Date / Time No Known Allergies Allergy Verified 10/28/18 17:18 ROS unobtainable: due to mental status Oncology - Exam - Constitutional Exam: Gen.: alert and oriented x3. Appears extremely fatigued. Not able to answer many questions. CV: regular rate and rhythm, no murmurs, rubs, gallops. Lower extremity edema noted. Respiratory: left upper extremity rales noted Abdomen: soft, non distended, mild tenderness to palpation, bowel sounds present. right sided nephrostomy tube in place with yellow colored urine draining. some tinged blood noted as well. extremities: +2 bilateral lower extremity pitting edema present. Consult Discharge Plan - Plan Referrals: Jammie Schumacher MD [Primary Care Provider] - (Patient is going to [facility]) Inpatient Charges Provider: Dr. Leilani Valentin <Luis A Valentin - Last Filed: 11/08/18 22:43> Date of Encounter: 11/08/18 - Data of Consult Requesting Physician: Miller Rubio MD Primary Care Provider: Jammie Schumacher MD - Attending Attestation I have seen and examined Ms. Amezquita and agree with the assessment from placed by the resident. She has not developed a neutral predominant leukocytosis in the setting of RSV pneumonia as well as urinary tract infection. Thorough evaluation has not revealed evidence of underlying abscess. Peripheral smear is currently pending. White blood cell count has started to decrease by labs today. This appears to be reactive neutrophil prominent leukocytosis related to severe infection. I would continue to monitor this clinically. I do not think bone marrow aspirate and biopsy would be beneficial at this time. Patient is very debilitated and has intermittent confusion. This is related to underlying infection. They are currently pursuing transfer to [facility] for further management. Words of encouragement were provided. We will sign Inpatient Charges Provider: Dr. Leilani Valentin Consult - Inpatient Medicare Only: [id number]
[2018-11-08] MEDS ORDERED: 0.9 % Sodium Chloride 1,000 ML IVC SCH (13:15)
--- NOTE | 2018-11-08 13:53 | Discharge Summary ---
- NOTES TO OUTPATIENT PROVIDER Notes to Outpatient Provider: PCP in 5 to 7 days. Transfering to [facility] Orders not resulted at time of discharge: Pending orders 11/04/18 16:57 Culture,Blood [BC] Routine 11/08/18 09:51 Procalcitonin Stat 11/08/18 11:01 Pathologist Blood Smear Review [HEME] Routine 11/09/18 04:00 BMP [Basic Metabolic Panel] AM 0400 Complete Blood Count [HEME] AM 0400 11/10/18 04:00 BMP [Basic Metabolic Panel] AM 0400 Complete Blood Count [HEME] AM 0400 11/11/18 04:00 BMP [Basic Metabolic Panel] AM 0400 Complete Blood Count [HEME] AM 0400 10/28/18 17:23 Culture,Sputum with Gram Stain [RM] Stat Date of Encounter: 11/08/18 Time of Encounter: 13:45 - Discharge Diagnosis (1) Acute metabolic encephalopathy Priority: Primary Status: Acute Assessment and Plan: Pt lethargic and has had worsening leukocytosis. May be mutifactorial secondary to steroids but infection cannot be ruled out. Steroids discontinued. Pt has MRSA and Enterococcus UTI. On Vancomycin and Zosyn. Repeat blood cultures incubating. CXR shows improved pleural effusions. Leukocytosis continues to worsen although patient has been afebrile. ID consulted to see for further management and had planned on LP but holding off due to family requesting transfer to [facility]. Also consulted oncology as family states pt has hx of leukocytosis and oncology states leukocytosis likely due to infectious process. (2) Pneumonia Priority: Primary Status: Acute Assessment and Plan: Continue patient on Levaquin and supportive care for viral pneumonia. Urine MRSA and Enterococcus faecalis positive. Blood cultures incubating. Pt is Vancomycin and Zosyn. ID evaluated and had planned LP but family requesting transfer. Acyclovir added. Qualifiers: Pneumonia type: due to unspecified organism Laterality: right Lung location: lower lobe of lung Qualified Code(s): J18.1 - Lobar pneumonia, unspecified organism (3) HTN (hypertension) Priority: Secondary Status: Acute Assessment and Plan: Continue with home medications. On Verapamil. Holding ARB due to MELL. Qualifiers: Hypertension type: essential hypertension Qualified Code(s): I10 - Essential (primary) hypertension (4) Diabetes type 2, uncontrolled Priority: Secondary Status: Acute Assessment and Plan: Continue Accu-Cheks and sliding scale with ADA diet after passing swallow evaluation Qualifiers: Glycemic state: with hyperglycemia Qualified Code(s): E11.65 - Type 2 diabetes mellitus with hyperglycemia (5) Anemia Priority: Secondary Status: Acute Assessment and Plan: Denies any dark color stool. No obvious acute bleeding. Possibly related to chronic kidney disease Continue ferrous sulfate. Gave one dose of venofer this admission due to severe iron deficiency Qualifiers: Chronic kidney disease stage: unspecified stage Qualified Code(s): N18.9 - Chronic kidney disease, unspecified; D63.1 - Anemia in chronic kidney disease (6) MELL (acute kidney injury) Priority: Primary Status: Acute Assessment and Plan: MELL on CKD stage 3. Likely secondary to hydronephrosis with occluded stent seen on stent. Had nephrostomy tube placed on 11/02 and has good output. Creatinine has trended down slightly with gentle hydration Cr as high as 3.37 down to 1.77 Renal following and appreciate recs. 11/06. Kidney function is recovering with gentle hydration. Scheduled IV fluids discontinued. (7) Acute respiratory failure Priority: Primary Status: Acute Assessment and Plan: Acute hypoxic hypercapnic respiratory failure likely secondary to COPD exacerbation, viral and bacterial pneumonia Pt had diffuse wheezing but that has improved. Started on IV steroids, continue antibiotic, nebs, and BIPAP as needed Improved. Wean off steroids Qualifiers: Respiratory failure complication: hypercapnia Qualified Code(s): J96.02 - Acute respiratory failure with hypercapnia (8) UTI (urinary tract infection) Priority: Primary Status: Acute Assessment and Plan: Urine cultures growing MRSA and Enterococcus. Continue vanc and zosyn Qualifiers: Urinary tract infection type: acute cystitis Hematuria presence: with hematuria Qualified Code(s): N30.01 - Acute cystitis with hematuria (9) Pressure ulcer Priority: Primary Status: Acute Assessment and Plan: Pt has stage 2 pressure ulcer. Continue dressing per wound care Qualifiers: Pressure injury location: sacral region Pressure injury stage: stage 2 Qualified Code(s): L89.152 - Pressure ulcer of sacral region, stage 2 (10) Hydronephrosis Priority: Primary Status: Acute Assessment and Plan: Hydronephrosis with MELL on CKD. CT showed significant right sided hydronephrosis with possible malfunctioning ureteral stent s/p nephrostomy tube placement by urologist. Gentle hydration PRN. Qualifiers: Qualified Code(s): N13.30 - Unspecified hydronephrosis Hospital course: History of present illness: Dr. Rubio Ms. Amezquita is a 87 year old female past medical history of diabetes and hypertension with pacemaker unknown cause was transferred from [facility] with complain of shortness of breath and cough as the hospital was full. Patient has been having coughing shortness of breath for past 4-5 days. Patient was seen by PCP and was started on azithromycin. She did not feel any improvement and had to go to ER for shortness of breath. She denies any fevers or chills. Denies any previous episodes of pneumonia. Denies any recent antibiotic usage. Denies any urinary or bowel complaints. She denies any history of heart attacks or kidney problems. She lives alone by herself and take care of herself. Patient had CBC and BMP flu testing EKG urinalyses and chest x-ray. Lab test showed white count of 14, hemoglobin of 9.5, bicarbonate of 20, glucose of 257, BUNs 48, creatinine 2.1, Flu testing unremarkable. Chest x-ray showed possible right lower lobe pneumonia. EKG had paced rhythm, urine analysis unremarkable for blood, leukocyte esterase, nitrates, WBC RBC and bacteria. She received Levaquin and nebulizer treatments and 500 mL of IV fluids. Her blood pressure was stable. Per nurse when she was initially transferred she was confused and altered.. On interview patient alert oriented and able to give good history. Complains of cough and shortness of breath for 4-5 days. Confirms above-mentioned history. Denies urinary complaints. Feeling much better in terms of breathing. Discussed CODE STATUS which she has not thought about before. Agrees to the keep full code for now however if needed would only to short-term life support. Son would be next of kin. Patient currently at home on medication including verapamil, glyburide, irbesartan, mirtazapine and azithromycin. Discharge discussed with: patient, family - Time Spent with Patient Total time spent providing and/or coordinating discharge services: Greater than 30 minutes - Discharge Medications Home Medications: Azithromycin [Zithromax] 250 mg PO DAILY 10/28/18 [History] Irbesartan [Avapro] 300 mg PO DAILY 10/28/18 [History] Mirtazapine 7.5 mg PO HS 10/28/18 [History] Verapamil HCl [Verapamil ER] 240 mg PO DAILY 10/28/18 [History] glyBURIDE [GlyBURIDE] 2.5 mg PO BIDWM 10/28/18 [History] Acetaminophen [Tylenol] 325 mg PO BID 10/29/18 [History] Fluticasone Propionate Nasal [Flonase] 1 spray NS DAILY 10/29/18 [History] Allergies/Adverse Reactions: Allergy/AdvReac Type Severity Reaction Status Date / Time No Known Allergies Allergy Verified 10/28/18 17:18 Date of admission: 10/29/18 10:29 Primary care physician: Jammie Schumacher MD Consults: 10/31/18 09:16 Consult to [employer] [CONS] Routine Reason for SW Consult: needs swing bed/rehab 11/01/18 08:03 Consult to Nephrology [CONS] Routine Consulting Provider: [facility] [place] Reason for Consult: worsening mell on CKD in setting of CHF Call Completed: No 11/02/18 08:15 Consult to Urology [CONS] Routine Consulting Provider: Urology Ann Reason for Consult: right sided hydronephrosis with possible stent malfuncti on with worsening kidney function Call Completed: Yes 11/02/18 10:14 Consult to Interventional Radiology [CONS] Routine Consulting Provider: Radiology Interventional [place] Reason for Consult: moderate right hydronephrosis, MELL, calcified ureteral stent, evaluate for right nephrostomy tube Time Notified: 10:15 Call Completed: Yes 11/05/18 04:40 Consult to Respiratory Therapy [CONS] Routine Reason for Consult: Add flutter valve Time Notified: 04:41 Call Completed: Yes 11/05/18 13:49 Consult to Infectious Diseases [CONS] Routine Consulting Provider: Infectious Disease [place] Reason for Consult: worsening leukocytosis with urine cultures growing MRSA And e. faecalis Call Completed: No 11/07/18 18:12 Consult to Oncology Hematology [CONS] Routine Consulting Provider: Luis A Valentin Reason for Consult: Leukocytosis Call Completed: Yes 11/07/18 18:25 Consult to PICC team [Consult to Invasive Line Access Team] [CONS] Routine Reason for Consult: Difficult stick Line Type: Midline 11/08/18 10:12 Consult to Invasive Line Access Team [CONS] Routine Reason for Consult: Limited vascular access. Line Type: EPIV 10/29/18 09:36 Consult to Occupational Therapy [CONS] Routine Comment: Evaluate, develop and implement POC Reason for Consult: improve ambulation, discharge planning Does patient have active BEDREST order?: No Is patient medically & hemodynamically stable?: Yes Consult to Physical Therapy [CONS] Routine Comment: Evaluate, develop and implement POC Reason for Consult: improve ambulation, discharge planning Does patient have active BEDREST order?: No Is patient medically & hemodynamically stable?: Yes Discharging clinician: Lesvia Oliva Anticipated date of discharge: 11/08/18 - Constitutional Vitals: Temp Pulse Resp BP Pulse Ox 98.5 F 73 18 158/70 97 11/08/18 10:50 11/08/18 10:50 11/08/18 10:50 11/08/18 10:50 11/08/18 10:50 Exam: Exam: Physical exam: Constitutional: Vitals as noted. Conversant. mild respiratory Distress. Drowsy. Respiratory : mild accessory muscle use, no rales,. rhonchi heard on RLL. Crackes heard on both base. Cardiovascular : RRR, +S1, +S2. no murmur, gallop, rubs. No chest wall tenderness GI/Abdominal : Soft, Non-tender, Non-distended, normal bowel sounds, soft, no peritoneal signs. no orgenomegaly or mass appreciated. no hernia. Musculoskeletal: no deformity noted. 1+ edema or no cyanosis. warm extremities, pulses palpable and symmetrical in UE/LE. no calf tenderness. Neurological: AO X3, CN II-XII grossly intact, grossly normal motor and sensory exam. Extremity: Trace edema. No pain with palpation. Skin: No rash, warm, no bumps. Psych: Good insight and judgement. Intact memory. AOx3. - Patient Status Disposition: Transfer Intermediate Care Fac Condition: Fair Overall status at discharge: patient is not back to baseline - Discharge Instructions Follow Up With: Jammie Schumacher MD [Primary Care Provider] - (Patient is going to [facility]) - Diet and Activity Activity: as per physical therapy, increase activity as tolerated Diet: diabetic diet, low fat, low cholesterol, low salt diet
[2018-11-08 16:44] VITALS: BP 157/65
[2018-11-08] MEDS ORDERED: Aminoglycoside Consult 1 EACH MC ONE (19:02)
== END 2018-11-08 19:03 | DRG 871 ==
LOC: 3BNU → SUATTDRO 15:33 → 2ANU 10-30 16:51
PROVIDERS: ADMIT Internal Medicine; ATTEND Internal Medicine